=== PATIENT | male | born 1980 | race Caucasian/White ===

== ENCOUNTER 2020-08-01 22:34 | Emergency (ER) | payer OTHER ==
[2020-08-01 22:39] VITALS: RESP 18
[2020-08-01] MEDS ORDERED: ONDANSETRON 4 MG/2 ML VIAL IVP STA (23:01)
[2020-08-01] MEDS ORDERED: MAG HYDROX/AL HYDROX/SIMETH 30 ML, HYOSCYAMINE ELIXIR 10 ML, LIDOCAINE VISCOUS 2% 10 ML PO STA ×3 (23:02)
[2020-08-01] MEDS ORDERED: SODIUM CHLORIDE 0.9% 500 ML 500 ML IV STA (23:07)
[2020-08-01 23:25] LABS: Basophils # (A) 0.1 k/uL (0-0.2); Basophils % (A) 1 %; Eosinophils # (A) 0.7 k/uL (0-0.7); Eosinophils % (A) 5 %; HCT 44.2 % (39.0-53.0); HGB 15.1 gm/dL (13.0-17.5); Lymphocytes # (A) 2.3 k/uL (1.0-4.8); Lymphocytes % (A) 16 %; MCH 29.8 pg (25.0-35.0); MCHC 34.2 g/dL (31.0-37.0); Mean Platelet Volume 7.4; Monocytes # (A) 0.8 k/uL (0-1.0); Monocytes % (A) 6 %; Neutrophils # (A) 10.8 k/uL (1.3-7.7); Neutrophils % (A) 73 %; Platelet Count 270 k/uL (150-450); RBC 5.08 m/uL (4.30-5.90); RDW 14.2 % (11.5-15.5); WBC 14.8 k/uL (3.8-10.6)
--- NOTE | 2020-08-01 23:25 | ED ---
Abdominal Pain HPI - General Chief Complaint: Abdominal Pain Stated Complaint: Abd pain Time Seen by Provider: 08/01/20 22:36 Source: patient, EMS Mode of arrival: EMS Limitations: no limitations - History of Present Illness Initial Comments: This patient is a 40-year-old man brought by ambulance to have evaluation for left upper quadrant pain. The patient states that he has been having pains intermittently going back approximately 2 weeks. He first experienced this pain after he had eaten approximately a half gallon of branch dressing that she had purchased. The pain lasted number of hours and then resolved. It has recurred 3 or 4 times since then including when it came back on tonight. Tonight's episode was severe. Also the pain accompanied by nausea and vomiting. Tonight he had 3 or 4 episodes. He has not seen any blood or coffee-ground emesis. After EMS picked up the patient he was given Zofran 4 mg and fentanyl 100 g, and states that the pain is much better. MD Complaint: abdominal pain Onset/Timin -: week(s) Location: [facility] Radiation: none Migration to: no migration Severity: moderate Quality: aching Consistency: intermittent Improves With: nothing Worsens With: nothing Associated Symptoms: nausea, vomiting Treatments Prior to Arrival: other - Related Data Previous Rx's Medication Instructions Recorded Omeprazole 40 mg PO DAILY #7 capsule. 08/02/20 Allergies Allergy/AdvReac Type Severity Reaction Status Date / Time No Known Allergies Allergy Verified 08/01/20 22:39 Review of Systems ROS Statement: Those systems with pertinent positive or pertinent negative responses have been documented in the HPI. ROS Other: All systems not noted in ROS Statement are negative. Constitutional: Denies: fever, chills Respiratory: Denies: cough, dyspnea Cardiovascular: Denies: chest pain, palpitations, edema Gastrointestinal: Reports: abdominal pain, nausea, vomiting. Denies: diarrhea, constipation, hematemesis, melena, hematochezia Genitourinary: Denies: dysuria, frequency, hematuria, testicular pain, testicular mass Musculoskeletal: Denies: back pain Skin: Denies: rash Neurological: Denies: headache, weakness, numbness Past Medical History Additional Past Medical History / Comment(s): Pt states history of blood clots in left leg and lung in 2016 History of Any Multi-Drug Resistant Organisms: None Reported Past Surgical History: No Surgical Hx Reported Past Psychological History: Depression Smoking Status: Current every day smoker Past Alcohol Use History: None Reported Past Drug Use History: None Reported General Exam Limitations: no limitations General appearance: alert, in no apparent distress Head exam: Present: atraumatic, normocephalic Eye exam: Present: normal appearance. Absent: scleral icterus, conjunctival in jection ENT exam: Present: normal oropharynx Neck exam: Present: normal inspection Respiratory exam: Present: normal lung sounds bilaterally. Absent: respiratory distress, wheezes, rales, rhonchi, stridor Cardiovascular Exam: Present: regular rate, normal rhythm, normal heart sounds. Absent: systolic murmur, diastolic murmur, rubs, gallop GI/Abdominal exam: Present: soft, tenderness, normal bowel sounds. Absent: distended, guarding, rebound, rigid, mass, pulsatile mass, hernia Extremities exam: Present: normal inspection, normal capillary refill. Absent: pedal edema, calf tenderness Back exam: Present: normal inspection. Absent: CVA tenderness (R), CVA tenderness (L) Neurological exam: Present: alert Skin exam: Present: warm, dry, intact, normal color. Absent: rash Course Vital Signs 08/01/20 08/01/20 22:35 23:55 Temperature 98.8 F Pulse Rate 90 71 Respiratory 18 18 Rate Blood Pressure 136/92 130/71 O2 Sat by Pulse 95 96 Oximetry Medical Decision Making - Lab Data Result diagrams: 08/01/20 23:09 08/01/20 23:09 Lab Results 08/01/20 08/01/20 08/02/20 Range/Units 23:09 23:09 00:35 WBC 14.8 H (3.8-10.6) k/uL RBC 5.08 (4.30-5.90) m/uL Hgb 15.1 (13.0-17.5) gm/dL Hct 44.2 (39.0-53.0) % MCV 87.0 (80.0-100.0) fL MCH 29.8 (25.0-35.0) pg MCHC 34.2 (31.0-37.0) g/dL RDW 14.2 (11.5-15.5) % Plt Count 270 (150-450) k/uL MPV 7.4 Neutrophils % 73 % Lymphocytes % 16 % Monocytes % 6 % Eosinophils % 5 % Basophils % 1 % Neutrophils # 10.8 H (1.3-7.7) k/uL Lymphocytes # 2.3 (1.0-4.8) k/uL Monocytes # 0.8 (0-1.0) k/uL Eosinophils # 0.7 (0-0.7) k/uL Basophils # 0.1 (0-0.2) k/uL Sodium 140 (137-145) mmol/L Potassium 5.3 H (3.5-5.1) mmol/L Chloride 104 (98-107) mmol/L Carbon Dioxide 26 (22-30) mmol/L Anion Gap 10 mmol/L BUN 20 (9-20) mg/dL Creatinine 0.62 L (0.66-1.25) mg/dL Est GFR (CKD-EPI)AfAm >90 (>60 ml/min/1.73 sqM) Est GFR (CKD-EPI)NonAf >90 (>60 ml/min/1.73 sqM) Glucose 124 H (74-99) mg/dL Calcium 9.7 (8.4-10.2) mg/dL Total Bilirubin 0.9 (0.2-1.3) mg/dL AST 40 (17-59) U/L ALT 29 (4-49) U/L Alkaline Phosphatase 57 (38-126) U/L Total Protein 7.5 (6.3-8.2) g/dL Albumin 4.2 (3.5-5.0) g/dL Amylase 50 (30-110) U/L Lipase 155 (23-300) U/L Urine Color Yellow Urine Appearance Clear (Clear) Urine pH 6.0 (5.0-8.0) Ur Specific [place] 1.028 (1.001-1.035) Urine Protein Trace H (Negative) Urine Glucose (UA) Negative (Negative) Urine Ketones Negative (Negative) Urine Blood Small H (Negative) Urine Nitrite Negative (Negative) Urine Bilirubin Negative (Negative) Urine Urobilinogen 2.0 (<2.0) mg/dL Ur Leukocyte Esterase Negative (Negative) Urine RBC 5 (0-5) /hpf Urine WBC 2 (0-5) /hpf Ur Squamous Epith Cells <1 (0-4) /hpf Hyaline Casts 1 (0-2) /lpf Urine Mucus Moderate H (None) /hpf Disposition Clinical Impression: Abdominal pain, Gastritis Disposition: HOME SELF-CARE Condition: Good Instructions (If sedation given, give patient instructions): Abdominal Pain ( ED) Prescriptions: Omeprazole 40 mg PO DAILY #7 capsule.dr Is patient prescribed a controlled substance at d/c from ED?: No Referrals: None,Stated [REFERRING] - 1-2 days
[2020-08-01 23:30] LABS: ALT 29 U/L (4-49); AST 40 U/L (17-59); African American GFR (CKD) >90 (>60 ml/min/1.73 sqM); Albumin 4.2 g/dL (3.5-5.0); Alkaline Phosphatase 57 U/L (38-126); Amylase 50 U/L (30-110); Anion Gap 10 mmol/L; Blood Urea Nitrogen 20 mg/dL (9-20); Calcium 9.7 mg/dL (8.4-10.2); Carbon Dioxide 26 mmol/L (22-30); Chloride 104 mmol/L (98-107); Glucose 124 mg/dL (74-99); Lipase 155 U/L (23-300); Non-African American GFR(CKD) >90 (>60 ml/min/1.73 sqM); Sodium 140 mmol/L (137-145); Total Bilirubin 0.9 mg/dL (0.2-1.3); Total Protein 7.5 g/dL (6.3-8.2)
[2020-08-01 23:44] LABS: Potassium 5.3 mmol/L (3.5-5.1)
--- NOTE | 2020-08-02 00:30 | CT ---
EXAMINATION TYPE: CT abdomen pelvis wo con DATE OF EXAM: 08/02/2020 COMPARISON: None HISTORY: Epigastric pain CT DLP: mGycm Automated exposure control for dose reduction was used. Images obtained from the diaphragm to the floor the pelvis with no contrast. Lung bases are clear. There is no pleural effusion. Heart size is normal. There is no pericardial eff usion. Liver spleen pancreas gallbladder appear normal. Bile ducts are not dilated. There is no adrenal mass. Kidneys have normal size and contour. There is 1 mm calculus interpolar rig ht kidney. There is no hydronephrosis. Bladder distends smoothly. There is no inguinal hernia. There is no free fluid in the pelvis. Ureters are not dilated. There is no retroperitoneal adenopathy. Lumbar vertebra have normal alignment. Disc spaces are fairly normal. The bony pelvis is intact. There is no mesenteric edema. There is no ascites or free air. There is no sign of a bowel obstructio n. Appendix is medial and appears normal. IMPRESSION: Normal appendix. No evidence of renal obstruction. I do not see a cause for epigastric pain. Left tin y nonobstructing right renal calculus.
[2020-08-02] MEDS ORDERED: KETOROLAC 15 MG/ML 1 ML VIAL IVP STA (00:44)
[2020-08-02 00:47] LABS: Appearance,Urine Clear (Clear); Bilirubin,Urine Negative (Negative); Blood,Urine Small (Negative); Color,Urine Yellow; Glucose,Urine (UA) Negative (Negative); Hyaline Casts,Urine 1 /lpf (0-2); Ketones,Urine Negative (Negative); Leukocyte Esterase,Urine Negative (Negative); Mucus,Urine Moderate /hpf; Nitrite,Urine Negative (Negative); Protein,Urine Trace (Negative); RBC,Urine 5 /hpf (0-5); Specific Gravity,Urine 1.028 (1.001-1.035); Squamous Epithelial Cell,Urine <1 /hpf (0-4); WBC,Urine 2 /hpf (0-5)
--- NOTE | 2020-08-02 01:55 | US ---
EXAM: US Abdomen Limited - Right Upper Quadrant CLINICAL HISTORY: ITS.REASON US Reason: attention upper abdomen TECHNIQUE: Real-time ultrasound of the abdomen with image documentation. COMPARISON: correlation is made with CT performed on same date FINDINGS: Liver: Diffusely increased in echogenicity with no surface nodularity. Borderline enlarged liver with right hepatic lobe measuring 18.8 cm in craniocaudal dimension. Limited evaluation for masses due to extensive sound attenuation. No intrahepatic bile duct dilation. Gallbladder: Distended with no shadowing gallstones. No significant wall thickening. Negative sonographic [place]'s per nozzleman report. Common bile duct: Unremarkable as visualized. No stones. No dilation. Common bile duct measures 3 mm in diameter. Pancreas: Obscured by overlying bowel gas. Right kidney: Right kidney measures 10.4 cm in length.. No stones. No solid mass. No hydronephrosis. IMPRESSION: 1. Distended gallbladder with no shadowing gallstones or sonographic evidence of acute cholecystitis. 2. No intrahepatic or extra hepatic biliary ductal dilation. 3. No hydronephrosis or shadowing stones in the right kidney. 4. Hepatic steatosis.
[2020-08-02 02:27] VITALS: BP 128/82; PULSE 86; TEMP 98
== END 2020-08-02 02:20 | disposition home or self-care (01) ==
LOC: EC 22:34
DX: K29.70 Gastritis, unspecified, without bleeding (principal); F17.200 Nicotine dependence, unspecified, uncomplicated
CPT/HCPCS: 36415; 80053; 82150; 83690; 85025; 81001; 76705; 74176; 99284; 96374; 96375; 96361; J2405; J1885

== ENCOUNTER 2020-12-06 12:04 | Emergency (ER) | payer OTHER ==
[2020-12-06 12:30] VITALS: BP 127/83; PULSE 91; RESP 18; TEMP 98
[2020-12-06] MEDS ORDERED: SODIUM CHLORIDE 0.9% 1,000 ML IV ONE (13:58)
[2020-12-06] MEDS ORDERED: KETOROLAC 15 MG/ML 1 ML VIAL IVP STA (13:58)
--- NOTE | 2020-12-06 14:02 | ED ---
General Adult HPI - General Chief complaint: Dizziness Stated complaint: Pain in groin/neck/headache/dizziness Time Seen by Provider: 12/06/20 13:50 Source: patient, RN notes reviewed, old records reviewed Mode of arrival: ambulatory Limitations: no limitations - History of Present Illness Initial comments: 40-year-old male with several complaints. Complains of occipital headache, fatigue, dizziness as well as pain in both legs and swelling in the left leg with history of DVT. He denies chest pain or dyspnea. Denies abdominal pain nausea vomiting. Symptoms have been present for the past several weeks. He does have chronic pain but states this is different. He has pain in both legs and he noted some swelling in the left leg with previous history of DVT in that leg. He is not currently on any anticoagulation. No reported fevers. No URI symptoms. Minimal cough. - Related Data Previous Rx's Medication Instructions Recorded Omeprazole 40 mg PO DAILY #7 capsule. 08/02/20 Allergies Allergy/AdvReac Type Severity Reaction Status Date / Time No Known Allergies Allergy Verified 12/06/20 12:30 Review of Systems ROS Statement: Those systems with pertinent positive or pertinent negative responses have been documented in the HPI. ROS Other: All systems not noted in ROS Statement are negative. Past Medical History Additional Past Medical History / Comment(s): Pt states history of blood clots in left leg and lung in 2016 History of Any Multi-Drug Resistant Organisms: None Reported Past Surgical History: No Surgical Hx Reported Past Psychological History: Depression Smoking Status: Current every day smoker Past Alcohol Use History: None Reported Past Drug Use History: None Reported General Exam Limitations: no limitations General appearance: alert, in no apparent distress Head exam: Present: atraumatic, normocephalic Eye exam: Present: normal appearance, PERRL ENT exam: Present: normal exam Neck exam: Present: normal inspection. Absent: tenderness, meningismus Respiratory exam: Present: normal lung sounds bilaterally. Absent: respiratory distress, wheezes Cardiovascular Exam: Present: regular rate, normal rhythm GI/Abdominal exam: Present: soft. Absent: distended, tenderness, guarding Extremities exam: Present: normal inspection, normal capillary refill. Absent: pedal edema, calf tenderness Neurological exam: Present: alert, CN II-XII intact. Absent: motor sensory deficit Psychiatric exam: Present: normal affect, normal mood. Absent: anxious, suicidal ideation Skin exam: Present: warm, dry, intact. Absent: cyanosis, diaphoretic Course Vital Signs 12/06/20 12:27 Temperature 98.0 F Pulse Rate 91 Respiratory 18 Rate Blood Pressure 127/83 O2 Sat by Pulse 100 Oximetry Medical Decision Making - Medical Decision Making 40-year-old male presenting with several issues ongoing for the past several weeks, headache, myalgia history of DVT. Patient had ultrasound performed which is negative for DVT. He has mild leukocytosis, otherwise unremarkable laboratory testing. Head CT is negative for intracranial hemorrhage or mass effect, there is some loss of differentiation and does recommend MRI. Patient is informed of this and will follow with his primary care. He states he will likely be only get an appointment tomorrow. Return parameters discussed. - Lab Data Result diagrams: 12/06/20 14:08 12/06/20 14:08 Lab Results 12/06/20 12/06/20 12/06/20 Range/Units 14:08 14:08 14:08 WBC 12.4 H (3.8-10.6) k/uL RBC 5.11 (4.30-5.90) m/uL Hgb 15.0 (13.0-17.5) gm/dL Hct 43.9 (39.0-53.0) % MCV 85.9 (80.0-100.0) fL MCH 29.4 (25.0-35.0) pg MCHC 34.3 (31.0-37.0) g/dL RDW 13.6 (11.5-15.5) % Plt Count 262 (150-450) k/uL MPV 7.0 Neutrophils % 58 % Lymphocytes % 28 % Monocytes % 6 % Eosinophils % 7 % Basophils % 1 % Neutrophils # 7.2 (1.3-7.7) k/uL Lymphocytes # 3.4 (1.0-4.8) k/uL Monocytes # 0.7 (0-1.0) k/uL Eosinophils # 0.9 H (0-0.7) k/uL Basophils # 0.1 (0-0.2) k/uL PT 9.7 (9.0-12.0) sec INR 0.9 (<1.2) APTT 22.6 (22.0-30.0) sec Sodium (137-145) mmol/L Potassium (3.5-5.1) mmol/L Chloride (98-107) mmol/L Carbon Dioxide (22-30) mmol/L Anion Gap mmol/L BUN (9-20) mg/dL Creatinine (0.66-1.25) mg/dL Est GFR (CKD-EPI)AfAm (>60 ml/min/1.73 sqM) Est GFR (CKD-EPI)NonAf (>60 ml/min/1.73 sqM) Glucose (74-99) mg/dL Calcium (8.4-10.2) mg/dL Magnesium (1.6-2.3) mg/dL Total Bilirubin (0.2-1.3) mg/dL AST (17-59) U/L ALT (4-49) U/L Alkaline Phosphatase (38-126) U/L Total Protein (6.3-8.2) g/dL Albumin (3.5-5.0) g/dL Urine Opiates Screen (NotDetected) Ur Oxycodone Screen (NotDetected) Urine Methadone Screen (NotDetected) Ur Propoxyphene Screen (NotDetected) Ur Barbiturates Screen (NotDetected) U Tricyclic Antidepress (NotDetected) Ur Phencyclidine Scrn (NotDetected) Ur Amphetamines Screen (NotDetected) U Methamphetamines Scrn (NotDetected) U Benzodiazepines Scrn (NotDetected) Urine Cocaine Screen (NotDetected) U Marijuana (THC) Screen (NotDetected) Coronavirus (PCR) Not Detected (Not Detectd) 12/06/20 12/06/20 12/06/20 Range/Units 14:08 14:08 14:08 WBC (3.8-10.6) k/uL RBC (4.30-5.90) m/uL Hgb (13.0-17.5) gm/dL Hct (39.0-53.0) % MCV (80.0-100.0) fL MCH (25.0-35.0) pg MCHC (31.0-37.0) g/dL RDW (11.5-15.5) % Plt Count (150-450) k/uL MPV Neutrophils % % Lymphocytes % % Monocytes % % Eosinophils % % Basophils % % Neutrophils # (1.3-7.7) k/uL Lymphocytes # (1.0-4.8) k/uL Monocytes # (0-1.0) k/uL Eosinophils # (0-0.7) k/uL Basophils # (0-0.2) k/uL PT (9.0-12.0) sec INR (<1.2) APTT (22.0-30.0) sec Sodium 140 (137-145) mmol/L Potassium 5.1 (3.5-5.1) mmol/L Chloride 106 (98-107) mmol/L Carbon Dioxide 24 (22-30) mmol/L Anion Gap 10 mmol/L BUN 19 (9-20) mg/dL Creatinine 0.67 (0.66-1.25) mg/dL Est GFR (CKD-EPI)AfAm >90 (>60 ml/min/1.73 sqM) Est GFR (CKD-EPI)NonAf >90 (>60 ml/min/1.73 sqM) Glucose 96 (74-99) mg/dL Calcium 9.8 (8.4-10.2) mg/dL Magnesium 1.8 (1.6-2.3) mg/dL Total Bilirubin 0.9 (0.2-1.3) mg/dL AST 48 (17-59) U/L ALT 33 (4-49) U/L Alkaline Phosphatase 73 (38-126) U/L Total Protein 7.3 (6.3-8.2) g/dL Albumin 4.2 (3.5-5.0) g/dL Urine Opiates Screen Detected H (NotDetected) Ur Oxycodone Screen Not Detected (NotDetected) Urine Methadone Screen Not Detected (NotDetected) Ur Propoxyphene Screen Not Detected (NotDetected) Ur Barbiturates Screen Not Detected (NotDetected) U Tricyclic Antidepress Not Detected (NotDetected) Ur Phencyclidine Scrn Not Detected (NotDetected) Ur Amphetamines Screen Not Detected (NotDetected) U Methamphetamines Scrn Not Detected (NotDetected) U Benzodiazepines Scrn Not Detected (NotDetected) Urine Cocaine Screen Not Detected (NotDetected) U Marijuana (THC) Screen Not Detected (NotDetected) Coronavirus (PCR) (Not Detectd) Disposition Clinical Impression: Headache Disposition: HOME SELF-CARE Condition: Good Instructions (If sedation given, give patient instructions): Dizziness (ED), Acute Headache (ED) Is patient prescribed a controlled substance at d/c from ED?: No Referrals: Chinedu Mcfadden DO [Primary Care Provider] - 1-2 days Time of Disposition: 16:18
[2020-12-06 14:37] LABS: Basophils # (A) 0.1 k/uL (0-0.2); Basophils % (A) 1 %; Eosinophils # (A) 0.9 k/uL (0-0.7); Eosinophils % (A) 7 %; HCT 43.9 % (39.0-53.0); Lymphocytes # (A) 3.4 k/uL (1.0-4.8); Lymphocytes % (A) 28 %; MCH 29.4 pg (25.0-35.0); MCHC 34.3 g/dL (31.0-37.0); MCV 85.9 fL (80.0-100.0); Monocytes # (A) 0.7 k/uL (0-1.0); Monocytes % (A) 6 %; Neutrophils # (A) 7.2 k/uL (1.3-7.7); Neutrophils % (A) 58 %; Platelet Count 262 k/uL (150-450); RBC 5.11 m/uL (4.30-5.90); RDW 13.6 % (11.5-15.5); WBC 12.4 k/uL (3.8-10.6)
[2020-12-06 14:52] LABS: Amphetamine Screen,Urine Not Detected (NotDetected); Barbiturate Screen,Urine Not Detected (NotDetected); Benzodiazepines Screen,Urine Not Detected (NotDetected); Cocaine Screen,Urine Not Detected (NotDetected); Methadone Screen, Urine Not Detected (NotDetected); Opiate Screen,Urine Detected (NotDetected); Oxycodone Screen, Urine Not Detected (NotDetected); Phencyclidine Screen,Urine Not Detected (NotDetected); Tricyclic Antidepressant,Urine Not Detected (NotDetected); Urn Cannabinoid Scrn Not Detected (NotDetected)
--- NOTE | 2020-12-06 14:54 | CT ---
EXAMINATION TYPE: CT brain wo con DATE OF EXAM: 12/06/2020 COMPARISON: None HISTORY: headache CT DLP: 1052.4 mGycm. Automated Exposure Control for Dose Reduction was Utilized. TECHNIQUE: CT scan of the head is performed without contrast. FINDINGS: There is no acute intracranial hemorrhage, mass effect, or midline shift identified. [place] ventricular white matter shows some questionable patchy low attenuation. The ventricles and sulci ar e within normal limits in size. The globes are intact and the visualized sinuses are clear. IMPRESSION: No acute intracranial hemorrhage, mass effect, or midline shift is seen. Nonspecific whi te matter low-attenuation could represent demyelination, consider MRI as indicated.
[2020-12-06 15:06] LABS: INR 0.9 (<1.2); Partial Thromboplastin Time 22.6 sec (22.0-30.0); Prothrombin Time 9.7 sec (9.0-12.0)
[2020-12-06 15:26] LABS: ALT 33 U/L (4-49); AST 48 U/L (17-59); African American GFR (CKD) >90 (>60 ml/min/1.73 sqM); Albumin 4.2 g/dL (3.5-5.0); Alkaline Phosphatase 73 U/L (38-126); Anion Gap 10 mmol/L; Blood Urea Nitrogen 19 mg/dL (9-20); Calcium 9.8 mg/dL (8.4-10.2); Carbon Dioxide 24 mmol/L (22-30); Chloride 106 mmol/L (98-107); Glucose 96 mg/dL (74-99); Non-African American GFR(CKD) >90 (>60 ml/min/1.73 sqM); Sodium 140 mmol/L (137-145); Total Bilirubin 0.9 mg/dL (0.2-1.3); Total Protein 7.3 g/dL (6.3-8.2)
[2020-12-06 15:28] LABS: Potassium 5.1 mmol/L (3.5-5.1)
--- NOTE | 2020-12-06 15:40 | US ---
EXAMINATION TYPE: US venous doppler duplex LE DATE OF EXAM: 12/06/2020 3:34 PM COMPARISON: NONE CLINICAL HISTORY: dvt?. SIDE PERFORMED: Bilateral TECHNIQUE: The lower extremity deep venous system is examined utilizing real time linear array sonog dylan with graded compression, doppler sonography and color-flow sonography. VESSELS IMAGED: Common Femoral Vein Deep Femoral Vein Greater Saphenous Vein * Femoral Vein Popliteal Vein Small Saphenous Vein * Proximal Calf Veins (* superficial vessels) Right Leg: Appears negative for DVT. Left Leg: Appears negative for DVT. Morbidly obese patient, technically difficult study. IMPRESSION: Grayscale, color doppler, spectral doppler imaging performed of the deep veins of the lo wer extremities. There is normal flow, compressibility, vascular waveforms.
== END 2020-12-06 16:30 | disposition home or self-care (01) ==
LOC: EC 12:04
DX: R51.9 Headache, unspecified (principal); R42 Dizziness and giddiness; M54.2 Cervicalgia; R10.30 Lower abdominal pain, unspecified; R05 Cough; R53.83 Other fatigue; M79.604 Pain in right leg; M79.605 Pain in left leg; M79.89 Other specified soft tissue disorders; F32.9 Major depressive disorder, single episode, unspecified; F17.200 Nicotine dependence, unspecified, uncomplicated; Z86.718 Personal history of other venous thrombosis and embolism; Z20.822 Contact with and (suspected) exposure to COVID-19
CPT/HCPCS: 36415; 80053; 83735; 85025; 85610; 85730; 80306; 87635; 93970; 70450; 99284; 96374; J1885

== ENCOUNTER 2021-07-25 17:18 | Inpatient (IN) | payer OTHER ==
[2021-07-25] MEDS ORDERED: SODIUM CHLORIDE 0.9% 1,000 ML IV STA (19:59)
[2021-07-25] MEDS ORDERED: methylPREDNISolone SOD SUCCI 125 MG/2 ML VIAL IV STA (19:59)
[2021-07-25] MEDS ORDERED: IPRATROPIUM-ALBUTEROL 3 ML NEB INHALATION STA (19:59)
--- NOTE | 2021-07-25 20:01 | ED ---
SOB HPI - General Chief Complaint: Shortness of Breath Stated Complaint: CRYSTAL Time Seen by Provider: 07/25/21 19:28 Source: patient Mode of arrival: ambulatory Limitations: no limitations - History of Present Illness Initial Comments: 41-year-old male with past medical history of PE/DVT presents to the emergency department with reported cough, congestion and shortness of breath for the past 10 days. He went into an urgent care last week with his family as they'll had similar symptoms. They were swabbed for Covid and it was negative. He was given prednisone 40 mg twice daily for 5 days. Finished the prescription. States that after he finished the prescription his symptoms got worse. He began having worsening shortness of breath with exertion. He also reports to "lung pain" at the right shoulder. Patient has chronic lower externally edema which he states is not any worse than normal. Denies calf pain. Does state that he had a history of a PE approximately 8 years ago. He is supposed to be on anticoagulation however states he has not taken medications in greater than 2 years. He also had a [place] filter which was removed. Patient states that he had a full workup for the blood clot however never found a source. He no longer follows with anyone to manage his PE. Patient does arrive with a fever. Denies ripping or tearing sensation to his back. Denies any cardiac history. No other alleviating, precipitating factors - Related Data Home Medications Medication Instructions Recorded Confirmed Albuterol Sulfate [Ventolin HFA] 2 puff INHALATION RT-Q6H PRN 07/25/21 07/25/21 Ergocalciferol (Vitamin D2) 1,250 mcg PO MO 07/25/21 07/25/21 [Drisdol (50,000 Iu)] Famotidine 40 mg PO BID PRN 07/25/21 07/25/21 HYDROcodone/APAP 10-325MG [[place] 1 tab PO Q6HR PRN 07/25/21 07/25/21 10-325] Allergies Allergy/AdvReac Type Severity Reaction Status Date / Time No Known Allergies Allergy Verified 07/25/21 18:27 Review of Systems ROS Statement: Those systems with pertinent positive or pertinent negative responses have been documented in the HPI. ROS Other: All systems not noted in ROS Statement are negative. Past Medical History Past Medical History: COPD Additional Past Medical History / Comment(s): Pt states history of blood clots in left leg and lung in 2016 History of Any Multi-Drug Resistant Organisms: None Reported Past Surgical History: No Surgical Hx Reported Past Psychological History: Depression Smoking Status: Current every day smoker Past Alcohol Use History: None Reported Past Drug Use History: None Reported General Exam Limitations: no limitations Course Vital Signs 07/25/21 07/25/21 07/25/21 18:27 19:43 20:30 Temperature 100.6 F H Pulse Rate 105 H 106 H Respiratory 22 22 18 Rate Blood Pressure 165/86 O2 Sat by Pulse 94 L 98 Oximetry 07/25/21 07/25/21 20:55 23:01 Temperature Pulse Rate 106 H 105 H Respiratory 18 Rate Blood Pressure 145/93 O2 Sat by Pulse 95 Oximetry - Reevaluation(s) Reevaluation #1: 07/25/21 22:[address] Choi as we are unable to find a schedule for PERT team. He recommends aspirin, echo and serial troponins. He is aware of PE diagnosis and will determine in the morning who will be on for PERT team Medical Decision Making - Medical Decision Making Upon arrival patient placed into room 3. A thorough history and physical exam was performed. Patient placed on continuous pulse ox and cardiac monitoring. 12-lead EKG obtained. Patient does have a temp of 100.6 and therefore is given Tylenol. Laboratory studies are conducted. White count 16.6. Troponin 0.318. BNP 1750. Covid and flu are not detected. Due to the patient's history of PE he is sent for a computed tomography scan which demonstrates multiple large pulmonary emboli mainly in the lower lobe bilaterally. No evidence of heart strain on CT. Patient placed on a heparin drip and given an aspirin. Called and spoke with Dr. Choi as there is no schedule for the PERT team. Dr. Choi is unaware of who is on however states that he will figure it out tomorrow. Lower trauma Dopplers and echo ordered. Called and spoke with Shirley from [facility] who agreed to accept admission. Patient hemodynamically stable and his significant or in stable condition - Lab Data Result diagrams: 07/25/21 20:39 07/25/21 20:39 Lab Results 07/25/21 07/25/21 07/25/21 Range/Units 18:33 20:39 20:39 WBC 16.6 H (3.8-10.6) k/uL RBC 5.41 (4.30-5.90) m/uL Hgb 15.8 (13.0-17.5) gm/dL Hct 48.2 (39.0-53.0) % MCV 89.0 (80.0-100.0) fL MCH 29.1 (25.0-35.0) pg MCHC 32.7 (31.0-37.0) g/dL RDW 13.8 (11.5-15.5) % Plt Count 242 (150-450) k/uL MPV 7.3 Neutrophils % 65 % Lymphocytes % 25 % Monocytes % 5 % Eosinophils % 4 % Basophils % 1 % Neutrophils # 10.8 H (1.3-7.7) k/uL Lymphocytes # 4.2 (1.0-4.8) k/uL Monocytes # 0.8 (0-1.0) k/uL Eosinophils # 0.6 (0-0.7) k/uL Basophils # 0.1 (0-0.2) k/uL PT 9.6 (9.0-12.0) sec INR 0.9 (<1.2) APTT 23.1 (22.0-30.0) sec Sodium (137-145) mmol/L Potassium (3.5-5.1) mmol/L Chloride (98-107) mmol/L Carbon Dioxide (22-30) mmol/L Anion Gap mmol/L BUN (9-20) mg/dL Creatinine (0.66-1.25) mg/dL Est GFR (CKD-EPI)AfAm (>60 ml/min/1.73 sqM) Est GFR (CKD-EPI)NonAf (>60 ml/min/1.73 sqM) Glucose (74-99) mg/dL Plasma Lactic Acid Nestor (0.7-2.0) mmol/L Calcium (8.4-10.2) mg/dL Magnesium (1.6-2.3) mg/dL Total Bilirubin (0.2-1.3) mg/dL AST (17-59) U/L ALT (4-49) U/L Alkaline Phosphatase (38-126) U/L Troponin I (0.000-0.034) ng/mL NT-Pro-B Natriuret Pep pg/mL Total Protein (6.3-8.2) g/dL Albumin (3.5-5.0) g/dL Coronavirus (PCR) Not Detected (Not Detectd) Influenza Type A RNA (Not Detectd) Influenza Type B (PCR) (Not Detectd) 07/25/21 07/25/21 07/25/21 Range/Units 20:39 20:39 20:39 WBC (3.8-10.6) k/uL RBC (4.30-5.90) m/uL Hgb (13.0-17.5) gm/dL Hct (39.0-53.0) % MCV (80.0-100.0) fL MCH (25.0-35.0) pg MCHC (31.0-37.0) g/dL RDW (11.5-15.5) % Plt Count (150-450) k/uL MPV Neutrophils % % Lymphocytes % % Monocytes % % Eosinophils % % Basophils % % Neutrophils # (1.3-7.7) k/uL Lymphocytes # (1.0-4.8) k/uL Monocytes # (0-1.0) k/uL Eosinophils # (0-0.7) k/uL Basophils # (0-0.2) k/uL PT (9.0-12.0) sec INR (<1.2) APTT (22.0-30.0) sec Sodium 141 (137-145) mmol/L Potassium 5.4 H (3.5-5.1) mmol/L Chloride 108 H (98-107) mmol/L Carbon Dioxide 23 (22-30) mmol/L Anion Gap 10 mmol/L BUN 17 (9-20) mg/dL Creatinine 0.85 (0.66-1.25) mg/dL Est GFR (CKD-EPI)AfAm >90 (>60 ml/min/1.73 sqM) Est GFR (CKD-EPI)NonAf >90 (>60 ml/min/1.73 sqM) Glucose 107 H (74-99) mg/dL Plasma Lactic Acid Nestor 1.4 (0.7-2.0) mmol/L Calcium 9.9 (8.4-10.2) mg/dL Magnesium 2.0 (1.6-2.3) mg/dL Total Bilirubin 1.3 (0.2-1.3) mg/dL AST 50 (17-59) U/L ALT 43 (4-49) U/L Alkaline Phosphatase 83 (38-126) U/L Troponin I 0.318 H* (0.000-0.034) ng/mL NT-Pro-B Natriuret Pep pg/mL Total Protein 8.4 H (6.3-8.2) g/dL Albumin 4.5 (3.5-5.0) g/dL Coronavirus (PCR) (Not Detectd) Influenza Type A RNA (Not Detectd) Influenza Type B (PCR) (Not Detectd) 07/25/21 07/25/21 Range/Units 20:39 20:39 WBC (3.8-10.6) k/uL RBC (4.30-5.90) m/uL Hgb (13.0-17.5) gm/dL Hct (39.0-53.0) % MCV (80.0-100.0) fL MCH (25.0-35.0) pg MCHC (31.0-37.0) g/dL RDW (11.5-15.5) % Plt Count (150-450) k/uL MPV Neutrophils % % Lymphocytes % % Monocytes % % Eosinophils % % Basophils % % Neutrophils # (1.3-7.7) k/uL Lymphocytes # (1.0-4.8) k/uL Monocytes # (0-1.0) k/uL Eosinophils # (0-0.7) k/uL Basophils # (0-0.2) k/uL PT (9.0-12.0) sec INR (<1.2) APTT (22.0-30.0) sec Sodium (137-145) mmol/L Potassium (3.5-5.1) mmol/L Chloride (98-107) mmol/L Carbon Dioxide (22-30) mmol/L Anion Gap mmol/L BUN (9-20) mg/dL Creatinine (0.66-1.25) mg/dL Est GFR (CKD-EPI)AfAm (>60 ml/min/1.73 sqM) Est GFR (CKD-EPI)NonAf (>60 ml/min/1.73 sqM) Glucose (74-99) mg/dL Plasma Lactic Acid Nestor (0.7-2.0) mmol/L Calcium (8.4-10.2) mg/dL Magnesium (1.6-2.3) mg/dL Total Bilirubin (0.2-1.3) mg/dL AST (17-59) U/L ALT (4-49) U/L Alkaline Phosphatase (38-126) U/L Troponin I (0.000-0.034) ng/mL NT-Pro-B Natriuret Pep 1750 pg/mL Total Protein (6.3-8.2) g/dL Albumin (3.5-5.0) g/dL Coronavirus (PCR) (Not Detectd) Influenza Type A RNA Not Detected (Not Detectd) Influenza Type B (PCR) Not Detected (Not Detectd) - EKG Data EKG Comments: EKG demonstrates a sinus tachycardia with a ventricular rate of 122. CO interval 176. QRS 90. QTC of 438. There is biphasic T waves in V2 through V4. Significant baseline artifact. Disposition Clinical Impression: Acute respiratory insufficiency, Pulmonary embolism, Leukocytosis, NSTEMI (non- ST elevated myocardial infarction) Disposition: ADMITTED IP TO THIS HOSP Condition: Serious Is patient prescribed a controlled substance at d/c from ED?: No Decision to Admit Reason: Admit from EC Decision Date: 07/25/21 Decision Time: 23:04
[2021-07-25 20:50] LABS: Basophils # (A) 0.1 k/uL (0-0.2); Basophils % (A) 1 %; Eosinophils # (A) 0.6 k/uL (0-0.7); Eosinophils % (A) 4 %; HCT 48.2 % (39.0-53.0); HGB 15.8 gm/dL (13.0-17.5); Lymphocytes # (A) 4.2 k/uL (1.0-4.8); Lymphocytes % (A) 25 %; MCH 29.1 pg (25.0-35.0); MCHC 32.7 g/dL (31.0-37.0); Mean Platelet Volume 7.3; Monocytes # (A) 0.8 k/uL (0-1.0); Monocytes % (A) 5 %; Neutrophils # (A) 10.8 k/uL (1.3-7.7); Neutrophils % (A) 65 %; Platelet Count 242 k/uL (150-450); RBC 5.41 m/uL (4.30-5.90); RDW 13.8 % (11.5-15.5); WBC 16.6 k/uL (3.8-10.6)
[2021-07-25 21:09] LABS: INR 0.9 (<1.2); Partial Thromboplastin Time 23.1 sec (22.0-30.0); Prothrombin Time 9.6 sec (9.0-12.0)
[2021-07-25 21:17] LABS: ALT 43 U/L (4-49); AST 50 U/L (17-59); African American GFR (CKD) >90 (>60 ml/min/1.73 sqM); Albumin 4.5 g/dL (3.5-5.0); Alkaline Phosphatase 83 U/L (38-126); Blood Urea Nitrogen 17 mg/dL (9-20); Calcium 9.9 mg/dL (8.4-10.2); Carbon Dioxide 23 mmol/L (22-30); Glucose 107 mg/dL (74-99); Non-African American GFR(CKD) >90 (>60 ml/min/1.73 sqM); Total Bilirubin 1.3 mg/dL (0.2-1.3); Total Protein 8.4 g/dL (6.3-8.2)
[2021-07-25 21:25] LABS: Anion Gap 10 mmol/L; Chloride 108 mmol/L (98-107); Potassium 5.4 mmol/L (3.5-5.1); Sodium 141 mmol/L (137-145)
--- NOTE | 2021-07-25 21:53 | CT ---
EXAMINATION TYPE: CT chest angio for PE DATE OF EXAM: 07/25/2021 COMPARISON: None HISTORY: CRYSTAL, h/o PE CT DLP: 1146.2 mGycm Automated exposure control for dose reduction was used. CONTRAST: Performed with IV Contrast, patient injected with 100 mL of Isovue 370. There are Three-D postprocessed images. The lungs are clear of consolidation. There is no pleural effusion. There is no evidence of a pulmona ry mass. Heart size is normal. There is no pericardial effusion. There are multiple large filling defects in the pulmonary arteries bilaterally extending into the low er lobes. There is also involvement of the upper lobe pulmonary arteries. Thoracic aorta is intact. There is no aneurysm or dissection. There is no evidence of pneumothorax. The thoracic spine is intact. Sternum is intact. Upper abdominal soft tissues are intact. IMPRESSION: Multiple large pulmonary emboli mainly in the lower lobe pulmonary arteries. No evidence of right hea rt strain. Normal heart. No suspicious pulmonary mass.
[2021-07-25] MEDS ORDERED: HEPARIN SODIUM 1,000 UN/ML (10ML VL) IV ONE (22:07)
[2021-07-25] MEDS ORDERED: HEPARIN SODIUM 1,000 UN/ML (10ML VL) IV PRN (22:07)
[2021-07-25] MEDS: HEPARIN SOD,PORK IN 0.45% NACL 25,000 UNIT in 0.45% NACL 1 250ML.BAG IV SCH (22:23)
[2021-07-25] MEDS ORDERED: HYDROmorphone 1 MG/ML 1 ML SYRINGE IVP STA (22:26)
[2021-07-25] MEDS ORDERED: ACETAMINOPHEN TAB 500 MG TAB PO STA (22:51)
[2021-07-25] MEDS ORDERED: ASPIRIN 325 MG TAB PO STA (22:59)
[2021-07-25] MEDS ORDERED: NALOXONE 0.4 MG/ML 1 ML VIAL IV PRN (23:04)
[2021-07-26] MEDS: HYDROmorphone 1 MG/ML 1 ML SYRINGE IVP PRN ×6 (01:56→22:30)
[2021-07-26 06:56] LABS: Basophils # (A) 0.1 k/uL (0-0.2); Basophils % (A) 0 %; Eosinophils % (A) 0 %; HCT 46.7 % (39.0-53.0); HGB 14.9 gm/dL (13.0-17.5); Hypochromasia Slight; Lymphocytes % (A) 14 %; MCH 29.1 pg (25.0-35.0); MCHC 31.9 g/dL (31.0-37.0); Mean Platelet Volume 7.4; Monocytes # (A) 0.2 k/uL (0-1.0); Monocytes % (A) 2 %; Neutrophils # (A) 11.6 k/uL (1.3-7.7); Neutrophils % (A) 83 %; Platelet Count 237 k/uL (150-450); RBC 5.13 m/uL (4.30-5.90); RDW 13.8 % (11.5-15.5); WBC 13.9 k/uL (3.8-10.6)
[2021-07-26 07:27] LABS: African American GFR (CKD) >90 (>60 ml/min/1.73 sqM); Anion Gap 7 mmol/L; Blood Urea Nitrogen 17 mg/dL (9-20); Calcium 9.8 mg/dL (8.4-10.2); Carbon Dioxide 26 mmol/L (22-30); Chloride 107 mmol/L (98-107); Glucose 230 mg/dL (74-99); Non-African American GFR(CKD) >90 (>60 ml/min/1.73 sqM); Potassium 4.9 mmol/L (3.5-5.1); Sodium 140 mmol/L (137-145)
--- NOTE | 2021-07-26 07:37 | US ---
EXAMINATION TYPE: US venous doppler duplex LE DATE OF EXAM: 07/26/2021 7:25 AM COMPARISON: US CLINICAL HISTORY: bilateral pe. PE, Covid, Elevated D-dimer SIDE PERFORMED: Bilateral TECHNIQUE: The lower extremity deep venous system is examined utilizing real time linear array sonog dylan with graded compression, doppler sonography and color-flow sonography. VESSELS IMAGED: Common Femoral Vein Deep Femoral Vein Greater Saphenous Vein * Femoral Vein Popliteal Vein Small Saphenous Vein * Proximal Calf Veins (* superficial vessels) Right Leg: Positive for DVT, right popliteal vein Left Leg: Possible, non-occluding thrombus of indeterminant age within left popliteal vein IMPRESSION: 1. DVT right popliteal vein. 2. Nonoccluding thrombus left popliteal vein as discussed above.
--- NOTE | 2021-07-26 07:56 | P.CRDCN ---
History of Present Illness Consult date: 07/26/21 History of present illness: The patient presents with acute dyspnea. His symptoms started 3 days ago, worse on presentation with sharp chest pain. Prior to that he had what he describes as an upper respiratory infection. He was found to have evidence of pulmonary embolism on his CAT scan with multiple large pulmonary embolism in the lower lobe pulmonary arteries. There was no evidence of right heart strain. The patient has a prior history of pulmonary embolism, multiple episodes with the last one 10 years ago and a history of DVT. He was maintained on anticoa gulation initially Coumadin and subsequently Xarelto he stopped because of bleeding hemorrhoids. He has a prior history of IVC filter that was removed. Patient denies any history of cardiac disease, he denies any dizziness, palpitations or syncope. He has occasional peripheral edema. He is not very active physically. He denies any recent discomfort in the lower extremities or recent trauma. He has no history of hypertension, hyperlipidemia or diabetes. He smokes over a pack a day. He denies any alcohol abuse. He has chronic episodes of wheezing and cough related to his COPD. At a rate of [address]-T segment changes with T-wave inversion anteriorly. His duplex scan of the lower extremities showed evidence of right DVT in the right popliteal vein and nonocclusive thrombus of indeterminate age in the left popliteal vein. His troponin are mildly elevated at 0.318, 0.147, 0.075. His NT proBNP was 1750. Respiratory: The patient has a history of dyspnea on exertion, cough and wheezing as well as a history of COPD GI: No nausea, vomiting. No history of peptic ulcer disease. He has a history of hemorrhoids with prior bleeding. : No hematuria or dysuria. Nervous System: No stroke or seizure. Head: Normocephalic. Alert and oriented in no acute distress, obese Eyes: Sclerae nonicteric. Neck: Good carotid upstroke, no bruit, no jugular venous distention. Lungs: Clear to auscultation. Heart: Regular rate and rhythm, S1-S2, no S3, no murmur or rub. Abdomen: Soft nontender, positive bowel sounds no organomegaly. Extremities: No edema, intact distal pulses. Meli signs negative Impression: 1. Acute multiple pulmonary embolism, no evidence of right ventricular strain on computed tomography scan 2. [ Recent PE] 3. [ Prior history of pulmonary embolism, noncompliant with anticoagulation] 4. [ History of chronic tobacco use] 5. [ Mild troponin elevation, secondary secondary to the pulmonary embolism, no evidence of acute ischemia] Plan: 1. [ Continue IV heparin] 2. [ Obtain an echocardiogram with Doppler to evaluate right-sided pressure and see if he is a candidate for EKOS] 3. [ Pulmonary consultation] 4. [ Depending on the results testing initiate oral anticoagulation. I discussed with the patient and his the importance of compliance and the risk of recurrent pulmonary embolism] 5. [ According to the patient he underwent testing for hypercoagulable state in the past. Depending on his progress further recommendations will be made. Thank you for this consult we will follow with you.] Past Medical History Past Medical History: COPD Additional Past Medical History / Comment(s): Pt states history of blood clots in left leg and lung in 2016 History of Any Multi-Drug Resistant Organisms: None Reported Past Surgical History: No Surgical Hx Reported Past Psychological History: Depression Smoking Status: Current every day smoker Past Alcohol Use History: None Reported Past Drug Use History: None Reported Medications and Allergies Home Medications Medication Instructions Recorded Confirmed Type Albuterol Sulfate [Ventolin HFA] 2 puff INHALATION RT-Q6H PRN 07/25/21 07/25/21 History Ergocalciferol (Vitamin D2) 1,250 mcg PO MO 07/25/21 07/25/21 History [Drisdol (50,000 Iu)] Famotidine 40 mg PO BID PRN 07/25/21 07/25/21 History HYDROcodone/APAP 10-325MG [[place] 1 tab PO Q6HR PRN 07/25/21 07/25/21 History 10-325] Allergies Allergy/AdvReac Type Severity Reaction Status Date / Time No Known Allergies Allergy Verified 07/25/21 18:27 Physical Exam Vitals: Vital Signs Temp Pulse Pulse Resp BP BP Pulse Ox 07/26/21 04:00 97.9 F 84 18 141/90 94 L 07/26/21 02:00 90 20 07/25/21 23:30 98.8 F 90 20 157/100 92 L 07/25/21 23:01 105 H 18 145/93 95 07/25/21 20:55 106 H 07/25/21 20:30 106 H 18 98 02/01/22 19:43 22 07/25/21 18:27 100.6 F H 105 H 22 165/86 94 L Intake and Output 07/25/21 07/26/21 07/26/21 22:59 06:59 14:59 Intake Total 195 Balance 195 Intake: Intake, IV Titration 75 Amount Heparin Sod,Pork in 0.45% 75 NaCl 25,000 unit In 0.45 % NaCl 1 250ml.bag @ 13. 53 UNITS/KG/HR 23.014 mls /hr IV .[id number] [facility] Rx#: [id number] Oral 120 Other: # Voids 2 Weight 170.097 kg 170.097 kg Results 07/26/21 06:13 07/26/21 06:13 Cardiac Enzymes 07/25/21 07/25/21 07/26/21 Range/Units 20:39 20:39 02:08 AST 50 (17-59) U/L Troponin I 0.318 H* 0.147 H* (0.000-0.034) ng/mL 07/26/21 Range/Units 06:13 AST (17-59) U/L Troponin I 0.075 H* (0.000-0.034) ng/mL Coagulation 07/25/21 07/26/21 Range/Units 20:39 02:08 PT 9.6 (9.0-12.0) sec APTT 23.1 50.3 H (22.0-30.0) sec CBC 07/25/21 07/26/21 Range/Units 20:39 06:13 WBC 16.6 H 13.9 H (3.8-10.6) k/uL RBC 5.41 5.13 (4.30-5.90) m/uL Hgb 15.8 14.9 (13.0-17.5) gm/dL Hct 48.2 46.7 (39.0-53.0) % Plt Count 242 237 (150-450) k/uL Comprehensive Metabolic Panel 07/25/21 07/26/21 Range/Units 20:39 06:13 Sodium 141 140 (137-145) mmol/L Potassium 5.4 H 4.9 (3.5-5.1) mmol/L Chloride 108 H 107 (98-107) mmol/L Carbon Dioxide 23 26 (22-30) mmol/L BUN 17 17 (9-20) mg/dL Creatinine 0.85 0.83 (0.66-1.25) mg/dL Glucose 107 H 230 H (74-99) mg/dL Calcium 9.9 9.8 (8.4-10.2) mg/dL AST 50 (17-59) U/L ALT 43 (4-49) U/L Alkaline Phosphatase 83 (38-126) U/L Total Protein 8.4 H (6.3-8.2) g/dL Albumin 4.5 (3.5-5.0) g/dL Current Medications Generic Name Dose Route Start Last Admin Trade Name Freq PRN Reason Stop Dose Admin Heparin Sodium (Porcine) 0 unit 07/25/21 22:07 Heparin Sodium 1,000 Un/Ml (10ml Vl) IV PER PROTOCOL PRN Low PTT Protocol Hydromorphone HCl 1 mg 07/25/21 23:04 07/26/21 01:56 Hydromorphone 1 Mg/Ml 1 Ml Syringe IVP 1 mg Q3HR PRN Administration Severe Pain Heparin Sodium/Sodium Chloride 250 mls @ 23.014 mls/hr 07/25/21 22:15 07/25/21 22:23 25,000 unit/ Sodium Chloride IV 13.53 units/kg/hr .[id number] THONY 23.014 mls/hr Administration Protocol 13.53 UNITS/KG/HR Naloxone HCl 0.2 mg 07/25/21 23:04 Naloxone 0.4 Mg/Ml 1 Ml Vial IV Q2M PRN Opioid Reversal Intake and Output 07/25/21 07/26/21 07/26/21 22:59 06:59 14:59 Intake Total 195 Balance 195 Intake: Intake, IV Titration 75 Amount Heparin Sod,Pork in 0.45% 75 NaCl 25,000 unit In 0.45 % NaCl 1 250ml.bag @ 13. 53 UNITS/KG/HR 23.014 mls /hr IV .[id number] [facility] Rx#: [id number] Oral 120 Other: # Voids 2 Weight 170.097 kg 170.097 kg 07/26/21 06:13 07/26/21 06:13
[2021-07-26] MEDS: HEPARIN SOD,PORK IN 0.45% NACL 25,000 UNIT in 0.45% NACL 1 250ML.BAG IV SCH ×2 (11:14→20:51)
[2021-07-26] MEDS: DOCUSATE 100 MG CAP PO SCH (11:14)
--- NOTE | 2021-07-26 11:27 | P.HPIM ---
History of Present Illness Patient is a 41-year-old came in with the sharp chest pain, pleuritic in nature. Patient had a recent upper respiratory tract infection about the 5-7 days ago which is not Covid 19, along with multiple family members. Patient has history of DVT in the past initially was on Coumadin then on xarelto, had a hemorrhoidal bleed because of which patient received IVC filter and patient was subsequently resumed on Xarelto which has not been taking on regular basis because of its side effects he takes his medication on and off. Patient was short of breath when he came in and does smoke about a pack of cigarettes per day willing to quit patient had a CT of the chest which showed pulmonary embolism bilateral lower lobes without any evidence of right and was treated on the CAT scan but the troponin elevations of 0.318, 0.147, 0.075. Cardiology was consulted for possible EKOS, echocardiogram was ordered patient had a lot of Doppler of the right lower extremity which showed DVT in the popliteal vein. REVIEW OF SYSTEMS: CONSTITUTIONAL: No fever, no malaise, no fatigue. HEENT: No recent visual problems or hearing problems. Denied any sore throat. CARDIOVASCULAR: No chest pain, orthopnea, PND, no palpitations, no syncope. PULMONARY: No shortness of breath, no cough, no hemoptysis. GASTROINTESTINAL: No diarrhea, no nausea, no vomiting, no abdominal pain. NEUROLOGICAL: No headaches, no weakness, no numbness. HEMATOLOGICAL: Denies any bleeding or petechiae. GENITOURINARY: Denies any burning micturition, frequency, or urgency. MUSCULOSKELETAL/RHEUMATOLOGICAL: Denies any joint pain, swelling, or any muscle pain. ENDOCRINE: Denies any polyuria or polydipsia. The rest of the 14-point review of systems is negative. PHYSICAL EXAMINATION: GENERAL: The patient is alert and oriented x3, not in any acute distress. Well developed, well nourished. Obese HEENT: Pupils are round and equally reacting to light. EOMI. No scleral icterus. No conjunctival pallor. Normocephalic, atraumatic. No pharyngeal erythema. No thyromegaly. CARDIOVASCULAR: S1 and S2 present. No murmurs, rubs, or gallops. PULMONARY: Chest is clear to auscultation, no wheezing or crackles. ABDOMEN: Soft, nontender, nondistended, normoactive bowel sounds. No palpable organomegaly. MUSCULOSKELETAL: No joint swelling or deformity. EXTREMITIES: No cyanosis, clubbing, right lower extremity pedal edema NEUROLOGICAL: Gross neurological examination did not reveal any focal deficits. SKIN: No rashes. Assessment and plan -Acute pulmonary embolism: His factors include smoking, obesity, recent infection. Patient has not been ablated 3 since his recent upper respiratory infection. Patient is presently on IV heparin echo is being obtained to assess for right ventricular strain and need for thrombectomy. -Fever and tachycardia: Secondary to pulmonary embolism -History of PE and DVT in the past patient will need lifelong anticoagulation patient presently doesn't have IVC filter at this time. Patient will be transitioned to oral antibiotic correlation mostly Eliquis tomorrow or day after depending on his clinical course. -Nicotine use: Counseling was provided -Troponin elevation secondary to pulmonary embolism and possible right ventricular strain -COPD without any acute exacerbation Obesity: Dietary counseling was provided DVT prophylaxis: On IV heparin Past Medical History Past Medical History: COPD Additional Past Medical History / Comment(s): Pt states history of blood clots in left leg and lung in 2016 History of Any Multi-Drug Resistant Organisms: None Reported Past Surgical History: No Surgical Hx Reported Past Psychological History: Depression Smoking Status: Current every day smoker Past Alcohol Use History: None Reported Past Drug Use History: None Reported Medications and Allergies Home Medications Medication Instructions Recorded Confirmed Type Albuterol Sulfate [Ventolin HFA] 2 puff INHALATION RT-Q6H PRN 07/25/21 07/25/21 History Ergocalciferol (Vitamin D2) 1,250 mcg PO MO 07/25/21 07/25/21 History [Drisdol (50,000 Iu)] Famotidine 40 mg PO BID PRN 07/25/21 07/25/21 History HYDROcodone/APAP 10-325MG [[place] 1 tab PO Q6HR PRN 07/25/21 07/25/21 History 10-325] Allergies Allergy/AdvReac Type Severity Reaction Status Date / Time No Known Allergies Allergy Verified 07/25/21 18:27 Physical Exam Vitals: Vital Signs Temp Pulse Pulse Resp BP BP Pulse Ox 07/26/21 08:00 97.7 F 86 16 121/83 94 L 07/26/21 04:00 97.9 F 84 18 141/90 94 L 07/26/21 02:00 90 20 07/25/21 23:30 98.8 F 90 20 157/100 92 L 07/25/21 23:01 105 H 18 145/93 95 07/25/21 20:55 106 H 07/25/21 20:30 106 H 18 98 07/25/21 19:43 22 07/25/21 18:27 100.6 F H 105 H 22 165/86 94 L Intake and Output 07/25/21 07/26/21 07/26/21 22:59 06:59 14:59 Intake Total 195 250 Balance 195 250 Intake: Intake, IV Titration 75 250 Amount Heparin Sod,Pork in 0.45% 75 250 NaCl 25,000 unit In 0.45 % NaCl 1 250ml.bag @ 13. 53 UNITS/KG/HR 23.014 mls /hr IV .[id number] [facility] Rx#: [id number] Oral 120 Other: # Voids 2 2 Weight 170.097 kg 170.097 kg Results CBC & Chem 7: 07/26/21 06:13 07/26/21 06:13 Labs: Abnormal Lab Results - Last 24 Hours (Table) 07/25/21 07/25/21 07/25/21 Range/Units 20:39 20:39 20:39 WBC 16.6 H (3.8-10.6) k/uL Neutrophils # 10.8 H (1.3-7.7) k/uL APTT (22.0-30.0) sec Potassium 5.4 H (3.5-5.1) mmol/L Chloride 108 H (98-107) mmol/L Glucose 107 H (74-99) mg/dL Troponin I 0.318 H* (0.000-0.034) ng/mL Total Protein 8.4 H (6.3-8.2) g/dL 07/26/21 07/26/21 07/26/21 Range/Units 02:08 02:08 06:13 WBC 13.9 H (3.8-10.6) k/uL Neutrophils # 11.6 H (1.3-7.7) k/uL APTT 50.3 H (22.0-30.0) sec Potassium (3.5-5.1) mmol/L Chloride (98-107) mmol/L Glucose (74-99) mg/dL Troponin I 0.147 H* (0.000-0.034) ng/mL Total Protein (6.3-8.2) g/dL 07/26/21 07/26/21 Range/Units 06:13 06:13 WBC (3.8-10.6) k/uL Neutrophils # (1.3-7.7) k/uL APTT (22.0-30.0) sec Potassium (3.5-5.1) mmol/L Chloride (98-107) mmol/L Glucose 230 H (74-99) mg/dL Troponin I 0.075 H* (0.000-0.034) ng/mL Total Protein (6.3-8.2) g/dL Thrombosis Risk Factor Assmnt - Choose All That Apply Each Factor Represents 1 point: Age 41-60 years, Obesity (BMI >25), Swollen legs (current) Other Risk Factors: Yes Each Risk Factor Represents 3 Points: Family history of DVT/PE Other congenital or acquired thrombophilia - If yes, enter type in comment: No Thrombosis Risk Factor Assessment Total Risk Factor Score: 6 Thrombosis Risk Factor Assessment Level: High Risk
--- NOTE | 2021-07-26 14:27 | P.CNPUL ---
History of Present Illness Consult date: 07/26/21 Reason for consult: pulmonary embolism History of present illness: 41-year-old morbidly obese male patient, known history of COPD, obstructive sleep apnea previous history of DVT and pulmonary embolism. The patient states that his been off and to coagulation for the past 2 years. His initial DVT and pulmonary embolism was back in 2009. At that time the patient the left lower extremity DVT and a pulmonary embolism. He was placed on warfarin and he was asked to continue warfarin for a long period of time, lifelong treatment. He is hypercoagulable workup back then was nonrevealing. Subsequently, back in 2014, the patient had a hemorrhoidal bleed reportedly he was given an IVC filter. Ultimately the IVC filter was removed and the patient was given Xarelto which she discontinued approximately 2 years ago. He comes in to the hospital because of worsening shortness of breath. He also had some chest discomfort/pleurisy. No hemoptysis. Denied having any significant swelling in lower extremities above and beyond his baseline. His evaluation in emergency showed bilateral pulmonary embolism based on his CT angiogram. The patient had a also a heavy clot burden. Troponins were elevated at 0.318, 0.147 0.075 respectively 3. Doppler of the lower extremity showed a right lower extremity popliteal DVT, acute. The patient is currently on IV heparin. Cardiology has been consulted for the possibility of intra-arterial thrombolytic therapy/EKOS. Echocardiogram is still pending for now. Despite this, the patient remains hemodynamically stable. Pulse ox is 94% on room air oxygen. He is awake and alert. He is not having any labored breathing. He is morbidly obese with a BMI 50.9. As stated, he has a personal history of DVT or pulmonary embolism. No family history. No signs of any active bleeding for now. Call with limited testing is been negative. Influenza screen has been negative. Review of Systems Constitutional: Reports as per HPI, Reports fatigue, Reports weight gain Eyes: denies as per HPI, denies blurred vision, denies bulging eye, denies decreased vision, denies diplopia, denies discharge, denies dry eye, denies irritation, denies itching, denies pain, denies photophobia, denies loss of peripheral vision, denies loss of vision, denies tunnel vision/blind spots Ears: deny: decreased hearing, ear discharge, earache, tinnitus Ears, nose, mouth and throat: Reports as per HPI Cardiovascular: Reports chest pain, Reports decreased exercise tolerance, Rep orts dyspnea on exertion Respiratory: Reports dyspnea, Reports sleep apnea Gastrointestinal: Reports as per HPI Genitourinary: Reports as per HPI Musculoskeletal: Reports as per HPI Musculoskeletal: bilateral: ankle swelling, absent: ankle pain, ankle stiffness Integumentary: Reports as per HPI Neurological: Reports as per HPI Psychiatric: Reports as per HPI Endocrine: Reports as per HPI Hematologic/Lymphatic: Reports as per HPI Allergic/Immunologic: Reports as per HPI Past Medical History Past Medical History: COPD Additional Past Medical History / Comment(s): SHAQ. Obesity. COPD. DVT and PE in the LLE in 2009. IVC filter placement and removal in 2014. Hemorrhoidal bleed and the patient is off anticoagulation for 2 years History of Any Multi-Drug Resistant Organisms: None Reported Past Surgical History: No Surgical Hx Reported Past Psychological History: Depression Smoking Status: Current every day smoker Past Alcohol Use History: None Reported Past Drug Use History: None Reported Medications and Allergies Home Medications Medication Instructions Recorded Confirmed Type Albuterol Sulfate [Ventolin HFA] 2 puff INHALATION RT-Q6H PRN 07/25/21 07/25/21 History Ergocalciferol (Vitamin D2) 1,250 mcg PO MO 07/25/21 07/25/21 History [Drisdol (50,000 Iu)] Famotidine 40 mg PO BID PRN 07/25/21 07/25/21 History HYDROcodone/APAP 10-325MG [[place]is[place] 1 tab PO Q6HR PRN 07/25/21 07/25/21 History 10-325] Allergies Allergy/AdvReac Type Severity Reaction Status Date / Time No Known Allergies Allergy Verified 07/25/21 18:27 Physical Exam Vitals: Vital Signs Temp Pulse Pulse Resp BP BP Pulse Ox 07/26/21 08:00 97.7 F 86 16 121/83 94 L 07/26/21 04:00 97.9 F 84 18 141/90 94 L 07/26/21 02:00 90 20 07/25/21 23:30 98.8 F 90 20 157/100 92 L 07/25/21 23:01 105 H 18 145/93 95 07/25/21 20:55 106 H 07/25/21 20:30 106 H 18 98 07/25/21 19:43 22 07/25/21 18:27 100.6 F H 105 H 22 165/86 94 L Intake and Output 07/25/21 07/26/21 07/26/21 22:59 06:59 14:59 Intake Total 195 250 Balance 195 250 Intake: Intake, IV Titration 75 250 Amount Heparin Sod,Pork in 0.45% 75 250 NaCl 25,000 unit In 0.45 % NaCl 1 250ml.bag @ 13. 53 UNITS/KG/HR 23.014 mls /hr IV .[id number] THONY Rx#: [id number] Oral 120 Other: # Voids 2 2 Weight 170.097 kg 170.097 kg GENERAL: The patient is alert and oriented x3, not in any acute distress. Well developed, well nourished. Obese Head exam was generally normal. There was no scleral icterus or corneal arcus. Mucous membranes were moist. HEENT: Pupils are round and equally reacting to light. EOMI. No scleral icterus. No conjunctival pallor. Normocephalic, atraumatic. No pharyngeal erythema. No thyromegaly. CARDIOVASCULAR: S1 and S2 present. No murmurs, rubs, or gallops. PULMONARY: Chest is clear to auscultation, no wheezing or crackles. ABDOMEN: Soft, nontender, nondistended, normoactive bowel sounds. No palpable organomegaly. MUSCULOSKELETAL: No joint swelling or deformity. EXTREMITIES: No cyanosis, clubbing, right lower extremity pedal edema NEUROLOGICAL: Gross neurological examination did not reveal any focal deficits. Examination of the skin revealed no evidence of significant rashes, suspicious appearing nevi or other concerning lesions. Neurologically, the patient is awake and alert and the patient does not have any focal neurological deficit. Cranial nerves are essentially intact. Results - Laboratory Findings CBC and BMP: 07/26/21 06:13 07/26/21 06:13 PT/INR, D-dimer PT 9.6 sec (9.0-12.0) 07/25/21 20:39 INR 0.9 (<1.2) 07/25/21 20:39 Abnormal lab findings: Abnormal Labs 07/25/21 07/25/21 07/25/21 20:39 20:39 20:39 WBC 16.6 H Neutrophils # 10.8 H APTT Potassium 5.4 H Chloride 108 H Glucose 107 H Troponin I 0.318 H* Total Protein 8.4 H 07/26/21 07/26/21 07/26/21 02:08 02:08 06:13 WBC 13.9 H Neutrophils # 11.6 H APTT 50.3 H Potassium Chloride Glucose Troponin I 0.147 H* Total Protein 07/26/21 07/26/21 06:13 06:13 WBC Neutrophils # APTT Potassium Chloride Glucose 230 H Troponin I 0.075 H* Total Protein - Diagnostic Findings Chest x-ray: image reviewed CT scan - chest: image reviewed Assessment and Plan Plan: 1 acute recurrent unprovoked pulmonary embolism. The patient has significant clot burden on the CT angiogram and the patient has bilateral pulmonary embolism. Troponins are elevated. No evidence of any RV strain pattern based on the CAT scan finding. Awaiting echocardiogram to evaluate for pulmonary hypertension and RV dysfunction. Hemodynamically stable. Oxidation within normal limits. 2 right lower extremity DVT, popliteal 3 previous history of DVT and pulmonary embolism back in 2009 and this involved the left lower extremity. 4 previous history of IVC filter insertion and subsequent removal. 5 previous history of hemorrhoidal bleed 6 COPD 7 obesity 8 obstructive sleep apnea Plan Patient has recurrent unprovoked pulmonary embolism. He started having issues with VTE is a very young age and obviously the patient will benefit from another hypercoagulable workup. At the same time, the patient will need long-term anticoagulation/lifelong anticoagulation. Meanwhile, during this current hospitalization, the patient will be kept on IV heparin. Awaiting echocardiogram. We'll discuss the case with cardiology as the patient may end up being a good candidate for EKOS specially if there is significant RV dysfunction pulmonary hypertension echocardiogram. Encourage weight loss. Utilize CPAP therapy from home. May need a surgical evaluation at a later stage to evaluate for hemorrhoids and its complications. We'll continue to follow.
[2021-07-26] MEDS: HYDROcodone/APAP 10-325MG 1 EACH TAB PO PRN (15:01)
[2021-07-26] MEDS: NICOTINE 21MG/24HR PATCH TRANSDERM SCH (15:11)
[2021-07-26] MEDS ORDERED: ONDANSETRON 4 MG/2 ML VIAL IVP PRN (18:18)
[2021-07-26] MEDS: polyethylene glycoL 3350 17 GM POWD.PACK PO SCH (20:19)
[2021-07-27] MEDS: HYDROmorphone 1 MG/ML 1 ML SYRINGE IVP PRN ×8 (01:26→23:20)
[2021-07-27] MEDS: HEPARIN SOD,PORK IN 0.45% NACL 25,000 UNIT in 0.45% NACL 1 250ML.BAG IV SCH ×3 (04:36→23:12)
[2021-07-27 04:53] LABS: HCT 41.3 % (39.0-53.0); HGB 13.5 gm/dL (13.0-17.5); Hypochromasia Slight; MCH 29.5 pg (25.0-35.0); MCHC 32.7 g/dL (31.0-37.0); MCV 90.3 fL (80.0-100.0); Mean Platelet Volume 7.3; Platelet Count 234 k/uL (150-450); RBC 4.57 m/uL (4.30-5.90); RDW 14.2 % (11.5-15.5); WBC 14.3 k/uL (3.8-10.6)
[2021-07-27 05:20] LABS: African American GFR (CKD) >90 (>60 ml/min/1.73 sqM); Anion Gap 6 mmol/L; Blood Urea Nitrogen 23 mg/dL (9-20); Calcium 9.2 mg/dL (8.4-10.2); Carbon Dioxide 23 mmol/L (22-30); Chloride 111 mmol/L (98-107); Glucose 138 mg/dL (74-99); Non-African American GFR(CKD) >90 (>60 ml/min/1.73 sqM); Potassium 4.2 mmol/L (3.5-5.1); Sodium 140 mmol/L (137-145)
[2021-07-27] MEDS: DOCUSATE 100 MG CAP PO SCH (08:07)
[2021-07-27] MEDS: NICOTINE 21MG/24HR PATCH TRANSDERM SCH (08:08)
--- NOTE | 2021-07-27 09:31 | ECHOF ---
Referral Reason:bilateral pe MEASUREMENTS -------- HEIGHT: 182.9 cm WEIGHT: 170.1 kg BP: RVIDd: 4.0 cm (< 3.3) IVSd: 1.2 cm (0.6 - 1.1) LVIDd: 5.0 cm (3.9 - 5.3) LVPWd: 1.5 cm (0.6 - 1.1) IVSs: 1.8 cm LVIDs: 2.8 cm LVPWs: 2.5 cm LA Diam: 3.7 cm (2.7 - 3.8) MV E Swapnil: 0.57 m/s MV A Swapnil: 0.95 m/s MV E/A Ratio: 0.60 RAP: 5.00 mmHg RVSP: 15.50 mmHg FINDINGS -------- Sinus rhythm. Morbid Obesity The left ventricular size is normal. There is mild concentric left ventricular hypertrophy. Overa ll left ventricular systolic function is low-normal with, an EF between 50 - 55 %. The right ventricle is severely enlarged. The right ventricular septal wall is flattened in diastol e and systole which is consistent with right ventricular volume and pressure overload. RV Strain w as not performed due to TDS imaging of RV lateral wall not visualized. The left atrial size is normal. The right atrial size is normal. The aortic valve was not well visualized. There is mild aortic valve sclerosis. There is no evide nce of aortic regurgitation. Mild mitral regurgitation is present. Mild tricuspid regurgitation present. Right ventricular systolic pressure is normal at < 35 mmHg. The pulmonic valve was not well visualized. Area of interest RV. Echo free space indicative of a pericardial fat pad. CONCLUSIONS -------- 1. Morbid Obesity 2. The left ventricular size is normal. 3. There is mild concentric left ventricular hypertrophy. 4. Overall left ventricular systolic function is low-normal with, an EF between 50 - 55 %. 5. The right ventricle is severely enlarged. 6. The right ventricular septal wall is flattened in diastole and systole which is consistent with r ight ventricular volume and pressure overload. 7. RV Strain was not performed due to TDS imaging of RV lateral wall not visualized. 8. The left atrial size is normal. 9. The right atrial size is normal. 10. The aortic valve was not well visualized. 11. There is mild aortic valve sclerosis. 12. Mild mitral regurgitation is present. 13. Mild tricuspid regurgitation present. 14. The pulmonic valve was not well visualized. 15. Area of interest RV. 16. Echo free space indicative of a pericardial fat pad. PILOT: Zadnra Leonardo RDCS
--- NOTE | 2021-07-27 11:52 | P.PN ---
Subjective Progress Note Date: 07/27/21 HISTORY OF PRESENT ILLNESS: The patient presents with acute dyspnea. His symptoms started 3 days ago, worse on presentation with sharp chest pain. Prior to that he had what he describes as an upper respiratory infection. He was found to have evidence of pulmonary embolism on his CAT scan with multiple large pulmonary embolism in the lower lobe pulmonary arteries. There was no evidence of right heart strain. The patient has a prior history of pulmonary embolism, multiple episodes with the last one 10 years ago and a history of DVT. He was maintained on anticoagulation initially Coumadin and subsequently Xarelto he stopped because of bleeding hemorrhoids. He has a prior history of IVC filter that was removed. Patient denies any history of cardiac disease, he denies any dizziness, palpitations or syncope. He has occasional peripheral edema. He is not very active physically. He denies any recent discomfort in the lower extremities or recent trauma. He has no history of hypertension, hyperlipidemia or diabetes. He smokes over a pack a day. He denies any alcohol abuse. He has chronic episodes of wheezing and cough related to his COPD. At a rate of [address]-T segment changes with T-wave inversion anteriorly. His duplex scan of the lower extremities showed evidence of right DVT in the right popliteal vein and nonocclusive thrombus of indeterminate age in the left popliteal vein. His troponin are mildly elevated at 0.318, 0.147, 0.075. His NT proBNP was 1750. 07/27/2021 Patient examined this morning at the bedside. The patient reports shortness of breath, worse when he is up ambulating to the bathroom. He reports some chest discomfort with deep inspiration. Otherwise denies chest pain. He remains on IV heparin. Echocardiogram completed reveals ejection fraction 50-55%, right ventricle severely enlarged,, mild mitral regurgitation, mild tricuspid regurgitation, with RVSP less than 35 mmHg. PHYSICAL EXAM: VITAL SIGNS: Reviewed. GENERAL: Well-developed in no acute distress. NECK: Supple. No JVD or thyromegaly LUNGS: Respirations even and unlabored. Lungs essentially clear to auscultation bilaterally. HEART: Regular rate and rhythm. S1 and S2 heard. EXTREMITIES: Normal range of motion. No clubbing or cyanosis. Peripheral pulses intact. No lower extremity edema ASSESSMENT: Acute multiple pulmonary emboli Mild troponin elevation, secondary to pulmonary embolism, no evidence of acute ischemia Right lower extremity DVT History of PE/DVT, noncompliant with anticoagulation History of hemorrhoids with bleeding PLAN: Patient has no RV strain on CT scan Echo reveals enlarged RV but RVSP of less than 35mmHG Patient reports he had an echo done at the past at [facility]. We will obtain records from there to see if RV enlargement is new or was present on previous echo. Patient may have chronically enlarged RV from prior pulmonary emboli. If RV enlargement is new, will consider EKOS Continue IV heparin at this time Further recommendations pending patient course Nurse practitioner note has been reviewed by physician. Signing provider agrees with the documented findings, assessment, and plan of care. Objective - Vital Signs Vital signs: Vital Signs Temp 98.2 F 07/27/21 11:24 Pulse 97 07/27/21 11:24 Resp 18 07/27/21 11:24 BP 118/67 07/27/21 11:24 Pulse Ox 99 07/27/21 11:24 Intake & Output 07/26/21 07/27/21 07/27/21 18:59 06:59 18:59 Intake Total 1950 970.000 200.278 Output Total 450 Balance 1950 970.000 -249.722 Intake: Intake, IV Titration 1150 250.000 200.278 Amount Heparin Sod,Pork in 0.45% 250 250.000 200.278 NaCl 25,000 unit In 0.45 % NaCl 1 250ml.bag @ 13. 53 UNITS/KG/HR 23.014 mls /hr IV .[id number] THONY Rx#: [id number] Sodium Chloride 0.9% 1, 800 000 ml @ 999 mls/hr IV . Q1H1M STA Rx#:[id number] cefTRIAXone 1 gm In 100 Sodium Chloride 0.9% 50 ml @ 100 mls/hr IVPB ONCE STA Rx#:[id number] Oral 800 720 Output: Urine 450 Other: # Voids 2 3 - Labs CBC & Chem 7: 07/27/21 04:34 07/27/21 04:32 Labs: Abnormal Lab Results - Last 24 Hours (Table) 07/26/21 07/27/21 07/27/21 Range/Units 19:41 04:29 04:32 WBC (3.8-10.6) k/uL APTT 30.3 H 49.7 H (22.0-30.0) sec Chloride 111 H (98-107) mmol/L BUN 23 H (9-20) mg/dL Glucose 138 H (74-99) mg/dL 07/27/21 Range/Units 04:34 WBC 14.3 H (3.8-10.6) k/uL APTT (22.0-30.0) sec Chloride (98-107) mmol/L BUN (9-20) mg/dL Glucose (74-99) mg/dL
--- NOTE | 2021-07-27 12:02 | P.PN ---
Subjective Progress Note Date: 07/27/21 Patient is a 41-year-old came in with the sharp chest pain, pleuritic in nature. Patient had a recent upper respiratory tract infection about the 5-7 days ago which is not Covid 19, along with multiple family members. Patient has history of DVT in the past initially was on Coumadin then on xarelto, had a hemorrhoidal bleed because of which patient received IVC filter and patient was subsequently resumed on Xarelto which has not been taking on regular basis because of its side effects he takes his medication on and off. Patient was short of breath when he came in and does smoke about a pack of cigarettes per day willing to quit patient had a CT of the chest which showed pulmonary embolism bilateral lower lobes without any evidence of right and was treated on the CAT scan but the troponin elevations of 0.318, 0.147, 0.075. Cardiology was consulted for possible EKOS, echocardiogram was ordered patient had a lot of Doppler of the right lower extremity which showed DVT in the popliteal vein. 07/27/2021 Patient evaluated today sitting up in the chair with his significant other at the bedside. Continues to complain of shortness of breath mildly at rest and worse with exertion. He is on room air saturation 99% at rest, blood pressure 118/67, heart rate 97, afebrile. Echocardiogram shows an EF of 50-55% with mild concentric left ventricular hypertrophy, right ventricle severely enlarged right ventricle septal wall is flattened with diastole and systole which is consistent for ventricular volume pressure overload, RV strain was not performed. Also, mild aortic valve sclerosis, mitral regurgitation and mild tricuspid regurgitation. Cardiology obtaining previous echo from [facility] for comparison. Patient can use oxygen as needed when ambulating if becoming hypoxic. WBC today 14.3. ROS Constitutional: Denied any fatigue denied any fever. Cardio vascular: Denies chest pain, reports tightness with ambulation Gastrointestinal denied any nausea vomiting Pulmonary: Denies cough, reports shortness of breath and rest and with exertion Neurologic denied any new focal deficits All inpatient medications were reviewed and appropriate changes in these medications as dictated in the interval history and assessment and plan. PHYSICAL EXAMINATION: GENERAL: The patient is alert and oriented x3, not in any acute distress. Well developed, well nourished. Obese HEENT: Pupils are round and equally reacting to light. EOMI. No scleral icterus. No conjunctival pallor. Normocephalic, atraumatic. No pharyngeal erythema. No thyromegaly. CARDIOVASCULAR: S1 and S2 present. No murmurs, rubs, or gallops. PULMONARY: Chest is clear to auscultation, no wheezing or crackles. ABDOMEN: Soft, nontender, nondistended, normoactive bowel sounds. No palpable organomegaly. MUSCULOSKELETAL: No joint swelling or deformity. EXTREMITIES: No cyanosis, clubbing, right lower extremity pedal edema NEUROLOGICAL: Gross neurological examination did not reveal any focal deficits. SKIN: No rashes. Assessment and plan -Acute pulmonary embolism: His factors include smoking, obesity, recent infect ion. Patient has not been ambulating since his recent upper respiratory infection. -Acute DVT right popliteal -Patient is presently on IV heparin, pending reports from [facility] to compare echo findings for decision regarding Ekos. -Fever and tachycardia: Secondary to pulmonary embolism, resolved. -History of PE and DVT in the past patient will need lifelong anticoagulation patient presently doesn't have IVC filter at this time. Patient will be transitioned to oral anticoagulation most likely eliquis on discharge. -Nicotine use: Counseling was provided -Troponin elevation secondary to pulmonary embolism and possible right ventricular strain -COPD without any acute exacerbation -Obesity: Dietary counseling was provided DVT prophylaxis: On IV heparin GI prophylaxis: On pepcid FULL CODE Objective - Vital Signs Vital signs: Vital Signs Temp 98.2 F 07/27/21 11:24 Pulse 97 07/27/21 11:24 Resp 18 07/27/21 11:24 BP 118/67 07/27/21 11:24 Pulse Ox 99 07/27/21 11:24 Intake & Output 07/26/21 07/27/21 07/27/21 18:59 06:59 18:59 Intake Total 1950 970.000 200.278 Output Total 450 Balance 1950 970.000 -249.722 Intake: Intake, IV Titration 1150 250.000 200.278 Amount Heparin Sod,Pork in 0.45% 250 250.000 200.278 NaCl 25,000 unit In 0.45 % NaCl 1 250ml.bag @ 13. 53 UNITS/KG/HR 23.014 mls /hr IV .[id number] THONY Rx#: [id number] Sodium Chloride 0.9% 1, 800 000 ml @ 999 mls/hr IV . Q1H1M STA Rx#:[id number] cefTRIAXone 1 gm In 100 Sodium Chloride 0.9% 50 ml @ 100 mls/hr IVPB ONCE STA Rx#:[id number] Oral 800 720 Output: Urine 450 Other: # Voids 2 3 - Labs CBC & Chem 7: 07/27/21 04:34 07/27/21 04:32 Labs: Abnormal Lab Results - Last 24 Hours (Table) 07/26/21 07/27/21 07/27/21 Range/Units 19:41 04:29 04:32 WBC (3.8-10.6) k/uL APTT 30.3 H 49.7 H (22.0-30.0) sec Chloride 111 H (98-107) mmol/L BUN 23 H (9-20) mg/dL Glucose 138 H (74-99) mg/dL 07/27/21 Range/Units 04:34 WBC 14.3 H (3.8-10.6) k/uL APTT (22.0-30.0) sec Chloride (98-107) mmol/L BUN (9-20) mg/dL Glucose (74-99) mg/dL Assessment and Plan Time with Patient: Greater than 30
--- NOTE | 2021-07-27 14:01 | P.PN ---
Subjective Progress Note Date: 07/27/21 On today's evaluation of 07/27/2021, the patient is still having some vague chest discomfort and some ongoing exertional dyspnea. Nevertheless, no hemodynamic instability. No tachycardia. No hypotension. No hypoxemia and the patient is currently on room air oxygen. Echocardiogram was done and showed LV hypertrophy, RV was dilated, no significant pulmonary hypertension was noted and there was no evidence of any RV strain pattern according to the stallion manager. There was mild aortic valve sclerosis, mild mitral regurgitation and tricuspid regurgitation. Patient is currently on IV heparin. The patient is going to be switched to antipronation orally with Eliquis. No bleeding complications. The patient also has a right lower extremity popliteal DVT. On today's blood work, the white cell count is at 14.3 with a hemoglobin of 15.5. Patient has a PTT of 49.7. Rest of the carotids are all within normal limits. Room air pulse oximetries 99%. Objective - Vital Signs Vital signs: Vital Signs Temp 98.2 F 07/27/21 11:24 Pulse 97 07/27/21 11:24 Resp 18 07/27/21 11:24 BP 118/67 07/27/21 11:24 Pulse Ox 99 07/27/21 11:24 Intake & Output 07/26/21 07/27/21 07/27/21 18:59 06:59 18:59 Intake Total 1950 970.000 200.278 Output Total 450 Balance 1950 970.000 -249.722 Intake: Intake, IV Titration 1150 250.000 200.278 Amount Heparin Sod,Pork in 0.45% 250 250.000 200.278 NaCl 25,000 unit In 0.45 % NaCl 1 250ml.bag @ 13. 53 UNITS/KG/HR 23.014 mls /hr IV .[id number] [facility] Rx#: [id number] Sodium Chloride 0.9% 1, 800 000 ml @ 999 mls/hr IV . Q1H1M [facility] Rx#:[id number] cefTRIAXone 1 gm In 100 Sodium Chloride 0.9% 50 ml @ 100 mls/hr IVPB ONCE [facility] Rx#:[id number] Oral 800 720 Output: Urine 450 Other: # Voids 2 3 - Exam GENERAL: The patient is alert and oriented x3, not in any acute distress. Well developed, well nourished. Obese, breathing is nonlabored and the patient is not having an intestinal distress. No use of excessive muscle breathing. No tachypnea. Room air pulse ox 99%. Patient is obesity BMI 50.9. HEENT: Pupils are round and equally reacting to light. EOMI. No scleral icterus. No conjunctival pallor. Normocephalic, atraumatic. No pharyngeal erythema. No thyromegaly. CARDIOVASCULAR: S1 and S2 present. No murmurs, rubs, or gallops. PULMONARY: Chest is clear to auscultation, no wheezing or crackles. ABDOMEN: Soft, nontender, nondistended, normoactive bowel sounds. No palpable organomegaly. MUSCULOSKELETAL: No joint swelling or deformity. EXTREMITIES: No cyanosis, clubbing, right lower extremity pedal edema NEUROLOGICAL: Gross neurological examination did not reveal any focal deficits. SKIN: No rashes. - Labs CBC & Chem 7: 07/27/21 04:34 07/27/21 04:32 Labs: Abnormal Lab Results - Last 24 Hours (Table) 07/26/21 07/27/21 07/27/21 Range/Units 19:41 04:29 04:32 WBC (3.8-10.6) k/uL APTT 30.3 H 49.7 H (22.0-30.0) sec Chloride 111 H (98-107) mmol/L BUN 23 H (9-20) mg/dL Glucose 138 H (74-99) mg/dL 07/27/21 Range/Units 04:34 WBC 14.3 H (3.8-10.6) k/uL APTT (22.0-30.0) sec Chloride (98-107) mmol/L BUN (9-20) mg/dL Glucose (74-99) mg/dL Assessment and Plan Plan: 1 acute recurrent unprovoked pulmonary embolism. The patient has significant clot burden on the CT angiogram and the patient has bilateral pulmonary embolism. Troponins are elevated. No evidence of any RV strain pattern based on the CAT scan finding. 2-D echocardiogram was completed and the patient was found to have RV dilatation without any significant pulmonary hypertension or RV strain pattern. Based on the cardiology's opinion, this is likely chronic and not related to pulmonary embolism. The patient is currently on room air oxygen. The patient is hemodynamically stable. Oxygenation is normal and the patient's pulse ox is around 99% on room air oxygen at rest. The patient remains on IV heparin. 2 right lower extremity DVT, popliteal 3 previous history of DVT and pulmonary embolism back in 2009 and this involved the left lower extremity. 4 previous history of IVC filter insertion and subsequent removal. 5 previous history of hemorrhoidal bleed 6 COPD 7 obesity 8 obstructive sleep apnea Plan Switch this patient to Eliquis 10 mg by mouth twice a day and this continued IV heparin Not a candidate for EKOS Monitor this patient for another 24 hours. Continue to ambulate. Monitor oxygenation. Some limited exertional dyspnea is still expected as the patient has a new onset pulmonary embolism. Monitor pulmonary hypertension outpatient basis. We'll need to be rechecked on sleep breathing disorder and sleep apnea make sure the patient is been effectively treated. Watch for signs of bleeding. We'll continue to follow.
[2021-07-27] MEDS: polyethylene glycoL 3350 17 GM POWD.PACK PO SCH (20:49)
[2021-07-27] MEDS ORDERED: APIXABAN 5 MG TAB PO SCH (21:00)
[2021-07-28] MEDS: HYDROmorphone 1 MG/ML 1 ML SYRINGE IVP PRN ×7 (04:18→23:59)
[2021-07-28] MEDS: HEPARIN SOD,PORK IN 0.45% NACL 25,000 UNIT in 0.45% NACL 1 250ML.BAG IV SCH (08:11)
[2021-07-28] MEDS: DOCUSATE 100 MG CAP PO SCH (08:13)
[2021-07-28] MEDS: FAMOTIDINE 20 MG TAB PO SCH (08:13)
[2021-07-28] MEDS: NICOTINE 21MG/24HR PATCH TRANSDERM SCH (08:19)
[2021-07-28] MEDS ORDERED: HEPARIN SODIUM 1,000 UN/ML (10ML VL) IV PRN ×2 (08:23→14:00)
[2021-07-28] MEDS: SODIUM CHLORIDE 0.9% 1,000 ML IV SCH (09:13)
[2021-07-28] MEDS ORDERED: ALTEPLASE 10 MG in SODIUM CHLORIDE 0.9% 100 ML IV ONE ×2 (09:45→12:31)
--- NOTE | 2021-07-28 10:20 | P.PN ---
Subjective Progress Note Date: 07/28/21 PROGRESS NOTE The patient is a 41-year-old male who presented with symptoms of progressive dyspnea and chest discomfort, was diagnosed with bilateral pulmonary embolism. His computed tomography scan showed no RV strain but there was significant dilatation of his RV on the echocardiogram with severe hypokinesis. The study was suboptimal and no good measurement of the pulmonary pressure couldn't be obtained. I obtained a report of an echocardiogram done in 2019 at [facility] that showed a normal right-sided function and size. Today he continues to have dyspnea on exertion and some respirophasic chest pain. He is in sinus mechanism without any dizziness or palpitations. He continues to be on IV heparin. PHYSICAL EXAMINATION: Blood pressure [111/69] heart rate [88] LUNGS: [Scattered wheezes] HEART: [Regular rate and rhythm, S1, S2. No S3. No systolic murmur] ABDOMEN: [Soft, nontender, no organomegaly, obese] EXTREMETIES: [No edema] IMPRESSION: 1. [ Bilateral PE with dilatation of the right ventricle, new.] 2. [ Acute DVT] 3. [ Prior history of recurrent pulmonary embolism and DVT, not anticoagulated on presentation] 4. [ History of chronic tobacco use] PLAN: I discussed with the patient and his family the option to proceed with EKOS in view of the multiple PE and the significant dilatation of the RV. The risks and the complications were discussed with the patient. He is in agreement to proceed. Depending on his progress further recommendations will be made. Objective - Vital Signs Vital signs: Vital Signs Temp 98.3 F 07/28/21 04:00 Pulse 88 07/28/21 04:00 Resp 20 07/28/21 04:00 BP 111/69 07/28/21 04:00 Pulse Ox 96 07/28/21 04:00 Intake & Output 07/27/21 07/28/21 07/28/21 18:59 06:59 18:59 Intake Total 320.278 342 263.915 Output Total 450 Balance -129.722 342 263.915 Intake: IV 92 Heparin Sod,Pork in 0.45% 92 NaCl 25,000 unit In 0.45 % NaCl 1 250ml.bag @ 13. 53 UNITS/KG/HR 23.014 mls /hr IV .[id number] [facility] Rx#: [id number] Intake, IV Titration 200.278 250 263.915 Amount Heparin Sod,Pork in 0.45% 200.278 250 263.915 NaCl 25,000 unit In 0.45 % NaCl 1 250ml.bag @ 13. 53 UNITS/KG/HR 23.014 mls /hr IV .[id number] [facility] Rx#: [id number] Oral 120 Output: Urine 450 Other: # Voids 3 2 - Labs CBC & Chem 7: 07/27/21 04:34 07/27/21 04:32 Labs: Abnormal Lab Results - Last 24 Hours (Table) 07/28/21 Range/Units 07:20 APTT 39.8 H (22.0-30.0) sec
[2021-07-28 10:21] LABS: Basophils # (A) 0.1 k/uL (0-0.2); Basophils % (A) 0 %; Eosinophils # (A) 0.4 k/uL (0-0.7); Eosinophils % (A) 4 %; HCT 42.6 % (39.0-53.0); HGB 13.8 gm/dL (13.0-17.5); Hypochromasia Slight; Lymphocytes # (A) 4.3 k/uL (1.0-4.8); Lymphocytes % (A) 36 %; MCH 29.7 pg (25.0-35.0); MCHC 32.4 g/dL (31.0-37.0); MCV 91.7 fL (80.0-100.0); Mean Platelet Volume 7.5; Monocytes # (A) 0.6 k/uL (0-1.0); Monocytes % (A) 5 %; Neutrophils # (A) 6.4 k/uL (1.3-7.7); Neutrophils % (A) 54 %; Platelet Count 228 k/uL (150-450); RBC 4.65 m/uL (4.30-5.90); RDW 14.4 % (11.5-15.5)
[2021-07-28] MEDS: HYDROcodone/APAP 10-325MG 1 EACH TAB PO PRN ×3 (10:23→23:30)
[2021-07-28 10:29] LABS: African American GFR (CKD) >90 (>60 ml/min/1.73 sqM); Anion Gap 4 mmol/L; Blood Urea Nitrogen 24 mg/dL (9-20); Calcium 9.3 mg/dL (8.4-10.2); Carbon Dioxide 25 mmol/L (22-30); Chloride 110 mmol/L (98-107); Glucose 97 mg/dL (74-99); Non-African American GFR(CKD) >90 (>60 ml/min/1.73 sqM); Potassium 4.5 mmol/L (3.5-5.1); Sodium 139 mmol/L (137-145)
[2021-07-28 11:03] LABS: Prothrombin Time 10.6 sec (9.0-12.0)
[2021-07-28] MEDS ORDERED: HEPARIN SOD,PORK IN 0.45% NACL 25,000 UNIT in 0.45% NACL 1 250ML.BAG IV SCH ×2 (12:45)
[2021-07-28] MEDS ORDERED: SODIUM CHLORIDE 0.9% 1,000 ML IV SCH ×4 (12:45)
--- NOTE | 2021-07-28 13:06 | P.PN ---
Subjective Progress Note Date: 07/28/21 Patient is a 41-year-old came in with the sharp chest pain, pleuritic in nature. Patient had a recent upper respiratory tract infection about the 5-7 days ago which is not Covid 19, along with multiple family members. Patient has history of DVT in the past initially was on Coumadin then on xarelto, had a hemorrhoidal bleed because of which patient received IVC filter and patient was subsequently resumed on Xarelto which has not been taking on regular basis because of its side effects he takes his medication on and off. Patient was short of breath when he came in and does smoke about a pack of cigarettes per day willing to quit patient had a CT of the chest which showed pulmonary embolism bilateral lower lobes without any evidence of right and was treated on the CAT scan but the troponin elevations of 0.318, 0.147, 0.075. Cardiology was consulted for possible EKOS, echocardiogram was ordered patient had a lot of Doppler of the right lower extremity which showed DVT in the popliteal vein. 07/27/2021 Patient evaluated today sitting up in the chair with his significant other at the bedside. Continues to complain of shortness of breath mildly at rest and worse with exertion. He is on room air saturation 99% at rest, blood pressure 118/67, heart rate 97, afebrile. Echocardiogram shows an EF of 50-55% with mild concentric left ventricular hypertrophy, right ventricle severely enlarged right ventricle septal wall is flattened with diastole and systole which is consistent for ventricular volume pressure overload, RV strain was not performed. Also, mild aortic valve sclerosis, mitral regurgitation and mild tricuspid regurgitation. Cardiology obtaining previous echo from [place] for comparison. Patient can use oxygen as needed when ambulating if becoming hypoxic. WBC today 14.3. 07/28/2021 Patient evaluated today sitting up in a chair with his significant other at the bedside. Patient did complain of a rough night and states that he was short of breath and overall not feeling well. He continues with dyspnea on exertion as well as some chest discomfort with deep inspiration and expiration, his face does appear to have a grayish hue to it. Did give patient a 2 L nasal cannula to wear for comfort and as needed with ambulation, during my examination patient's color improved in his face while on the nasal cannula. Plan today is for EKOs procedure, as reports were obtained from [place] and compared it appears right ventricular enlargement is new. He does have some scattered wheezing, we did order some updrafts for patient in light of his tobacco history and he does state he has COPD. vital signs today afebrile, heart rate 74, blood pressure 111/69 and he is 96% on room air and 96% on 2L nasal cannula. ROS Constitutional: Denied any fatigue denied any fever. Cardio vascular: Reports chest discomfort worsening with deep inspiration, expiration and with ambulation Gastrointestinal denied any nausea vomiting Pulmonary: Denies cough, reports shortness of breath and rest and with exertion Neurologic denied any new focal deficits All inpatient medications were reviewed and appropriate changes in these medications as dictated in the interval history and assessment and plan. PHYSICAL EXAMINATION: GENERAL: The patient is alert and oriented x3, Appears uncomortable, greyish hue to face. Well developed, well nourished. Obese HEENT: Pupils are round and equally reacting to light. EOMI. No scleral icterus. No conjunctival pallor. Normocephalic, atraumatic. No pharyngeal erythema. No thyromegaly. CARDIOVASCULAR: S1 and S2 present. No murmurs, rubs, or gallops. PULMONARY: Faint scattered inspiratory and expiratory wheezing noted. ABDOMEN: Soft, nontender, nondistended, normoactive bowel sounds. No palpable organomegaly. MUSCULOSKELETAL: No joint swelling or deformity. EXTREMITIES: No cyanosis, clubbing, biltateral lower extremity edema, right greater than left NEUROLOGICAL: Gross neurological examination did not reveal any focal deficits. SKIN: No rashes. Assessment and plan -Acute recurrent pulmonary embolism, unprovoked: His factors include smoking, obesity, recent infection. Patient has not been ambulating since his recent upper respiratory infection. He is currently maintaining saturation on room air, did provide 2L NC for comfort. -Acute DVT right popliteal with history chronic PE in the left -Patient is presently on IV heparin, pending EKOs procedure, will transition to eliquis -Fever and tachycardia: Secondary to pulmonary embolism, resolved. -History of PE and DVT in the past patient will need lifelong anticoagulation patient presently doesn't have IVC filter at this time. Patient will be transitioned to oral anticoagulation most likely eliquis on discharge. -Nicotine use: Counseling was provided -History of COPD, not in exacerbation, will order updrafts -Troponin elevation secondary to pulmonary embolism and possible right ventricular strain, evidence of dilated right ventricle on echo which is new from echo in 2019 completed at [facility]. -Obesity: Dietary counseling was provided DVT prophylaxis: On IV heparin GI prophylaxis: On pepcid FULL CODE Patient to proceed with EKOs procedure today and transfer to ICU post operative. Objective - Vital Signs Vital signs: Vital Signs Temp 98.4 F 07/28/21 10:42 Pulse 74 07/28/21 10:42 Resp 16 07/28/21 10:42 BP 111/69 07/28/21 04:00 Pulse Ox 96 07/28/21 10:42 Intake & Output 07/27/21 07/28/21 07/28/21 18:59 06:59 18:59 Intake Total 320.278 342 263.915 Output Total 450 Balance -129.722 342 263.915 Weight 167.8 kg Intake: IV 92 Heparin Sod,Pork in 0.45% 92 NaCl 25,000 unit In 0.45 % NaCl 1 250ml.bag @ 13. 53 UNITS/KG/HR 23.014 mls /hr IV .[id number] [facility] Rx#: [id number] Intake, IV Titration 200.278 250 263.915 Amount Heparin Sod,Pork in 0.45% 200.278 250 263.915 NaCl 25,000 unit In 0.45 % NaCl 1 250ml.bag @ 13. 53 UNITS/KG/HR 23.014 mls /hr IV .[id number] [facility] Rx#: [id number] Oral 120 Output: Urine 450 Other: # Voids 3 2 - Labs CBC & Chem 7: 07/28/21 07:20 07/28/21 07:20 Labs: Abnormal Lab Results - Last 24 Hours (Table) 07/28/21 07/28/21 07/28/21 Range/Units 07:20 07:20 07:20 WBC 12.0 H (3.8-10.6) k/uL APTT 39.8 H (22.0-30.0) sec Chloride 110 H (98-107) mmol/L BUN 24 H (9-20) mg/dL Assessment and Plan Time with Patient: Greater than 30
[2021-07-28] MEDS: MIDAZOLAM 2 MG/2 ML VIAL IV ONE ×2 (13:13→13:18)
[2021-07-28] MEDS ORDERED: LIDOCAINE 1% INJ 10MG/ML (20 ML MDV) SQ ONE ×4 (13:13→13:30)
[2021-07-28] MEDS ORDERED: fentaNYL (PF) 50 MCG/ML 2 ML AMP IV ONE (13:13)
[2021-07-28] MEDS ORDERED: IV FLUID CONTINUATION 300 ML IV ONE (13:28)
--- NOTE | 2021-07-28 13:46 | P.PN ---
Subjective Progress Note Date: 07/28/21 On today's evaluation of 07/27/2021, the patient is still having some vague chest discomfort and some ongoing exertional dyspnea. Nevertheless, no hemodynamic instability. No tachycardia. No hypotension. No hypoxemia and the patient is currently on room air oxygen. Echocardiogram was done and showed LV hypertrophy, RV was dilated, no significant pulmonary hypertension was noted and there was no evidence of any RV strain pattern according to the patient care specialist. There was mild aortic valve sclerosis, mild mitral regurgitation and tricuspid regurgitation. Patient is currently on IV heparin. The patient is going to be switched to antipronation orally with Eliquis. No bleeding complications. The patient also has a right lower extremity popliteal DVT. On today's blood work, the white cell count is at 14.3 with a hemoglobin of 15.5. Patient has a PTT of 49.7. Rest of the carotids are all within normal limits. Room air pulse oximetries 99%. 07/28/2021, seeing the patient for a follow-up. Patient is still short of breath on room air oxygen. I elected discussion with cardiology. Based on an comparison that was done with an earlier echocardiogram, the RV dilatation was significant and there was of a new onset. As such, it was thought that they pulmonary embolism was the culprit. Based on that, it was recommended to proceed with intra-arterial thrombolytic therapy with EKOS. The patient is doing well. Hemodynamically stable. Has not been started on Eliquis yet. He remains on IV heparin. The plan is to proceed with the treatment and the patient will be transferred to the ICU following the intra-arterial thrombolytic therapy. The patient otherwise is doing well. Hemoglobin stable at 13.8 with a rate of down to 228. The renal function is stable with a creatinine of 0.8 and a BUN of 24 with a sodium level of 139. Objective - Vital Signs Vital signs: Vital Signs Temp 98.4 F 07/28/21 10:42 Pulse 74 07/28/21 10:42 Resp 16 07/28/21 10:42 BP 111/69 07/28/21 04:00 Pulse Ox 96 07/28/21 10:42 Intake & Output 07/27/21 07/28/21 07/28/21 18:59 06:59 18:59 Intake Total 320.278 342 263.915 Output Total 450 Balance -129.722 342 263.915 Weight 167.8 kg Intake: IV 92 Heparin Sod,Pork in 0.45% 92 NaCl 25,000 unit In 0.45 % NaCl 1 250ml.bag @ 13. 53 UNITS/KG/HR 23.014 mls /hr IV .[id number] [facility] Rx#: [id number] Intake, IV Titration 200.278 250 263.915 Amount Heparin Sod,Pork in 0.45% 200.278 250 263.915 NaCl 25,000 unit In 0.45 % NaCl 1 250ml.bag @ 13. 53 UNITS/KG/HR 23.014 mls /hr IV .[id number] [facility] Rx#: [id number] Oral 120 Output: Urine 450 Other: # Voids 3 2 # Bowel Movements 0 - Exam GENERAL: The patient is alert and oriented x3, not in any acute distress. Well developed, well nourished. Obese, breathing is nonlabored and the patient is not having an intestinal distress. No use of excessive muscle breathing. No tachypnea. Room air pulse ox 99%. Patient is obesity BMI 50.9. HEENT: Pupils are round and equally reacting to light. EOMI. No scleral icterus. No conjunctival pallor. Normocephalic, atraumatic. No pharyngeal erythema. No thyromegaly. CARDIOVASCULAR: S1 and S2 present. No murmurs, rubs, or gallops. PULMONARY: Chest is clear to auscultation, no wheezing or crackles. ABDOMEN: Soft, nontender, nondistended, normoactive bowel sounds. No palpable organomegaly. MUSCULOSKELETAL: No joint swelling or deformity. EXTREMITIES: No cyanosis, clubbing, right lower extremity pedal edema NEUROLOGICAL: Gross neurological examination did not reveal any focal deficits. SKIN: No rashes. - Labs CBC & Chem 7: 07/28/21 07:20 07/28/21 07:20 Labs: Abnormal Lab Results - Last 24 Hours (Table) 07/28/21 07/28/21 07/28/21 Range/Units 07:20 07:20 07:20 WBC 12.0 H (3.8-10.6) k/uL APTT 39.8 H (22.0-30.0) sec Chloride 110 H (98-107) mmol/L BUN 24 H (9-20) mg/dL Assessment and Plan Plan: 1 acute recurrent unprovoked pulmonary embolism. The patient has significant clot burden on the CT angiogram and the patient has bilateral pulmonary embolism. Troponins are elevated. No evidence of any RV strain pattern based on the CAT scan finding. 2-D echocardiogram was completed and the patient was found to have RV dilatation without any significant pulmonary hypertension or RV strain pattern. This is of a new onset and was not present on previous echocardiogram that was done and [facility]. Based on comparison that was done by cardiology, the patient has obvious RV dysfunction/dilatation is considered to be related to the pulmonary embolism for that reason intra- arterial thrombolytic therapy will be used through EKOS 2 right lower extremity DVT, popliteal 3 previous history of DVT and pulmonary embolism back in 2009 and this involved the left lower extremity. 4 previous history of IVC filter insertion and subsequent removal. 5 previous history of hemorrhoidal bleed 6 COPD 7 obesity 8 obstructive sleep apnea Plan Continue IV heparin Proceed with EKOS Oxygenation is stable and the patient is currently on 2 L with a pulse ox of 9697%. Pulse ox remains above 90% on room air oxygen. Monitor hemodynamics Will likely come to the ICU post EKOS We'll continue to follow.
--- NOTE | 2021-07-28 14:08 | P.CARDCATH ---
Date of Procedure: 07/28/21 Description of Procedure: The patient is a 41-year-old male who presented with an acute bilateral pulmonary embolism and DVT. He was found to have enlarged right ventricle with decreased ejection fraction. That is new compared to an echocardiogram performed in 2019. In view of that recommendations were made regarding placement of EKOS catheter. The procedure as well as the risk and the complications were discussed with the patient and his family and they were informed standing and agreement. Procedure: The patient was brought to the laborer carpentry dock in the fasting state semi sedated state after receiving fentanyl and Versed, using Xylocaine anesthesia to 6-Moldovan sheath were introduced in the right femoral vein with ultrasound guidance. Following that using a 6-M[place]ovan [place] catheter and a 0.018 wire was first positioned in the right pulmonary artery, after removing the [place] catheter the EKOS catheter was introduced and positioned. Subsequently using the [place] catheter and the 0.018 wire the left pulmonary artery was cannulized, the [place] catheter was removed and the EKOS catheter was positioned. Subsequently both sheaths were sutured in place. Infusion was initiated. There was no immediate complications. The patient was returned to his room in stable condition. He will continue on the TPA infusion for 10 hours. Plan: The patient will be continued on the infusion of TPA for 10 hours. Following that and after removing the catheter oral anticoagulation will be initiated. The findings and the plan was discussed with the patient and his family. Duration of sedation 48 minutes.
[2021-07-28 14:43] LABS: Glucose,Whole Blood 81 mg/dL (75-99)
[2021-07-28] MEDS: IPRATROPIUM-ALBUTEROL 3 ML NEB INHALATION SCH ×2 (15:54→20:13)
[2021-07-28] MEDS: polyethylene glycoL 3350 17 GM POWD.PACK PO SCH (20:25)
[2021-07-29 02:47] LABS: Basophils # (A) 0.1 k/uL (0-0.2); Basophils % (A) 1 %; Eosinophils # (A) 0.4 k/uL (0-0.7); Eosinophils % (A) 3 %; HCT 40.4 % (39.0-53.0); HGB 13.1 gm/dL (13.0-17.5); Lymphocytes # (A) 2.7 k/uL (1.0-4.8); Lymphocytes % (A) 20 %; MCH 29.2 pg (25.0-35.0); MCHC 32.5 g/dL (31.0-37.0); MCV 89.8 fL (80.0-100.0); Mean Platelet Volume 7.1; Monocytes # (A) 0.9 k/uL (0-1.0); Monocytes % (A) 7 %; Neutrophils # (A) 9.5 k/uL (1.3-7.7); Neutrophils % (A) 69 %; Platelet Count 179 k/uL (150-450); RBC 4.49 m/uL (4.30-5.90); RDW 13.7 % (11.5-15.5); WBC 13.7 k/uL (3.8-10.6)
[2021-07-29 03:15] LABS: African American GFR (CKD) >90 (>60 ml/min/1.73 sqM); Anion Gap 6 mmol/L; Blood Urea Nitrogen 20 mg/dL (9-20); Calcium 8.9 mg/dL (8.4-10.2); Carbon Dioxide 26 mmol/L (22-30); Chloride 106 mmol/L (98-107); Glucose 111 mg/dL (74-99); Non-African American GFR(CKD) >90 (>60 ml/min/1.73 sqM); Potassium 4.5 mmol/L (3.5-5.1); Sodium 138 mmol/L (137-145)
[2021-07-29] MEDS: HYDROmorphone 1 MG/ML 1 ML SYRINGE IVP PRN ×3 (04:07→12:21)
--- NOTE | 2021-07-29 06:16 | XR ---
EXAMINATION TYPE: XR chest 1V portable DATE OF EXAM: 07/29/2021 CLINICAL HISTORY: Difficulty breathing progress study. TECHNIQUE: Single AP portable supine view of the chest is obtained. COMPARISON: CTA chest from 4 days earlier FINDINGS: Lungs remain clear without pleural effusion or pneumothorax seen bilaterally. Cardiac silh ouette size is stable and upper limits of normal. Surgical sutures overlying left suprahilar level no w present. Osseous structures are intact. IMPRESSION: New left suprahilar surgical changes. Lungs remain clear.
[2021-07-29] MEDS: HYDROcodone/APAP 10-325MG 1 EACH TAB PO PRN ×3 (06:49→20:23)
[2021-07-29] MEDS: IPRATROPIUM-ALBUTEROL 3 ML NEB INHALATION SCH ×3 (07:24→20:14)
[2021-07-29 07:47] LABS: Partial Thromboplastin Time 24.6 sec (22.0-30.0)
[2021-07-29] MEDS: FAMOTIDINE 20 MG TAB PO SCH (08:52)
[2021-07-29] MEDS: NICOTINE 21MG/24HR PATCH TRANSDERM SCH (08:52)
[2021-07-29] MEDS: DOCUSATE 100 MG CAP PO SCH (08:55)
--- NOTE | 2021-07-29 09:12 | P.PN ---
Subjective Progress Note Date: 07/29/21 PROGRESS NOTE The patient presented with bilateral pulmonary embolism and DVT. He had evidence of dilatation of the right ventricle and hypokinesis. He's feeling better this morning, he underwent EKOS procedure yesterday. He is breathing is better and he had no respirophasic chest pain. He denies any dizziness or palpitations. Hemodynamically he is stable without any evidence of malignant arrhythmia. PHYSICAL EXAMINATION: Blood pressure [130/80] heart rate [80] LUNGS: [Clear to auscultation] HEART: [Regular rate and rhythm, S1, S2. No S3. No systolic murmur] ABDOMEN: [Soft, nontender, no organomegaly, obese] EXTREMETIES: [No edema, catheter in the right groin] LAB: Hemoglobin 13.1, BUN 20, creatinine 0.74, fibrinogen 422 IMPRESSION: 1. [ Bilateral PE] 2. [ Acute DVT] 3. [ Prior history of PE and DVT] 4. [ History of chronic tobacco use] PLAN: 1. Remove catheters 2. Start oral anticoagulation 3. Increase physical activity 4. If stable probable discharge in 24-48 hours 5. The importance of compliance was discussed with the patient. Objective - Vital Signs Vital signs: Vital Signs Temp 98.4 F 07/29/21 04:00 Pulse 84 07/29/21 07:38 Resp 14 07/29/21 07:00 BP 130/80 07/29/21 07:00 Pulse Ox 97 07/29/21 07:00 Intake & Output 07/28/21 07/29/21 07/29/21 18:59 06:59 18:59 Intake Total 746.013 4129 228.541 Output Total 330 1410 130 Balance 399.915 582 98.541 Weight 167.8 kg 171.4 kg Intake: IV 266 1512 140 Alteplase 10 mg In Sodium 3 11 0 Chloride 0.9% 100 ml @ 1 MG/HR 10 mls/hr IV .Q10H [facility] Rx#:[id number] Alteplase 10 mg In Sodium 3 31 0 Chloride 0.9% 100 ml @ 1 MG/HR 10 mls/hr IV .Q10H [facility] Rx#:[id number] Protocol saline post-TPA 630 70 Sodium Chloride 0.9% 1, 105 420 35 000 ml @ 35 mls/hr IV . Q24H [facility] Rx#:[id number] Sodium Chloride 0.9% 1, 105 420 35 000 ml @ 35 mls/hr IV . Q24H [facility] Rx#:[id number] Intake, IV Titration 263.915 88.541 Amount Heparin Sod,Pork in 0.45% 263.915 NaCl 25,000 unit In 0.45 % NaCl 1 250ml.bag @ 13. 53 UNITS/KG/HR 23.014 mls /hr IV .[id number] [facility] Rx#: [id number] Heparin Sod,Pork in 0.45% 44.458 NaCl 25,000 unit In 0.45 % NaCl 1 250ml.bag @ 2.5 mls/hr IV .Q24H [facility] Rx#: [id number] Heparin Sod,Pork in 0.45% 44.083 NaCl 25,000 unit In 0.45 % NaCl 1 250ml.bag @ 2.5 mls/hr IV .Q24H [facility] Rx#: [id number] Oral 200 480 Output: Urine 330 1410 130 Other: Voiding Method Indwelling Catheter # Bowel Movements 0 - Labs CBC & Chem 7: 07/29/21 02:33 07/29/21 02:33 Labs: Abnormal Lab Results - Last 24 Hours (Table) 07/28/21 07/28/21 07/29/21 Range/Units 07:20 07:20 02:33 WBC 12.0 H 13.7 H (3.8-10.6) k/uL Neutrophils # 9.5 H (1.3-7.7) k/uL Chloride 110 H (98-107) mmol/L BUN 24 H (9-20) mg/dL Glucose (74-99) mg/dL 07/29/21 Range/Units 02:33 WBC (3.8-10.6) k/uL Neutrophils # (1.3-7.7) k/uL Chloride (98-107) mmol/L BUN (9-20) mg/dL Glucose 111 H (74-99) mg/dL
--- NOTE | 2021-07-29 09:13 | P.PN ---
Subjective Progress Note Date: 07/29/21 On today's evaluation of 07/27/2021, the patient is still having some vague chest discomfort and some ongoing exertional dyspnea. Nevertheless, no hemodynamic instability. No tachycardia. No hypotension. No hypoxemia and the patient is currently on room air oxygen. Echocardiogram was done and showed LV hypertrophy, RV was dilated, no significant pulmonary hypertension was noted and there was no evidence of any RV strain pattern according to the bead wire insulator. There was mild aortic valve sclerosis, mild mitral regurgitation and tricuspid regurgitation. Patient is currently on IV heparin. The patient is going to be switched to antipronation orally with Eliquis. No bleeding complications. The patient also has a right lower extremity popliteal DVT. On today's blood work, the white cell count is at 14.3 with a hemoglobin of 15.5. Patient has a PTT of 49.7. Rest of the carotids are all within normal limits. Room air pulse oximetries 99%. 07/28/2021, seeing the patient for a follow-up. Patient is still short of breath on room air oxygen. I elected discussion with cardiology. Based on an comparison that was done with an earlier echocardiogram, the RV dilatation was significant and there was of a new onset. As such, it was thought that they pulmonary embolism was the culprit. Based on that, it was recommended to proceed with intra-arterial thrombolytic therapy with EKOS. The patient is doing well. Hemodynamically stable. Has not been started on Eliquis yet. He remains on IV heparin. The plan is to proceed with the treatment and the patient will be transferred to the ICU following the intra-arterial thrombolytic therapy. The patient otherwise is doing well. Hemoglobin stable at 13.8 with a rate of down to 228. The renal function is stable with a creatinine of 0.8 and a BUN of 24 with a sodium level of 139. 2021, the patient completed EKOS and the thrombolytic therapy has been discontinued and the patient has completed the procedure without any complicat ion. Hemoglobin is stable at 13.1. He is started on oxygen at 3 L and this could be easily weaned off as the patient was not having any issues oxygenation prior to the procedure. White cell count at 13.7. Hemoglobin was 13.1. No respiratory distress at rest. The groin area is clean. Hemodynamically stable. Tolerating his diet. The plan is to remove the catheters on the patient on anticoagulation with Xarelto. Objective - Vital Signs Vital signs: Vital Signs Temp 98.4 F 07/29/21 04:00 Pulse 84 07/29/21 07:38 Resp 14 07/29/21 07:00 BP 130/80 07/29/21 07:00 Pulse Ox 97 07/29/21 07:00 Intake & Output 07/28/21 07/29/21 07/29/21 18:59 06:59 18:59 Intake Total 510.743 3245 228.541 Output Total 330 1410 130 Balance 399.915 582 98.541 Weight 167.8 kg 171.4 kg Intake: IV 266 1512 140 Alteplase 10 mg In Sodium 3 11 0 Chloride 0.9% 100 ml @ 1 MG/HR 10 mls/hr IV .Q10H [facility] Rx#:[id number] Alteplase 10 mg In Sodium 3 31 0 Chloride 0.9% 100 ml @ 1 MG/HR 10 mls/hr IV .Q10H [facility] Rx#:[id number] Protocol saline post-TPA 630 70 Sodium Chloride 0.9% 1, 105 420 35 000 ml @ 35 mls/hr IV . Q24H [facility] Rx#:[id number] Sodium Chloride 0.9% 1, 105 420 35 000 ml @ 35 mls/hr IV . Q24H [facility] Rx#:[id number] Intake, IV Titration 263.915 88.541 Amount Heparin Sod,Pork in 0.45% 263.915 NaCl 25,000 unit In 0.45 % NaCl 1 250ml.bag @ 13. 53 UNITS/KG/HR 23.014 mls /hr IV .[id number] [facility] Rx#: [id number] Heparin Sod,Pork in 0.45% 44.458 NaCl 25,000 unit In 0.45 % NaCl 1 250ml.bag @ 2.5 mls/hr IV .Q24H [facility] Rx#: [id number] Heparin Sod,Pork in 0.45% 44.083 NaCl 25,000 unit In 0.45 % NaCl 1 250ml.bag @ 2.5 mls/hr IV .Q24H [facility] Rx#: [id number] Oral 200 480 Output: Urine 330 1410 130 Other: Voiding Method Indwelling Catheter # Bowel Movements 0 - Exam GENERAL: The patient is alert and oriented x3, not in any acute distress. Well developed, well nourished. Obese, breathing is nonlabored and the patient is not having an intestinal distress. No use of excessive muscle breathing. No tachypnea. 3 L O2 by nasal cannula. Patient is obesity BMI 50.9. HEENT: Pupils are round and equally reacting to light. EOMI. No scleral icterus. No conjunctival pallor. Normocephalic, atraumatic. No pharyngeal erythema. No thyromegaly. CARDIOVASCULAR: S1 and S2 present. No murmurs, rubs, or gallops. PULMONARY: Chest is clear to auscultation, no wheezing or crackles. ABDOMEN: Soft, nontender, nondistended, normoactive bowel sounds. No palpable organomegaly. MUSCULOSKELETAL: No joint swelling or deformity. EXTREMITIES: No cyanosis, clubbing, right lower extremity pedal edema , and the patient has a sheath in his right groin there will be taken off today by cardiology. No evidence of any hematoma. No evidence of any bleeding. NEUROLOGICAL: Gross neurological examination did not reveal any focal deficits. SKIN: No rashes. - Labs CBC & Chem 7: 07/29/21 02:33 07/29/21 02:33 Labs: Abnormal Lab Results - Last 24 Hours (Table) 07/28/21 07/28/21 07/29/21 Range/Units 07:20 07:20 02:33 WBC 12.0 H 13.7 H (3.8-10.6) k/uL Neutrophils # 9.5 H (1.3-7.7) k/uL Chloride 110 H (98-107) mmol/L BUN 24 H (9-20) mg/dL Glucose (74-99) mg/dL 07/29/21 Range/Units 02:33 WBC (3.8-10.6) k/uL Neutrophils # (1.3-7.7) k/uL Chloride (98-107) mmol/L BUN (9-20) mg/dL Glucose 111 H (74-99) mg/dL Assessment and Plan Plan: 1 acute recurrent unprovoked pulmonary embolism. The patient has significant clot burden on the CT angiogram and the patient has bilateral pulmonary embolism. Troponins are elevated. No evidence of any RV strain pattern based on the CAT scan finding. 2-D echocardiogram was completed and the patient was found to have RV dilatation without any significant pulmonary hypertension or RV strain pattern. This is of a new onset and was not present on previous echocardiogram that was done and [facility]. Based on comparison that was done by cardiology, the patient has obvious RV dysfunction/dilatation is considered to be related to the pulmonary embolism for that reason intra-arter ial thrombolytic therapy EKOS was offered and was completed yesterday without any complications. The sheath and the catheters were removed today. The patient was started on long-term and to coagulation. Hemodynamically stable. Oxidation stable. Hemoglobin is stable. 2 right lower extremity DVT, popliteal 3 previous history of DVT and pulmonary embolism back in 2009 and this involved the left lower extremity. 4 previous history of IVC filter insertion and subsequent removal. 5 previous history of hemorrhoidal bleed 6 COPD 7 obesity 8 obstructive sleep apnea Plan Completed EKOS Start the patient anticoagulation with Xarelto 15 mg by mouth twice a day for 3 weeks and then change the dose to 20 mg by mouth daily Oxygenation is stable and the patient is currently on 01/24 and we are going to wean down the FiO2 as tolerated to maintain saturation above 90% Monitor hemodynamics Was transferred outside the intensive care unit today We'll continue to follow. Follow-up echocardiogram in few months time to evaluate RV size and function.
[2021-07-29] MEDS: SODIUM CHLORIDE 0.9% 1,000 ML IV SCH (10:39)
[2021-07-29] MEDS: RIVAROXABAN 15 MG TAB PO SCH ×2 (11:14→19:02)
[2021-07-29] MEDS ORDERED: HYDROmorphone 1 MG/ML 1 ML SYRINGE IVP PRN (12:41)
--- NOTE | 2021-07-29 12:43 | P.PN ---
Subjective Progress Note Date: 07/29/21 Patient is a 41-year-old came in with the sharp chest pain, pleuritic in nature. Patient had a recent upper respiratory tract infection about the 5-7 days ago which is not Covid 19, along with multiple family members. Patient has history of DVT in the past initially was on Coumadin then on xarelto, had a hemorrhoidal bleed because of which patient received IVC filter and patient was subsequently resumed on Xarelto which has not been taking on regular basis because of its side effects he takes his medication on and off. Patient was short of breath when he came in and does smoke about a pack of cigarettes per day willing to quit patient had a CT of the chest which showed pulmonary embolism bilateral lower lobes without any evidence of right and was treated on the CAT scan but the troponin elevations of 0.318, 0.147, 0.075. Cardiology was consulted for possible EKOS, echocardiogram was ordered patient had a lot of Doppler of the right lower extremity which showed DVT in the popliteal vein. 07/27/2021 Patient evaluated today sitting up in the chair with his significant other at the bedside. Continues to complain of shortness of breath mildly at rest and worse with exertion. He is on room air saturation 99% at rest, blood pressure 118/67, heart rate 97, afebrile. Echocardiogram shows an EF of 50-55% with mild concentric left ventricular hypertrophy, right ventricle severely enlarged right ventricle septal wall is flattened with diastole and systole which is consistent for ventricular volume pressure overload, RV strain was not performed. Also, mild aortic valve sclerosis, mitral regurgitation and mild tricuspid regurgitation. Cardiology obtaining previous echo from [place] for comparison. Patient can use oxygen as needed when ambulating if becoming hypoxic. WBC today 14.3. 07/28/2021 Patient evaluated today sitting up in a chair with his significant other at the bedside. Patient did complain of a rough night and states that he was short of breath and overall not feeling well. He continues with dyspnea on exertion as well as some chest discomfort with deep inspiration and expiration, his face does appear to have a grayish hue to it. Did give patient a 2 L nasal cannula to wear for comfort and as needed with ambulation, during my examination patient's color improved in his face while on the nasal cannula. Plan today is for EKOs procedure, as reports were obtained from [place] and compared it appears right ventricular enlargement is new. He does have some scattered wheezing, we did order some updrafts for patient in light of his tobacco history and he does state he has COPD. vital signs today afebrile, heart rate 74, blood pressure 111/69 and he is 96% on room air and 96% on 2L nasal cannula. 07/29/2021 Patient evaluated in the ICU on bedrest s/p EKOs procedure with [address] still in place. Stated he is tolerating the procedure well although did not get much sleep last night. Chest x-ray today shows new left suprahilar surgical changes, lungs remain clear. Labs available from today show a white count 13.7, sodium 138, potassium 4.5, chloride 106, CO2 26, BUN 20, creatinine 0.74, glucose 111. Patient did spike a temp of 101 last night, currently afebrile, heart rate 86, respirations 18, blood pressure 127/70, 92-93% on 2 L n kiarra cannula. Transitioned to Xarelto today. Being followed closely by cardiology and pulmonary/wagon person. Patient states discharge out of ICU today, will increase activity. ROS Constitutional: Denied any fatigue denied any fever. Cardio vascular: Denies chest pain, chest pressure, palpitations Gastrointestinal denied any nausea vomiting Pulmonary: Denies cough, chest discomfort with deep inspiration has improved from yesterday, denying shortness of breath at rest. Neurologic denied any new focal deficits All inpatient medications were reviewed and appropriate changes in these medications as dictated in the interval history and assessment and plan. PHYSICAL EXAMINATION: GENERAL: The patient is alert and oriented x3, not in acute distress, Well developed, well nourished. Obese HEENT: Pupils are round and equally reacting to light. EOMI. No scleral icterus. No conjunctival pallor. Normocephalic, atraumatic. No pharyngeal erythema. No thyromegaly. CARDIOVASCULAR: S1 and S2 present. No murmurs, rubs, or gallops. PULMONARY: Wheezing improved from yesterday, no crackles noted. ABDOMEN: Soft, nontender, nondistended, normoactive bowel sounds. No palpable organomegaly. MUSCULOSKELETAL: No joint swelling or deformity. EXTREMITIES: No cyanosis, clubbing, biltateral lower extremity edema, right greater than left NEUROLOGICAL: Gross neurological examination did not reveal any focal deficits. SKIN: No rashes. Assessment and plan -Acute recurrent pulmonary embolism without evidence for right heart strain, however RV dilation found on echocardiogram was new compared to previous echo: His risk factors include smoking, obesity, recent infection. Patient has not been ambulating since his recent upper respiratory infection. He is now evaluated in ICU S/P EKOS procedure for acute bilateral PE. He has been transitioned to Xarelto. -Acute DVT right popliteal with history chronic DVT in the left -Troponin elevation secondary to pulmonary embolism and RV dilation -Fever and tachycardia: Secondary to pulmonary embolism, resolved. -Leukocytosis, most likely reactive from PE and shallow respirations -History of PE and DVT in the past patient will need lifelong anticoagulation patient presently doesn't have IVC filter at this time, was removed in 2014. -Nicotine use: Counseling was provided will need ongoing support, nicotine patch offered -History of COPD, not in exacerbation -Obesity with obstructive sleep apnea DVT prophylaxis: Xarelto GI prophylaxis: On pepcid FULL CODE Plan Monitor vital signs Transfer out of the ICU Wean oxygen as tolerated, goal oxygen saturation >90% as recommended by pulmonary Pain management, will decrease dilaudid, encourage oral pain meds Objective - Vital Signs Vital signs: Vital Signs Temp 98.2 F 07/29/21 08:30 Pulse 86 07/29/21 10:30 Resp 25 H 07/29/21 10:30 BP 127/76 07/29/21 10:30 Pulse Ox 93 L 07/29/21 10:30 Intake & Output 07/28/21 07/29/21 07/29/21 18:59 06:59 18:59 Intake Total 743.976 9585 368.541 Output Total 330 1410 705 Balance 399.915 582 -336.459 Weight 167.8 kg 171.4 kg Intake: IV 266 1512 280 Alteplase 10 mg In Sodium 3 11 0 Chloride 0.9% 100 ml @ 1 MG/HR 10 mls/hr IV .Q10H [facility] Rx#:[id number] Alteplase 10 mg In Sodium 3 31 0 Chloride 0.9% 100 ml @ 1 MG/HR 10 mls/hr IV .Q10H [facility] Rx#:[id number] Protocol saline post-TPA 630 140 Sodium Chloride 0.9% 1, 105 420 70 000 ml @ 35 mls/hr IV . Q24H [facility] Rx#:[id number] Sodium Chloride 0.9% 1, 105 420 70 000 ml @ 35 mls/hr IV . Q24H [facility] Rx#:[id number] Intake, IV Titration 263.915 88.541 Amount Heparin Sod,Pork in 0.45% 263.915 NaCl 25,000 unit In 0.45 % NaCl 1 250ml.bag @ 13. 53 UNITS/KG/HR 23.014 mls /hr IV .[id number] [facility] Rx#: [id number] Heparin Sod,Pork in 0.45% 44.458 NaCl 25,000 unit In 0.45 % NaCl 1 250ml.bag @ 2.5 mls/hr IV .Q24H [facility] Rx#: [id number] Heparin Sod,Pork in 0.45% 44.083 NaCl 25,000 unit In 0.45 % NaCl 1 250ml.bag @ 2.5 mls/hr IV .Q24H [facility] Rx#: [id number] Oral 200 480 Output: Urine 330 1410 705 Other: Voiding Method Indwelling Catheter # Bowel Movements 0 - Labs CBC & Chem 7: 07/29/21 02:33 07/29/21 02:33 Labs: Abnormal Lab Results - Last 24 Hours (Table) 07/29/21 07/29/21 Range/Units 02:33 02:33 WBC 13.7 H (3.8-10.6) k/uL Neutrophils # 9.5 H (1.3-7.7) k/uL Glucose 111 H (74-99) mg/dL Assessment and Plan Time with Patient: Greater than 30
[2021-07-29] MEDS ORDERED: ATROPINE SULFATE 0.1 MG/ML 10ML SYRINGE ONE (16:05)
[2021-07-29] MEDS ORDERED: LORazepam 2 MG/ML INJ ONE (16:05)
[2021-07-29 16:13] LABS: Glucose,Whole Blood 137 mg/dL (75-99)
[2021-07-29] MEDS ORDERED: ADENOSINE 3 MG/ML 2 ML VIAL IVP ONE (16:20)
[2021-07-29] MEDS ORDERED: SODIUM CHLORIDE 0.9% 1,000 ML IV ONE (16:26)
[2021-07-29 16:33] LABS: Glucose,Whole Blood 179 mg/dL (75-99)
--- NOTE | 2021-07-29 18:29 | CT ---
EXAMINATION TYPE: CT brain wo con CT DLP: 1149.2 mGycm, Automated exposure control for dose reduction was used. DATE OF EXAM: 07/29/2021 6:14 PM COMPARISON: Prior CT Brain from 12/06/2020. CLINICAL INDICATION:Male, 41 years old with history of s/p ekos, anticoagulation, event of unresponsi ve, seizure TECHNIQUE: Brain: Multiple axial CT images of the brain were obtained without IV contrast. FINDINGS: Brain: Extra-axial spaces: No abnormal extra-axial fluid collections. Ventricular system: Within normal limits Cerebral parenchyma: No acute intraparenchymal hemorrhage or mass effect. The leonard-white junction is well differentiated. Cerebellum: Unremarkable. Mass effect: No evidence of midline shift. Intracranial vasculature: unremarkable Soft tissues: Normal. Calvarium/osseous structures: No depressed skull fracture. Paranasal sinuses and mastoid air cells: Clear. Visualized orbits: Orbital contents are intact. IMPRESSION: No acute intracranial process.
--- NOTE | 2021-07-29 18:44 | CT ---
EXAMINATION TYPE: CT angio chest DATE OF EXAM: 07/29/2021 6:14 PM COMPARISON: CTA chest 07/25/2021 HISTORY: f/u known bilateral PE's CT DLP: 1178.5 mGycm Automated exposure control for dose reduction was used. CONTRAST: CTA scan of the thorax is performed with IV Contrast, patient injected with 100 mL of Isovue 370, pul monary embolism protocol. . FINDINGS: There has been interval development of parenchymal consolidative opacity at the left base. There is n o pleural effusion. There is no evidence of a pulmonary mass. Heart size is normal. There is no peric ardial effusion. There has been interval development of a nonocclusive thrombus in the left main pulmonary artery that straddles the pulmonary artery bifurcation. There is redemonstration of multiple large filling defects in the distal main pulmonary arteries bila terally extending into the lower lobes. There is also involvement of the upper lobe pulmonary arterie s. The pulmonary artery is dilated measuring up to 4 cm. There is mild reflux of contrast into the IVC. Is mild bowing of the intraventricular septum to the left. Thoracic aorta is intact. There is no aneurysm or dissection. There is no evidence of pneumothorax. The thoracic spine is intact. Sternum is intact. Upper abdominal soft tissues are intact. IMPRESSION: 1. There has been interval development of a nonocclusive thrombus in the left main pulmonary artery that minimally straddles the pulmonary artery bifurcation. There is new evidence of mild right heart strain. There is redemonstration of multiple large filling defects in the distal main pulmonary arter ies bilaterally extending into the upper and lower lobes. There is new evidence of mild right heart s train. 2. There is interval development of left lower lobe pneumonia.
[2021-07-29] MEDS: polyethylene glycoL 3350 17 GM POWD.PACK PO SCH (20:20)
[2021-07-29] MEDS: CEFEPIME 2 GM in SODIUM CHLORIDE 0.9% 100 ML IVPB SCH (20:22)
[2021-07-29 20:44] LABS: African American GFR (CKD) >90 (>60 ml/min/1.73 sqM); Anion Gap 7 mmol/L; Blood Urea Nitrogen 19 mg/dL (9-20); Calcium 9.3 mg/dL (8.4-10.2); Carbon Dioxide 20 mmol/L (22-30); Chloride 111 mmol/L (98-107); Glucose 162 mg/dL (74-99); Non-African American GFR(CKD) >90 (>60 ml/min/1.73 sqM); Sodium 138 mmol/L (137-145)
[2021-07-29 21:32] LABS: Basophils % (A) 0 %; Eosinophils # (A) 0.1 k/uL (0-0.7); Eosinophils % (A) 1 %; HCT 45.4 % (39.0-53.0); Lymphocytes # (A) 1.5 k/uL (1.0-4.8); Lymphocytes % (A) 8 %; MCH 29.6 pg (25.0-35.0); MCHC 33.1 g/dL (31.0-37.0); MCV 89.3 fL (80.0-100.0); Mean Platelet Volume 8.5; Monocytes % (A) 5 %; Neutrophils # (A) 16.9 k/uL (1.3-7.7); Neutrophils % (A) 86 %; Platelet Count 167 k/uL (150-450); RBC 5.08 m/uL (4.30-5.90); RDW 14.1 % (11.5-15.5); WBC 19.8 k/uL (3.8-10.6)
[2021-07-29] MEDS ORDERED: IPRATROPIUM-ALBUTEROL 3 ML NEB INHALATION PRN (23:58)
[2021-07-30] MEDS: HYDROcodone/APAP 10-325MG 1 EACH TAB PO PRN ×4 (05:57→21:32)
--- NOTE | 2021-07-30 06:29 | XR ---
EXAMINATION TYPE: XR chest 1V portable DATE OF EXAM: 07/30/2021 CLINICAL HISTORY: Difficulty breathing progress study. Known pulmonary emboli. TECHNIQUE: Single AP portable upright view of the chest is obtained. COMPARISON: Chest x-ray and CTA chest from one day earlier FINDINGS: Lungs remain clear without pleural effusion or pneumothorax seen bilaterally. Cardiac silh ouette size is stable and mildly enlarged. Osseous structures are intact. IMPRESSION: Mild cardiomegaly without acute pulmonary infiltrate.
[2021-07-30] MEDS: RIVAROXABAN 15 MG TAB PO SCH ×2 (06:54→17:36)
[2021-07-30] MEDS: IPRATROPIUM-ALBUTEROL 3 ML NEB INHALATION SCH ×3 (07:54→20:06)
--- NOTE | 2021-07-30 09:24 | P.PN ---
Subjective Progress Note Date: 07/30/21 PROGRESS NOTE The patient is a 41-year-old male with a known history of pulmonary embolism and recurrent DVT in the past who presented with an acute DVT and PE, his echocardiogram showed a dilatation of the right ventricle. He underwent EKOS treatment on Saturday with removal of the catheter yesterday morning, in the afternoon after being on anticoagulation while ambulating he became acutely dyspneic, tachycardic had a bradycardia and a syncopal episode. He was treated with IV atropine. A repeat computed tomography scan of the chest showed an interval noninclusive thrombus of the left main pulmonary artery minimally straddled the pulmonary artery bifurcation. There was evidence of mild right heart strain. He's feeling well this morning, denies any chest discomfort, dizziness or palpitations. His breathing is better. He has no recollection of the event of yesterday. PHYSICAL EXAMINATION: Blood pressure 103/86 heart rate 84 LUNGS: [Clear to auscultation] HEART: [Regular rate and rhythm, S1, S2. No S3. No systolic murmur] ABDOMEN: [Soft, nontender, no organomegaly, obese] EXTREMETIES: [No edema right groin no hematoma] LAB: BUN and creatinine 19 and 0.72 , hemoglobin 15, troponin 0.369 IMPRESSION: 1. Acute pulmonary embolism was possible new embolism yesterday 2. DVT acute 3. Status post EKOS treatment 4. Prior History of noncompliance PLAN: 1. Consult vascular surgery for filter placement in view of the event yesterday. I discussed those findings with the patient and his family] 2. Continue anticoagulation] 3. Follow hemoglobin and renal functions 4. I discussed with the patient and his family the importance of compliance with anticoagulation and the risk of from further pulmonary embolism. Objective - Vital Signs Vital signs: Vital Signs Temp 98.2 F 07/30/21 08:00 Pulse 84 07/30/21 08:00 Resp 22 07/30/21 08:00 BP 103/86 07/30/21 08:00 Pulse Ox 97 07/30/21 08:00 Intake & Output 07/29/21 07/30/21 07/30/21 18:59 06:59 18:59 Intake Total 1608.541 740 Output Total 1130 700 0 Balance 478.541 40 0 Weight 169.8 kg Intake: IV 1280 260 Alteplase 10 mg In Sodium 0 Chloride 0.9% 100 ml @ 1 MG/HR 10 mls/hr IV .Q10H [facility] Rx#:[id number] Alteplase 10 mg In Sodium 0 Chloride 0.9% 100 ml @ 1 MG/HR 10 mls/hr IV .Q10H [facility] Rx#:[id number] Cefepime 2 gm In Sodium 100 Chloride 0.9% 100 ml @ 25 mls/hr IVPB Q12HR [facility] Rx #:[id number] Protocol saline post-TPA 140 Sodium Chloride 0.9% 1, 70 000 ml @ 35 mls/hr IV . Q24H [facility] Rx#:[id number] Sodium Chloride 0.9% 1, 70 000 ml @ 35 mls/hr IV . Q24H [facility] Rx#:[id number] Sodium Chloride 0.9% 1, 1000 160 000 ml @ 999 mls/hr IV . Q1H1M [facility] Rx#:[id number] Intake, IV Titration 88.541 Amount Heparin Sod,Pork in 0.45% 44.458 NaCl 25,000 unit In 0.45 % NaCl 1 250ml.bag @ 2.5 mls/hr IV .Q24H [facility] Rx#: [id number] Heparin Sod,Pork in 0.45% 44.083 NaCl 25,000 unit In 0.45 % NaCl 1 250ml.bag @ 2.5 mls/hr IV .Q24H [facility] Rx#: [id number] Oral 240 480 Output: Urine 1130 700 0 Other: Voiding Method Toilet Urinal Indwelling Catheter # Voids 1 0 0 # Bowel Movements 0 0 - Labs CBC & Chem 7: 07/29/21 20:02 07/29/21 20:02 Labs: Abnormal Lab Results - Last 24 Hours (Table) 07/29/21 07/29/21 07/29/21 Range/Units 16:11 16:32 20:02 WBC 19.8 H (3.8-10.6) k/uL Neutrophils # 16.9 H (1.3-7.7) k/uL Chloride (98-107) mmol/L Carbon Dioxide (22-30) mmol/L Glucose (74-99) mg/dL POC Glucose (mg/dL) 137 H 179 H (75-99) mg/dL Troponin I (0.000-0.034) ng/mL 02/05/22 02/05/22 Range/Units 20:02 20:02 WBC (3.8-10.6) k/uL Neutrophils # (1.3-7.7) k/uL Chloride 111 H (98-107) mmol/L Carbon Dioxide 20 L (22-30) mmol/L Glucose 162 H (74-99) mg/dL POC Glucose (mg/dL) (75-99) mg/dL Troponin I 0.369 H* (0.000-0.034) ng/mL
[2021-07-30 09:25] LABS: Basophils % (A) 0 %; Eosinophils # (A) 0.3 k/uL (0-0.7); Eosinophils % (A) 2 %; HCT 41.7 % (39.0-53.0); HGB 13.6 gm/dL (13.0-17.5); Lymphocytes # (A) 2.3 k/uL (1.0-4.8); Lymphocytes % (A) 15 %; MCH 29.2 pg (25.0-35.0); MCHC 32.6 g/dL (31.0-37.0); MCV 89.6 fL (80.0-100.0); Mean Platelet Volume 7.7; Monocytes # (A) 0.9 k/uL (0-1.0); Monocytes % (A) 6 %; Neutrophils # (A) 11.8 k/uL (1.3-7.7); Neutrophils % (A) 76 %; Platelet Count 162 k/uL (150-450); RBC 4.66 m/uL (4.30-5.90); RDW 14.3 % (11.5-15.5); WBC 15.5 k/uL (3.8-10.6)
[2021-07-30 09:39] LABS: African American GFR (CKD) >90 (>60 ml/min/1.73 sqM); Anion Gap 5 mmol/L; Blood Urea Nitrogen 17 mg/dL (9-20); Calcium 9.3 mg/dL (8.4-10.2); Carbon Dioxide 25 mmol/L (22-30); Chloride 108 mmol/L (98-107); Glucose 117 mg/dL (74-99); Non-African American GFR(CKD) >90 (>60 ml/min/1.73 sqM); Potassium 4.7 mmol/L (3.5-5.1); Sodium 138 mmol/L (137-145)
[2021-07-30] MEDS: CEFEPIME 2 GM in SODIUM CHLORIDE 0.9% 100 ML IVPB SCH ×2 (10:04→21:02)
[2021-07-30] MEDS ORDERED: LIDOCAINE 1% INJ 10MG/ML (20 ML MDV) ONE (10:26)
[2021-07-30] MEDS ORDERED: fentaNYL (PF) 50 MCG/ML 2 ML AMP ONE (10:33)
[2021-07-30] MEDS ORDERED: MIDAZOLAM 2 MG/2 ML VIAL IV ONE (10:35)
[2021-07-30] MEDS ORDERED: LIDOCAINE 1% INJ 10MG/ML (20 ML MDV) SQ ONE (10:37)
[2021-07-30] MEDS ORDERED: fentaNYL (PF) 50 MCG/ML 2 ML AMP IV ONE (10:38)
[2021-07-30] MEDS ORDERED: IV FLUID CONTINUATION 900 ML IV ONE (10:46)
[2021-07-30] MEDS ORDERED: IOPAMIDOL-250 100ML BTL IV ONE (10:48)
--- NOTE | 2021-07-30 11:15 | P.PN ---
Subjective Progress Note Date: 07/30/21 On today's evaluation of 07/27/2021, the patient is still having some vague chest discomfort and some ongoing exertional dyspnea. Nevertheless, no hemodynamic instability. No tachycardia. No hypotension. No hypoxemia and the patient is currently on room air oxygen. Echocardiogram was done and showed LV hypertrophy, RV was dilated, no significant pulmonary hypertension was noted and there was no evidence of any RV strain pattern according to the billing checker. There was mild aortic valve sclerosis, mild mitral regurgitation and tricuspid regurgitation. Patient is currently on IV heparin. The patient is going to be switched to antipronation orally with Eliquis. No bleeding complications. The patient also has a right lower extremity popliteal DVT. On today's blood work, the white cell count is at 14.3 with a hemoglobin of 15.5. Patient has a PTT of 49.7. Rest of the carotids are all within normal limits. Room air pulse oximetries 99%. 07/28/2021, seeing the patient for a follow-up. Patient is still short of breath on room air oxygen. I elected discussion with cardiology. Based on an comparison that was done with an earlier echocardiogram, the RV dilatation was significant and there was of a new onset. As such, it was thought that they pulmonary embolism was the culprit. Based on that, it was recommended to proceed with intra-arterial thrombolytic therapy with EKOS. The patient is doing well. Hemodynamically stable. Has not been started on Eliquis yet. He remains on IV heparin. The plan is to proceed with the treatment and the patient will be transferred to the ICU following the intra-arterial thrombolytic therapy. The patient otherwise is doing well. Hemoglobin stable at 13.8 with a rate of down to 228. The renal function is stable with a creatinine of 0.8 and a BUN of 24 with a sodium level of 139. 2021, the patient completed EKOS and the thrombolytic therapy has been discontinued and the patient has completed the procedure without any complicat ion. Hemoglobin is stable at 13.1. He is started on oxygen at 3 L and this could be easily weaned off as the patient was not having any issues oxygenation prior to the procedure. White cell count at 13.7. Hemoglobin was 13.1. No respiratory distress at rest. The groin area is clean. Hemodynamically stable. Tolerating his diet. The plan is to remove the catheters on the patient on anticoagulation with Xarelto. 07/30 2021, I'm seeing the patient for a follow-up. Events from yesterday was noted. The patient while taking a short walk yesterday and within 30-50 feet of walking, the patient became unresponsive. He is up rolling of the eyes. No previous seizure activity was noted. Noted the patient became hemodynamically unstable. He became bradycardic. He did not lose a pulse. He was given atropine. He was immediately placed back on his bedside. He became tachycardic and hypotensive and subsequently his blood pressure improved and his heart rate slowed down. He totally regained back his neurologic functions. Based on that, I did a CT angiogram. The blood clots on extensive and they're bilateral. There is RV strain pattern. I think that there is some interval progression the blood clots. I cannot absolutely say there is any new clots, however, despite being treated with EKOS and anticoagulation with Xarelto, the patient has developed progression of the left main artery clot with possibly a septic component to it. As such, the patient was kept in a bedrest. He is currently on 4 L of oxygen by nasal cannula. Discussed the case with vascular surgery. Discussed the case with cardiology. We'll decide to proceed with an IVC filter placement due to the critical nature of the patient's pulmonary embolism and the hemodynamic instability the patient encountered while being on maximal treatment. He does have RV dysfunction. He may not be able to handle another episode of clotting or embolization. The patient has no hemoptysis. The patient is hemodynamically stable at this point in time. No cough. No chest pain. There is some limited troponin leak. The plan is to proceed with an IVC filter placement today. Objective - Vital Signs Vital signs: Vital Signs Temp 98.2 F 07/30/21 08:30 Pulse 87 07/30/21 10:00 Resp 11 L 07/30/21 10:00 BP 100/63 07/30/21 10:00 Pulse Ox 96 07/30/21 10:00 Intake & Output 07/29/21 07/30/21 07/30/21 18:59 06:59 18:59 Intake Total 1608.541 740 150 Output Total 1130 700 0 Balance 478.541 40 150 Weight 169.8 kg Intake: IV 1280 260 150 Alteplase 10 mg In Sodium 0 Chloride 0.9% 100 ml @ 1 MG/HR 10 mls/hr IV .Q10H [facility] Rx#:[id number] Alteplase 10 mg In Sodium 0 Chloride 0.9% 100 ml @ 1 MG/HR 10 mls/hr IV .Q10H [facility] Rx#:[id number] Cefepime 2 gm In Sodium 100 100 Chloride 0.9% 100 ml @ 25 mls/hr IVPB Q12HR [facility] Rx #:[id number] Protocol saline post-TPA 140 Sodium Chloride 0.9% 1, 70 000 ml @ 35 mls/hr IV . Q24H [facility] Rx#:[id number] Sodium Chloride 0.9% 1, 70 000 ml @ 35 mls/hr IV . Q24H [facility] Rx#:[id number] Sodium Chloride 0.9% 1, 1000 160 000 ml @ 999 mls/hr IV . Q1H1M [facility] Rx#:[id number] Intake, IV Titration 88.541 Amount Heparin Sod,Pork in 0.45% 44.458 NaCl 25,000 unit In 0.45 % NaCl 1 250ml.bag @ 2.5 mls/hr IV .Q24H [facility] Rx#: [id number] Heparin Sod,Pork in 0.45% 44.083 NaCl 25,000 unit In 0.45 % NaCl 1 250ml.bag @ 2.5 mls/hr IV .Q24H [facility] Rx#: [id number] Oral 240 480 Output: Urine 1130 700 0 Other: Voiding Method Toilet Urinal Indwelling Catheter # Voids 1 0 1 # Bowel Movements 0 0 - Exam GENERAL: The patient is alert and oriented x3, not in any acute distress. Well developed, well nourished. Obese, breathing is nonlabored and the patient is not having an intestinal distress. No use of excessive muscle breathing. No tachypnea. 3 L O2 by nasal cannula. Patient is obesity BMI 50.9. HEENT: Pupils are round and equally reacting to light. EOMI. No scleral icterus. No conjunctival pallor. Normocephalic, atraumatic. No pharyngeal erythema. No thyromegaly. CARDIOVASCULAR: S1 and S2 present. No murmurs, rubs, or gallops. PULMONARY: Chest is clear to auscultation, no wheezing or crackles. ABDOMEN: Soft, nontender, nondistended, normoactive bowel sounds. No palpable organomegaly. MUSCULOSKELETAL: No joint swelling or deformity. EXTREMITIES: No cyanosis, clubbing, right lower extremity pedal edema , and the patient has a sheath in his right groin there will be taken off today by cardiology. No evidence of any hematoma. No evidence of any bleeding. NEUROLOGICAL: Gross neurological examination did not reveal any focal deficits. SKIN: No rashes. - Labs CBC & Chem 7: 07/30/21 09:05 07/30/21 09:05 Labs: Abnormal Lab Results - Last 24 Hours (Table) 07/29/21 07/29/21 07/29/21 Range/Units 16:11 16:32 20:02 WBC 19.8 H (3.8-10.6) k/uL Neutrophils # 16.9 H (1.3-7.7) k/uL Chloride (98-107) mmol/L Carbon Dioxide (22-30) mmol/L Glucose (74-99) mg/dL POC Glucose (mg/dL) 137 H 179 H (75-99) mg/dL Troponin I (0.000-0.034) ng/mL 07/29/21 07/29/21 07/30/21 Range/Units 20:02 20:02 09:05 WBC (3.8-10.6) k/uL Neutrophils # (1.3-7.7) k/uL Chloride 111 H 108 H (98-107) mmol/L Carbon Dioxide 20 L (22-30) mmol/L Glucose 162 H 117 H (74-99) mg/dL POC Glucose (mg/dL) (75-99) mg/dL Troponin I 0.369 H* (0.000-0.034) ng/mL 07/30/21 Range/Units 09:05 WBC 15.5 H (3.8-10.6) k/uL Neutrophils # 11.8 H (1.3-7.7) k/uL Chloride (98-107) mmol/L Carbon Dioxide (22-30) mmol/L Glucose (74-99) mg/dL POC Glucose (mg/dL) (75-99) mg/dL Troponin I (0.000-0.034) ng/mL Assessment and Plan Plan: 1 acute recurrent unprovoked pulmonary embolism. The patient has significant clot burden on the CT angiogram and the patient has bilateral pulmonary embolism. Troponins are elevated. No evidence of any RV strain pattern based on the CAT scan finding. 2-D echocardiogram was completed and the patient was found to have RV dilatation without any significant pulmonary hypertension or RV strain pattern. This is of a new onset and was not present on previous echocardiogram that was done and . Based on comparison that was done by cardiology, the patient has obvious RV dysfunction/dilatation is considered to be related to the pulmonary embolism for that reason intra-arteria l thrombolytic therapy EKOS was offered and was completed yesterday without any complications. The sheath and the catheters were removed today. Nevertheless, while doing some limited activity yesterday and within 50 feet of walking, the patient became hemodynamically unstable, bradycardic, hypotensive and he had lost consciousness. We think that this is related to pulmonary embolism and RV dysfunction. Whether this is a progression of the original embolization versus a new embolization is to be determined. Based on the CAT scan findings, the left pulmonary artery clot has extended into the left main pulmonary artery trunk and hasn't several component to it. There are filling defects in the pulmonary arteries bilaterally consistent with extensive embolization despite EKOS and despite being on anticoagulation with Xarelto. Plan is to proceed with IVC filter placement. Patient is currently on today's intervention by nasal cannula and the patient is hemodynamically stable. Some limited infiltration left lung bases related to pulmonary embolism. 2 right lower extremity DVT, popliteal 3 previous history of DVT and pulmonary embolism back in 2009 and this involved the left lower extremity. 4 previous history of IVC filter insertion and subsequent removal. 5 previous history of hemorrhoidal bleed 6 COPD 7 obesity 8 obstructive sleep apnea Plan had a discussion with cardiology and vascular surgery. We decided to proceed with an IVC filter placement. The patient has significant RV dysfunction and he may be significantly hemodynamically stable and there is any recurrence event of embolization and for that reason a filter may help this patient states hemodyna mically stable. The events from yesterday was quite life-threatening and the setting an IVC filter is very reasonable as the patient showed some progression despite being on aggressive treatment with anticoagulation and thrombolytic agents. Note that the patient Completed EKOS and the patient is currently on anticoagulation with Xarelto. Continue anticoagulation with Xarelto Keep the patient ICU for another 24 hours for monitoring Wean down FiO2 as tolerated Troponin leak is related to pulmonary embolism May need to repeat an echocardiogram at a later stage to evaluate RV dysfunction IV cefepime, discontinue Hemoglobin stable We'll continue to follow.
[2021-07-30] MEDS: DOCUSATE 100 MG CAP PO SCH (11:21)
[2021-07-30] MEDS: FAMOTIDINE 20 MG TAB PO SCH (11:21)
--- NOTE | 2021-07-30 11:24 | P.GSCN ---
History of Present Illness Consult date: 07/30/21 Reason for Consult: Recurrent pulmonary embolism while adequately anticoagulated. Questionable need for IVC filter. Requesting physician: Yue Corbett History of present illness: Patient is a 41 year old male who presented to the hospital with hemodynamically significant/submassive pulmonary embolism which required TPA thrombolytic lysis for symptomatic improvement as the patient demonstrated significant right-sided heart strain on echocardiogram. This heart strain was not present on echocardiogram performed at an outside institution 2 years prior. After successful thrombo-lysis the patient experienced an event where he became hypotensive and branch decreased level of consciousness. This resolved. Pat ient thereafter underwent repeat CTA of the pulmonary system which demonstrated what could be considered a recurrent pulmonary embolism. Because of the fact the patient bearings this hypotensive and appears to have suffered a repeat pulmonary embolism while adequate anticoagulated consultation was requested for placement of IVC filter. The patient has undergone bilateral venous duplex of the lower extremities demonstrated bilateral popliteal venous thrombosis which appears acute. The patient has a prior history of DVT and pulmonary embolism and had a IVC filter placed approximate 7 years prior. This filter remained in place for approximate 4-5 months prior to removal. The patient was dismissed on oral anticoagulation. It appears that it was recommended the patient be maintained on lifelong oral anticoagulation. The patient stopped this medication of his own volition approximate 6 months prior. Past Medical History Past Medical History: COPD, Deep Vein Thrombosis (DVT), Pulmonary Embolus (PE) Additional Past Medical History / Comment(s): SHAQ. Obesity. COPD. DVT and PE in the LLE in 2009. IVC filter placement and removal in 2014. Hemorrhoidal bleed and the patient is off anticoagulation for 2 years History of Any Multi-Drug Resistant Organisms: None Reported Past Surgical History: No Surgical Hx Reported Past Psychological History: Depression Smoking Status: Current every day smoker Past Alcohol Use History: None Reported Past Drug Use History: None Reported Medications and Allergies Home Medications Medication Instructions Recorded Confirmed Type Albuterol Sulfate [Ventolin HFA] 2 puff INHALATION RT-Q6H PRN 07/25/21 07/25/21 History Ergocalciferol (Vitamin D2) 1,250 mcg PO MO 07/25/21 07/25/21 History [Drisdol (50,000 Iu)] Famotidine 40 mg PO BID PRN 07/25/21 07/25/21 History HYDROcodone/APAP 10-325MG [[place] 1 tab PO Q6HR PRN 07/25/21 07/25/21 History 10-325] Allergies Allergy/AdvReac Type Severity Reaction Status Date / Time No Known Allergies Allergy Verified 07/25/21 18:27 Surgical - Exam Osteopathic Statement: *. No significant issues noted on an osteopathic structural exam other than those noted in the History and Physical/Consult. Vital Signs Temp Pulse Resp BP Pulse Ox 100.6 F H 105 H 22 165/86 94 L 07/25/21 18:27 07/25/21 18:27 07/25/21 18:27 07/25/21 18:27 07/25/21 18:27 Results - Labs 07/30/21 09:05 07/30/21 09:05 Abnormal Lab Results - Last 24 Hours (Table) 07/29/21 07/29/21 07/29/21 Range/Units 16:11 16:32 20:02 WBC 19.8 H (3.8-10.6) k/uL Neutrophils # 16.9 H (1.3-7.7) k/uL Chloride (98-107) mmol/L Carbon Dioxide (22-30) mmol/L Glucose (74-99) mg/dL POC Glucose (mg/dL) 137 H 179 H (75-99) mg/dL Troponin I (0.000-0.034) ng/mL 07/29/21 07/29/21 07/30/21 Range/Units 20:02 20:02 09:05 WBC (3.8-10.6) k/uL Neutrophils # (1.3-7.7) k/uL Chloride 111 H 108 H (98-107) mmol/L Carbon Dioxide 20 L (22-30) mmol/L Glucose 162 H 117 H (74-99) mg/dL POC Glucose (mg/dL) (75-99) mg/dL Troponin I 0.369 H* (0.000-0.034) ng/mL 07/30/21 Range/Units 09:05 WBC 15.5 H (3.8-10.6) k/uL Neutrophils # 11.8 H (1.3-7.7) k/uL Chloride (98-107) mmol/L Carbon Dioxide (22-30) mmol/L Glucose (74-99) mg/dL POC Glucose (mg/dL) (75-99) mg/dL Troponin I (0.000-0.034) ng/mL Diabetes panel 07/29/21 07/30/21 Range/Units 20:02 09:05 Sodium 138 138 (137-145) mmol/L Potassium 4.7 (3.5-5.1) mmol/L Chloride 111 H 108 H (98-107) mmol/L Carbon Dioxide 20 L 25 (22-30) mmol/L BUN 19 17 (9-20) mg/dL Creatinine 0.72 0.66 (0.66-1.25) mg/dL Glucose 162 H 117 H (74-99) mg/dL Calcium 9.3 9.3 (8.4-10.2) mg/dL Calcium panel 07/29/21 07/30/21 Range/Units 20:02 09:05 Calcium 9.3 9.3 (8.4-10.2) mg/dL Pituitary panel 07/29/21 07/30/21 Range/Units 20:02 09:05 Sodium 138 138 (137-145) mmol/L Potassium 4.7 (3.5-5.1) mmol/L Chloride 111 H 108 H (98-107) mmol/L Carbon Dioxide 20 L 25 (22-30) mmol/L BUN 19 17 (9-20) mg/dL Creatinine 0.72 0.66 (0.66-1.25) mg/dL Glucose 162 H 117 H (74-99) mg/dL Calcium 9.3 9.3 (8.4-10.2) mg/dL Adrenal panel 07/29/21 07/30/21 Range/Units 20:02 09:05 Sodium 138 138 (137-145) mmol/L Potassium 4.7 (3.5-5.1) mmol/L Chloride 111 H 108 H (98-107) mmol/L Carbon Dioxide 20 L 25 (22-30) mmol/L BUN 19 17 (9-20) mg/dL Creatinine 0.72 0.66 (0.66-1.25) mg/dL Glucose 162 H 117 H (74-99) mg/dL Calcium 9.3 9.3 (8.4-10.2) mg/dL - Imaging CT scan - chest: image reviewed (Venous duplex of the bilateral lower extremities was also reviewed.) Assessment and Plan Assessment: #1. Acute recurrent pulmonary embolism in spite of adequate anticoagulation. #2: Bilateral lower extremity DVT involving the popliteal segment. #3: Morbid obesity. #4: Noncompliance. #5: Status post TPA thrombo-lysis for submassive pulmonary embolism during his hospitalization. #6: Possible hypercoagulable syndrome. Plan: #1: I discussed with the patient IVC filter placement given the fact that he did experience a repeat pulmonary embolism in spite of adequate anticoagulation. The procedure, risks were discussed with the patient. The patient wished to proceed. This will be performed later today. #2 I did discuss with the patient the need for weight loss and to obtain a more appropriate BMI. This would help with venous return and avoiding recurrent thromboembolic events. #3: I would recommend the use of prescription knee high support hose to help avoid venous stasis. Time with Patient: Less than 30
--- NOTE | 2021-07-30 11:31 | P.OP ---
Date of Procedure: 07/30/21 Preoperative Diagnosis: #1: Recurrent pulmonary embolism in spite of adequate anticoagulation. #2: Recent history of submassive pulmonary embolism status post TPA thrombo- lysis. Postoperative Diagnosis: Same. Procedure(s) Performed: #1: Ultrasound-guided cannulation of the left femoral vein. #2: Left iliac and inferior vena cava venography. #3: Placement of IVC filter. Implants: IVC filter. Anesthesia: MAC, local Surgeon: Charlie Chris Estimated Blood Loss (ml): 2 Pathology: none sent Condition: stable Disposition: no change Indications for Procedure: Patient is a 41-year-old male who had presented with a pulmonary embolism. He did undergo TPA thrombolysis successfully however did experience what appears to be a recurrent pulmonary embolism in spite of adequate anticoagulation. As such the patient is offered IVC filter placement. The procedure, risk and benefits were discussed. Patient wished to proceed. Description of Procedure: Patient is brought to the special procedure suite. Both groins were sterilely prepped and draped in usual manner. Sounds was utilized to evaluate the right common femoral vein. Tissue changes secondary to his recent percutaneous cement performed through the right femoral venous system made imaging somewhat difficult and as such it was decided to place the filter via the left femoral vein. As such ultrasound was utilized to identify the left common femoral vein. Once identified 1% Xylocaine was utilized for local anesthesia tissues overlying the femoral vein. With the aid of ultrasound a multipurpose needle was utilized to cannulate the vein and once cannulated Softip guidewire was advanced into the vein. The needle was withdrawn and a 5-[place] sheath was placed. Left iliac venogram and inferior venacavogram were then performed. This demonstrated no iliac or caval thrombus and the cava was less than 28 mm in diameter. Guidewire was advanced through the 5-[place] sheath and vascular dilator was advanced and withdrawn from over the guidewire. The filter sheath and dilator were advanced over the guidewire and positioned at the L2 level. The dilator was withdrawn. A tulip filter was advanced and deployed at the L2-L3 interspace. Completion venography demonstrated the filter to be in proper location. The sheath was withdrawn and pressure was held at the puncture site until all evidence of bleeding ceased. Patient tolerated the procedure well. Total fluoroscopy time 0.5 minutes. Total contrast volume 20 ML's of Isovue 250.
[2021-07-30] MEDS ORDERED: SODIUM CHLORIDE 0.65% NASAL SPRAY 44 ML BTL NASAL PRN (13:02)
--- NOTE | 2021-07-30 13:06 | P.PN ---
Subjective Progress Note Date: 07/30/21 Patient is a 41-year-old came in with the sharp chest pain, pleuritic in nature. Patient had a recent upper respiratory tract infection about the 5-7 days ago which is not Covid 19, along with multiple family members. Patient has history of DVT in the past initially was on Coumadin then on xarelto, had a hemorrhoidal bleed because of which patient received IVC filter and patient was subsequently resumed on Xarelto which has not been taking on regular basis because of its side effects he takes his medication on and off. Patient was short of breath when he came in and does smoke about a pack of cigarettes per day willing to quit patient had a CT of the chest which showed pulmonary embolism bilateral lower lobes without any evidence of right and was treated on the CAT scan but the troponin elevations of 0.318, 0.147, 0.075. Cardiology was consulted for possible EKOS, echocardiogram was ordered patient had a lot of Doppler of the right lower extremity which showed DVT in the popliteal vein. 07/27/2021 Patient evaluated today sitting up in the chair with his significant other at the bedside. Continues to complain of shortness of breath mildly at rest and worse with exertion. He is on room air saturation 99% at rest, blood pressure 118/67, heart rate 97, afebrile. Echocardiogram shows an EF of 50-55% with mild concentric left ventricular hypertrophy, right ventricle severely enlarged right ventricle septal wall is flattened with diastole and systole which is consistent for ventricular volume pressure overload, RV strain was not performed. Also, mild aortic valve sclerosis, mitral regurgitation and mild tricuspid regurgitation. Cardiology obtaining previous echo from [place] for comparison. Patient can use oxygen as needed when ambulating if becoming hypoxic. WBC today 14.3. 07/28/2021 Patient evaluated today sitting up in a chair with his significant other at the bedside. Patient did complain of a rough night and states that he was short of breath and overall not feeling well. He continues with dyspnea on exertion as well as some chest discomfort with deep inspiration and expiration, his face does appear to have a grayish hue to it. Did give patient a 2 L nasal cannula to wear for comfort and as needed with ambulation, during my examination patient's color improved in his face while on the nasal cannula. Plan today is for EKOs procedure, as reports were obtained from [place] and compared it appears right ventricular enlargement is new. He does have some scattered wheezing, we did order some updrafts for patient in light of his tobacco history and he does state he has COPD. vital signs today afebrile, heart rate 74, blood pressure 111/69 and he is 96% on room air and 96% on 2L nasal cannula. 07/29/2021 Patient evaluated in the ICU on bedrest s/p EKOs procedure with [address]. Stated he is tolerating the procedure well although did not get much sleep last night. Chest x-ray today shows new left suprahilar surgical changes, lungs remain clear. Labs available from today show a white count 13.7, sodium 138, potassium 4.5, chloride 106, CO2 26, BUN 20, creatinine 0.74, glucose 111. Patient did spike a temp of 101 last night, currently afebrile, heart rate 86, respirations 18, blood pressure 127/70, 92-93% on 2 L n kiarra cannula. Transitioned to Xarelto today. Being followed closely by cardiology and pulmonary/wrecker driver. Patient states discharge out of ICU today, will increase activity. 07/30/2021 Patient evaluated today in the ICU. Yesterday around 4 patient ambulating in hallway made it 2 rooms and went back was sitting in chair with his significant other the bedside. Per significant other patient reported that he couldn't see and then he went unresponsive and was foaming at the mouth. Patient doesnt remember what happened. Vitals charted at that time shows a heart rate of 30 and then patient became tachycardic in the 170-140s. He was given a dose of Atropine. Patient went done for brain CT which showed no acute intracranial process. CTA shows interval development of a nonocclusive thrombus in left main pulmonary artery that minimally straddles the pulmonary artery bifurcation. There is new evidence of mild right heart strain. Redemonstration of multiple large right filling defects in the distal main pulmonary arteries bilaterally extending into the upper and lower lobes. Interval development of left lower lobe pneumonia. We will add an IS. Patient is on IV cefepime. Chest x-ray fallon ws cardiomegaly without acute pulmonary infiltrate. Labs today 15.5, sodium 138, potassium 4.7. Troponin yesterday 0.369 ROS Constitutional: Denied fever, feels fatigued, slept well last night. Reports anxiety Cardio vascular: Denies chest pain, chest pressure, palpitations Gastrointestinal denied any nausea vomiting Pulmonary: Denies cough, chest discomfort with deep inspiration has improved f rom yesterday, denying shortness of breath at rest. Neurologic denied any new focal deficits All inpatient medications were reviewed and appropriate changes in these medications as dictated in the interval history and assessment and plan. PHYSICAL EXAMINATION: GENERAL: The patient is alert and oriented x3, not in acute distress, Well developed, well nourished. Obese HEENT: Pupils are round and equally reacting to light. EOMI. No scleral icterus. No conjunctival pallor. Normocephalic, atraumatic. No pharyngeal erythema. No thyromegaly. CARDIOVASCULAR: S1 and S2 present. No murmurs, rubs, or gallops. PULMONARY: Wheezing improved from yesterday, bilateral rales noted ABDOMEN: Soft, nontender, nondistended, normoactive bowel sounds. No palpable organomegaly. MUSCULOSKELETAL: No joint swelling or deformity. EXTREMITIES: No cyanosis, clubbing, biltateral lower extremity edema, right gr eater than left Right foot cooler than left NEUROLOGICAL: Gross neurological examination did not reveal any focal deficits. SKIN: No rashes. Assessment and plan -Acute recurrent pulmonary embolism without evidence for right heart strain, however RV dilation found on echocardiogram was new compared to previous echo: His risk factors include smoking, obesity, recent infection. Patient has not be en ambulating since his recent upper respiratory infection. He is now evaluated in ICU S/P EKOS procedure for acute bilateral PE. He has been transitioned to Xarelto. Possible of new PE development s/p EKOS -Acute DVT right popliteal with history chronic DVT in the left s/p [place] filter placement today -Troponin elevation secondary to pulmonary embolism and RV dilation -Fever and tachycardia: Secondary to pulmonary embolism, resolved. -Leukocytosis, most likely reactive from PE and shallow respirations -History of PE and DVT in the past patient will need lifelong anticoagulation patient presently doesn't have IVC filter at this time, was removed in 2014. -Nicotine use: Counseling was provided will need ongoing support, nicotine patch offered -History of COPD, not in exacerbation -Obesity with obstructive sleep apnea DVT prophylaxis: Xarelto GI prophylaxis: On pepcid FULL CODE Plan Monitor vital signs Neuro checks Oxygen support Pain management Increase Mobile to Q4 discontinued dilaudid Prognosis guarded Objective - Vital Signs Vital signs: Vital Signs Temp 99.1 F 07/30/21 12:10 Pulse 82 07/30/21 12:10 Resp 12 07/30/21 12:10 BP 113/61 07/30/21 12:10 Pulse Ox 95 07/30/21 12:10 Intake & Output 07/29/21 07/30/21 07/30/21 18:59 06:59 18:59 Intake Total 1608.541 740 150 Output Total 1130 700 300 Balance 478.541 40 -150 Weight 169.8 kg Intake: IV 1280 260 150 Alteplase 10 mg In Sodium 0 Chloride 0.9% 100 ml @ 1 MG/HR 10 mls/hr IV .Q10H [facility] Rx#:[id number] Alteplase 10 mg In Sodium 0 Chloride 0.9% 100 ml @ 1 MG/HR 10 mls/hr IV .Q10H [facility] Rx#:[id number] Cefepime 2 gm In Sodium 100 100 Chloride 0.9% 100 ml @ 25 mls/hr IVPB Q12HR [facility] Rx #:[id number] Protocol saline post-TPA 140 Sodium Chloride 0.9% 1, 70 000 ml @ 35 mls/hr IV . Q24H [facility] Rx#:[id number] Sodium Chloride 0.9% 1, 70 000 ml @ 35 mls/hr IV . Q24H [facility] Rx#:[id number] Sodium Chloride 0.9% 1, 1000 160 000 ml @ 999 mls/hr IV . Q1H1M [facility] Rx#:[id number] Intake, IV Titration 88.541 Amount Heparin Sod,Pork in 0.45% 44.458 NaCl 25,000 unit In 0.45 % NaCl 1 250ml.bag @ 2.5 mls/hr IV .Q24H [facility] Rx#: [id number] Heparin Sod,Pork in 0.45% 44.083 NaCl 25,000 unit In 0.45 % NaCl 1 250ml.bag @ 2.5 mls/hr IV .Q24H [facility] Rx#: [id number] Oral 240 480 Output: Urine 1130 700 300 Other: Voiding Method Toilet Urinal Indwelling Catheter # Voids 1 0 1 # Bowel Movements 0 0 - Labs CBC & Chem 7: 07/30/21 09:05 07/30/21 09:05 Labs: Abnormal Lab Results - Last 24 Hours (Table) 07/29/21 07/29/21 07/29/21 Range/Units 16:11 16:32 20:02 WBC 19.8 H (3.8-10.6) k/uL Neutrophils # 16.9 H (1.3-7.7) k/uL Chloride (98-107) mmol/L Carbon Dioxide (22-30) mmol/L Glucose (74-99) mg/dL POC Glucose (mg/dL) 137 H 179 H (75-99) mg/dL Troponin I (0.000-0.034) ng/mL 07/29/21 07/29/21 07/30/21 Range/Units 20:02 20:02 09:05 WBC (3.8-10.6) k/uL Neutrophils # (1.3-7.7) k/uL Chloride 111 H 108 H (98-107) mmol/L Carbon Dioxide 20 L (22-30) mmol/L Glucose 162 H 117 H (74-99) mg/dL POC Glucose (mg/dL) (75-99) mg/dL Troponin I 0.369 H* (0.000-0.034) ng/mL 07/30/21 Range/Units 09:05 WBC 15.5 H (3.8-10.6) k/uL Neutrophils # 11.8 H (1.3-7.7) k/uL Chloride (98-107) mmol/L Carbon Dioxide (22-30) mmol/L Glucose (74-99) mg/dL POC Glucose (mg/dL) (75-99) mg/dL Troponin I (0.000-0.034) ng/mL Assessment and Plan Time with Patient: Greater than 30
[2021-07-30] MEDS: polyethylene glycoL 3350 17 GM POWD.PACK PO SCH (21:06)
[2021-07-31] MEDS: HYDROcodone/APAP 10-325MG 1 EACH TAB PO PRN ×4 (05:51→20:09)
[2021-07-31 06:01] LABS: HCT 41.2 % (39.0-53.0); HGB 13.3 gm/dL (13.0-17.5); MCH 29.1 pg (25.0-35.0); MCHC 32.3 g/dL (31.0-37.0); MCV 90.2 fL (80.0-100.0); Mean Platelet Volume 7.7; Platelet Count 158 k/uL (150-450); RBC 4.57 m/uL (4.30-5.90); RDW 13.9 % (11.5-15.5); WBC 12.6 k/uL (3.8-10.6)
[2021-07-31 06:33] LABS: African American GFR (CKD) >90 (>60 ml/min/1.73 sqM); Anion Gap 5 mmol/L; Blood Urea Nitrogen 18 mg/dL (9-20); Calcium 9.2 mg/dL (8.4-10.2); Carbon Dioxide 25 mmol/L (22-30); Chloride 108 mmol/L (98-107); Glucose 99 mg/dL (74-99); Non-African American GFR(CKD) >90 (>60 ml/min/1.73 sqM); Potassium 4.8 mmol/L (3.5-5.1); Sodium 138 mmol/L (137-145)
[2021-07-31] MEDS: RIVAROXABAN 15 MG TAB PO SCH ×2 (07:13→18:52)
[2021-07-31] MEDS: IPRATROPIUM-ALBUTEROL 3 ML NEB INHALATION SCH ×2 (08:26→11:35)
--- NOTE | 2021-07-31 08:32 | IR ---
EXAMINATION TYPE: IR IVC filter placement DATE OF EXAM: 07/31/2021 COMPARISON: NONE HISTORY: Fluoroscopy time. Fluoroscopy was provided to the referring clinician.
[2021-07-31] MEDS: FAMOTIDINE 20 MG TAB PO SCH (08:47)
[2021-07-31] MEDS: CEFEPIME 2 GM in SODIUM CHLORIDE 0.9% 100 ML IVPB SCH ×2 (08:47→20:27)
--- NOTE | 2021-07-31 09:13 | P.PN ---
Subjective History of present illness: The patient presents with acute dyspnea. His symptoms started 3 days ago, worse on presentation with sharp chest pain. Prior to that he had what he describes as an upper respiratory infection. He was found to have evidence of pulmonary embolism on his CAT scan with multiple large pulmonary embolism in the lower lobe pulmonary arteries. There was no evidence of right heart strain. The aakash killian has a prior history of pulmonary embolism, multiple episodes with the last one 10 years ago and a history of DVT. He was maintained on anticoagulation initially Coumadin and subsequently Xarelto he stopped because of bleeding hemorrhoids. He has a prior history of IVC filter that was removed. Patient denies any history of cardiac disease, he denies any dizziness, palpitations or syncope. He has occasional peripheral edema. He is not very active physically. He denies any recent discomfort in the lower extremities or recent trauma. He has no history of hypertension, hyperlipidemia or diabetes. He smokes over a pack a day. He denies any alcohol abuse. He has chronic episodes of wheezing and cough related to his COPD. At a rate of [address]-T segment changes with T-wave inversion anteriorly. His duplex scan of the lower extremities showed evidence of right DVT in the right popliteal vein and nonocclusive thrombus of indeterminate age in the left popliteal vein. His troponin are mildly elevated at 0.318, 0.147, 0.075. His NT proBNP was 1750. Respiratory: The patient has a history of dyspnea on exertion, cough and wheezing as well as a history of COPD GI: No nausea, vomiting. No history of peptic ulcer disease. He has a history of hemorrhoids with prior bleeding. : No hematuria or dysuria. Nervous System: No stroke or seizure. Head: Normocephalic. Alert and oriented in no acute distress, obese Eyes: Sclerae nonicteric. Neck: Good carotid upstroke, no bruit, no jugular venous distention. Lungs: Clear to auscultation. Heart: Regular rate and rhythm, S1-S2, no S3, no murmur or rub. Abdomen: Soft nontender, positive bowel sounds no organomegaly. Extremities: No edema, intact distal pulses. Meli signs negative Impression: 1. Acute multiple pulmonary embolism 2. NSTEMI 3. Prior history of pulmonary embolism, noncompliant with anticoagulation 4. History of chronic tobacco use 5. Dyspnea on exertion 6. Near syncopal episode with bradycardia after walking with significant bradycardia improved with atropine. May be vagal mediated versus more likely felt related to hypoxia from new PE 7. CTA showing worsened PE after bradycardic episode. Concern of further thromboembolism. Status post [place] filter Plan: Continue with anticoagulation with Xarelto. Patient is status post [place] filter placement due to concern of worsened PE, thromboembolism which may have caused his bradycardiac episode. Attempt to increase activity. Patient is having some angina-type symptoms with mildly abnormal EKG with T-wave inversions V1 through V3. There is a consideration of possible underlying CAD exacerbating presentation with additional mildly elevated troponins. We will check a Lexiscan stress test to rule out any ischemia. Objective - Vital Signs Vital signs: Vital Signs Temp 98.9 F 07/31/21 04:00 Pulse 82 07/31/21 08:37 Resp 18 07/31/21 07:00 BP 102/70 07/31/21 07:00 Pulse Ox 95 07/31/21 07:00 Intake & Output 07/30/21 07/31/21 07/31/21 18:59 06:59 18:59 Intake Total 400 440 Output Total 675 725 Balance -275 -285 Weight 168 kg Intake: IV 150 200 Cefepime 2 gm In Sodium 100 200 Chloride 0.9% 100 ml @ 25 mls/hr IVPB Q12HR [facility] Rx #:[id number] Oral 250 240 Output: Urine 675 725 Other: Voiding Method Urinal Urinal # Voids 1 0 0 # Bowel Movements 0 - Labs CBC & Chem 7: 07/31/21 05:36 07/31/21 05:36 Labs: Abnormal Lab Results - Last 24 Hours (Table) 07/30/21 07/30/21 07/31/21 Range/Units 09:05 09:05 05:36 WBC 15.5 H (3.8-10.6) k/uL Neutrophils # 11.8 H (1.3-7.7) k/uL Chloride 108 H 108 H (98-107) mmol/L Glucose 117 H (74-99) mg/dL 07/31/21 Range/Units 05:36 WBC 12.6 H (3.8-10.6) k/uL Neutrophils # (1.3-7.7) k/uL Chloride (98-107) mmol/L Glucose (74-99) mg/dL
[2021-07-31] MEDS ORDERED: REGADENOSON 0.4 MG/5 ML SYRINGE IV PRN (09:14)
[2021-07-31] MEDS ORDERED: CAFFEINE CITRATE 60 MG/3 ML VIAL IV PRN (09:14)
[2021-07-31] MEDS ORDERED: AMINOPHYLLINE 500 MG/20 ML VIAL IV PRN (09:14)
[2021-07-31] MEDS: DOCUSATE 100 MG CAP PO SCH (09:14)
--- NOTE | 2021-07-31 12:19 | P.PN ---
Subjective Progress Note Date: 07/31/21 Patient is a 41-year-old came in with the sharp chest pain, pleuritic in nature. Patient had a recent upper respiratory tract infection about the 5-7 days ago which is not Covid 19, along with multiple family members. Patient has history of DVT in the past initially was on Coumadin then on xarelto, had a hemorrhoidal bleed because of which patient received IVC filter and patient was subsequently resumed on Xarelto which has not been taking on regular basis because of its side effects he takes his medication on and off. Patient was short of breath when he came in and does smoke about a pack of cigarettes per day willing to quit patient had a CT of the chest which showed pulmonary embolism bilateral lower lobes without any evidence of right and was treated on the CAT scan but the troponin elevations of 0.318, 0.147, 0.075. Cardiology was consulted for possible EKOS, echocardiogram was ordered patient had a lot of Doppler of the right lower extremity which showed DVT in the popliteal vein. 07/27/2021 Patient evaluated today sitting up in the chair with his significant other at the bedside. Continues to complain of shortness of breath mildly at rest and worse with exertion. He is on room air saturation 99% at rest, blood pressure 118/67, heart rate 97, afebrile. Echocardiogram shows an EF of 50-55% with mild concentric left ventricular hypertrophy, right ventricle severely enlarged right ventricle septal wall is flattened with diastole and systole which is consistent for ventricular volume pressure overload, RV strain was not performed. Also, mild aortic valve sclerosis, mitral regurgitation and mild tricuspid regurgitation. Cardiology obtaining previous echo from [place] for comparison. Patient can use oxygen as needed when ambulating if becoming hypoxic. WBC today 14.3. 07/28/2021 Patient evaluated today sitting up in a chair with his significant other at the bedside. Patient did complain of a rough night and states that he was short of breath and overall not feeling well. He continues with dyspnea on exertion as well as some chest discomfort with deep inspiration and expiration, his face does appear to have a grayish hue to it. Did give patient a 2 L nasal cannula to wear for comfort and as needed with ambulation, during my examination patient's color improved in his face while on the nasal cannula. Plan today is for EKOs procedure, as reports were obtained from [place] and compared it appears right ventricular enlargement is new. He does have some scattered wheezing, we did order some updrafts for patient in light of his tobacco history and he does state he has COPD. vital signs today afebrile, heart rate 74, blood pressure 111/69 and he is 96% on room air and 96% on 2L nasal cannula. 07/29/2021 Patient evaluated in the ICU on bedrest s/p EKOs procedure with [address]. Stated he is tolerating the procedure well although did not get much sleep last night. Chest x-ray today shows new left suprahilar surgical changes, lungs remain clear. Labs available from today show a white count 13.7, sodium 138, potassium 4.5, chloride 106, CO2 26, BUN 20, creatinine 0.74, glucose 111. Patient did spike a temp of 101 last night, currently afebrile, heart rate 86, respirations 18, blood pressure 127/70, 92-93% on 2 L n kiarra cannula. Transitioned to Xarelto today. Being followed closely by cardiology and pulmonary/psychotherapist. Patient states discharge out of ICU today, will increase activity. 07/30/2021 Patient evaluated today in the ICU. Yesterday around 4 patient ambulating in hallway made it 2 rooms and went back was sitting in chair with his significant other the bedside. Per significant other patient reported that he couldn't see and then he went unresponsive and was foaming at the mouth. Patient doesnt remember what happened. Vitals charted at that time shows a heart rate of 30 and then patient became tachycardic in the 170-140s. He was given a dose of Atropine. Patient went done for brain CT which showed no acute intracranial process. CTA shows interval development of a nonocclusive thrombus in left main pulmonary artery that minimally straddles the pulmonary artery bifurcation. There is new evidence of mild right heart strain. Redemonstration of multiple large right filling defects in the distal main pulmonary arteries bilaterally extending into the upper and lower lobes. Interval development of left lower lobe pneumonia. We will add an IS. Patient is on IV cefepime. Chest x-ray fallon ws cardiomegaly without acute pulmonary infiltrate. Labs today 15.5, sodium 138, potassium 4.7. Troponin yesterday 0.369 07/31/2021 Patient evaluated today in the ICU. Significant other at the bedside. S/P op angel filter placement, no acute events overnight. Pt does complain of some nasal congestion, deep sea nasal spray has been ordered. Bilateral lower extremity peripheral edema, positive pulses bilateral. Patient to undergo lexiscan stress test tomorrow to rule out underlying CAD as recommended by cardiology. Labs today white blood cell count 12.6, hemoglobin 13.3, sodium 138, potassium 4.8, chloride 108, CO2 25, BUN 18, creatinine 0.67, blood glucose 99, calcium 9.2. Troponin today 0.236. Vitals today afebrile, heart rate 82, blood pressure 153/91, 95% on 2 L nasal cannula. Patient states that he slept well last night, denies any chest pain at rest does have some tightness with deep inspiration and expiration. He is slightly wheezy. He is still on updrafts as needed. On IV cefepime. Nicotine patch ordered today at lower dose. He is also slightly anxious, does not want any medication for this, he feels better when his is at the bedside due to the complexity of his care right now. He is anxious to get up and move around and to the chair without her due to his syncopal episode on Saturday. ROS Constitutional: Denied fever, feels fatigued, slept well last night. Reports anxiety Cardio vascular: Denies chest pain, chest pressure, palpitations Gastrointestinal denied any nausea vomiting Pulmonary: Denies cough, chest discomfort with deep inspiration has improved from yesterday, denying shortness of breath at rest. Neurologic denied any new focal deficits All inpatient medications were reviewed and appropriate changes in these medications as dictated in the interval history and assessment and plan. PHYSICAL EXAMINATION: GENERAL: The patient is alert and oriented x3, not in acute distress, Well developed, well nourished. Obese HEENT: Pupils are round and equally reacting to light. EOMI. No scleral icterus. No conjunctival pallor. Normocephalic, atraumatic. No pharyngeal erythema. No thyromegaly. CARDIOVASCULAR: S1 and S2 present. No murmurs, rubs, or gallops. PULMONARY: Wheezing noted, bilateral rales noted ABDOMEN: Soft, nontender, nondistended, normoactive bowel sounds. No palpable organomegaly. MUSCULOSKELETAL: No joint swelling or deformity. EXTREMITIES: No cyanosis, clubbing, biltateral lower extremity edema, right greater than left Right foot cooler than left with positive pulses NEUROLOGICAL: Gross neurological examination did not reveal any focal deficits. SKIN: No rashes. Assessment and plan -Acute recurrent pulmonary embolism without evidence for right heart strain, however RV dilation found on echocardiogram was new compared to previous echo: His risk factors include smoking, obesity, recent infection. Patient has not been ambulating since his recent upper respiratory infection. He is now evaluated in ICU S/P EKOS procedure for acute bilateral PE. He has been transitioned to Xarelto. Possible of new PE development s/p EKOS -Acute DVT right popliteal with history chronic DVT in the left s/p [place] filter placement today -Near syncope with LOC on Saturday after ambulation received atropine, brain CT negative for acute -Troponin elevation secondary to pulmonary embolism and RV dilation -Fever and tachycardia: Secondary to pulmonary embolism, resolved. -Leukocytosis, most likely reactive from PE and shallow respirations -History of PE and DVT in the past patient will need lifelong anticoagulation patient presently doesn't have IVC filter at this time, was removed in 2014. on Xarelto in the past, noncompliant possible due to reported history of bleeding hemorrhoids. -Nicotine use: Counseling was provided will need ongoing support, nicotine patch offered -History of COPD, not in exacerbation -Obesity with obstructive sleep apnea DVT prophylaxis: Xarelto GI prophylaxis: On pepcid FULL CODE Plan Lexiscan stress test in the morning Continue on oxygen support Nicotine patch Continue IV antbiotics, updrafts, IS Continue to monitor in the ICU Prognosis guarded Objective - Vital Signs Vital signs: Vital Signs Temp 98.2 F 07/31/21 08:00 Pulse 82 07/31/21 10:00 Resp 17 07/31/21 10:00 BP 153/91 07/31/21 10:00 Pulse Ox 95 07/31/21 10:00 Intake & Output 07/30/21 07/31/21 07/31/21 18:59 06:59 18:59 Intake Total 400 440 100 Output Total 675 725 0 Balance -275 -285 100 Weight 168 kg Intake: IV 150 200 100 Cefepime 2 gm In Sodium 100 200 100 Chloride 0.9% 100 ml @ 25 mls/hr IVPB Q12HR [facility] Rx #:[id number] Oral 250 240 Output: Urine 675 725 0 Other: Voiding Method Urinal Urinal # Voids 1 0 0 # Bowel Movements 0 - Labs CBC & Chem 7: 07/31/21 05:36 07/31/21 05:36 Labs: Abnormal Lab Results - Last 24 Hours (Table) 07/31/21 07/31/21 07/31/21 Range/Units 05:36 05:36 05:36 WBC 12.6 H (3.8-10.6) k/uL Chloride 108 H (98-107) mmol/L Troponin I 0.236 H* (0.000-0.034) ng/mL Assessment and Plan Time with Patient: Greater than 30
[2021-07-31] MEDS ORDERED: ALPRAZolam 0.25 MG TAB PO STA (13:35)
[2021-07-31] MEDS ORDERED: IPRATROPIUM-ALBUTEROL 3 ML NEB INHALATION PRN (13:36)
--- NOTE | 2021-07-31 14:22 | P.PN ---
Subjective Progress Note Date: 07/31/21 Principal diagnosis: Acute recurrent unprovoked pulmonary embolism 07/30 2021, I'm seeing the patient for a follow-up. Events from yesterday was noted. The patient while taking a short walk yesterday and within 30-50 feet of walking, the patient became unresponsive. He is up rolling of the eyes. No previous seizure activity was noted. Noted the patient became hemodynamically unstable. He became bradycardic. He did not lose a pulse. He was given atropine. He was immediately placed back on his bedside. He became tachycardic and hypotensive and subsequently his blood pressure improved and his heart rate slowed down. He totally regained back his neurologic functions. Based on that, I did a CT angiogram. The blood clots on extensive and they're bilateral. There is RV strain pattern. I think that there is some interval progression the blood clots. I cannot absolutely say there is any new clots, however, despite being treated with EKOS and anticoagulation with Xarelto, the patient has developed progression of the left main artery clot with possibly a septic component to it. As such, the patient was kept in a bedrest. He is currently on 4 L of oxygen by nasal cannula. Discussed the case with vascular surgery. Discussed the case with cardiology. We'll decide to proceed with an IVC filter placement due to the critical nature of the patient's pulmonary embolism and the hemodynamic instability the patient encountered while being on maximal treatme nt. He does have RV dysfunction. He may not be able to handle another episode of clotting or embolization. The patient has no hemoptysis. The patient is hemodynamically stable at this point in time. No cough. No chest pain. There is some limited troponin leak. The plan is to proceed with an IVC filter placement today. Reevaluated today on , patient remains in the ICU, seems to be quite comfortable, he is on 2 L nasal cannula, O2 sats is 95%. Patient is on Xarelto, he is hemodynamically stable, his Xarelto doses 15 mg twice a day, patient is also status post IVC filter placement, in addition to that the patient has EKOS thrombolytic treatment on 07/29. Patient does not seem to be in any distress today, and I plan to eventually transferred to a cardiac floor. However he was told by cardiology that he may have a stress test done in the next 24 hours. Cardiology is concerned about possible non-ST elevation myocardial infarction. CBC is normal electrolytes are normal renal profile is normal troponin is trending down and is 0.236 today. Objective - Vital Signs Vital signs: Vital Signs Temp 99.0 F 07/31/21 12:00 Pulse 93 07/31/21 14:00 Resp 28 H 07/31/21 14:00 BP 117/68 07/31/21 14:00 Pulse Ox 94 L 07/31/21 14:00 Intake & Output 07/30/21 07/31/21 07/31/21 18:59 06:59 18:59 Intake Total 400 440 100 Output Total 675 725 0 Balance -275 -285 100 Weight 168 kg Intake: IV 150 200 100 Cefepime 2 gm In Sodium 100 200 100 Chloride 0.9% 100 ml @ 25 mls/hr IVPB Q12HR [facility] Rx #:[id number] Oral 250 240 Output: Urine 675 725 0 Other: Voiding Method Urinal Urinal # Voids 1 0 0 # Bowel Movements 0 0 - Exam Physical Exam revealed 41-year-old white male obese in no distress. Head: Atraumatic, normocephalic. HEENT:[Neck is supple.] [No neck masses.] [No thyromegaly.] [No JVD.] Chest: [Clear throughout, no crackles, no rhonchi, no wheezes.] Cardiac Exam: [Normal S1 and S2, no S3 gallop, no murmur.] Abdomen: [Soft, nontender, no megaly, no rebound, no guarding, normal bowel sounds.] Extremities: [No clubbing, no edema, no cyanosis.] Neurological Exam: [No focal neurologic deficit.] Psychiatric: Normal mood affect and normal mental status examination. Skin: No rashes. - Labs CBC & Chem 7: 07/31/21 05:36 07/31/21 05:36 Labs: Abnormal Lab Results - Last 24 Hours (Table) 07/31/21 07/31/21 07/31/21 Range/Units 05:36 05:36 05:36 WBC 12.6 H (3.8-10.6) k/uL Chloride 108 H (98-107) mmol/L Troponin I 0.236 H* (0.000-0.034) ng/mL Assessment and Plan Assessment: acute recurrent unprovoked pulmonary embolism. The patient has significant clot burden on the CT angiogram and the patient has bilateral pulmonary embolism. Troponins are elevated. No evidence of any RV strain pattern based on the CAT scan finding. 2-D echocardiogram was completed and the patient was found to have RV dilatation without any significant pulmonary hypertension or RV strain pattern. EKOS was offered and was complete without any complications. Right lower extremity DVT/popliteal. Status post IVC filter placement Previous history of DVT requiring IVC filter insertion and subsequent removal History of COPD Obstructive sleep apnea syndrome Obesity Troponin leak most likely secondary to pulmonary embolism doubt myocardial infarction. Recommendation: Continue present supportive care measures. Continue Xarelto 15 mg by mouth twice a day. Possible transfer out of the ICU in the next 24 hours. We'll continue to follow. Time with Patient: Less than 30
--- NOTE | 2021-07-31 14:22 | P.PN ---
Subjective Progress Note Date: 07/31/21 Patient was seen and examined lying in bed in the ICU. He appears in no acute distress. No acute changes through the night. He is status post IVC filter placement. Access site without any bleeding. Objective - Vital Signs Vital signs: Vital Signs Temp 99.0 F 07/31/21 12:00 Pulse 93 07/31/21 14:00 Resp 28 H 07/31/21 14:00 BP 117/68 07/31/21 14:00 Pulse Ox 94 L 07/31/21 14:00 Intake & Output 07/30/21 07/31/21 07/31/21 18:59 06:59 18:59 Intake Total 400 440 100 Output Total 675 725 0 Balance -275 -285 100 Weight 168 kg Intake: IV 150 200 100 Cefepime 2 gm In Sodium 100 200 100 Chloride 0.9% 100 ml @ 25 mls/hr IVPB Q12HR [facility] Rx #:[id number] Oral 250 240 Output: Urine 675 725 0 Other: Voiding Method Urinal Urinal # Voids 1 0 0 # Bowel Movements 0 0 - Exam General appearance: The patient is alert, oriented, appears in no acute distress. HET: Head is normocephalic and atraumatic. Pupils are equal and reactive. Neck: Supple without lymphadenopathy. Trachea midline. No audible carotid bruit. Abdomen: Soft, morbidly obese, nontender, nondistended. Extremities: Normal skin color and turgor. No cyanosis, rash, ulceration, clubbing, or edema. Access site without any hematoma or active bleeding. Palpable +2 dorsalis pedis pulses bilaterally. Neurological: No focal deficits. Strength and sensation are grossly intact. - Labs CBC & Chem 7: 07/31/21 05:36 07/31/21 05:36 Labs: Abnormal Lab Results - Last 24 Hours (Table) 07/31/21 07/31/21 07/31/21 Range/Units 05:36 05:36 05:36 WBC 12.6 H (3.8-10.6) k/uL Chloride 108 H (98-107) mmol/L Troponin I 0.236 H* (0.000-0.034) ng/mL Assessment and Plan Assessment: 1. Bilateral lower extremity DVT involving the popliteal segment status post IVC filter placement 2. Acute recurrent pulmonary embolism in spite of adequate anticoagulation 3. Morbid obesity 4. Noncompliance 5. Status post TPA thromboliasis for submassive pulmonary embolism during this hospitalization 6. Possible hypercoagulable syndrome Plan: 1. Patient is status post IVC filter placement 2. Recommend weight loss 3. Recommend support stockings 4. Consider outpatient follow-up with hematology Thank you for this consultation, we will sign off at this time. The impression and plan of care has been dictated as directed. Dr. Neumann I performed a history and examination of this patient, discussed the same with the dictator. I agree with the dictator's note ,documented as a scribe. Any additional findings or plans will be noted.
[2021-07-31] MEDS: polyethylene glycoL 3350 17 GM POWD.PACK PO SCH (20:28)
[2021-08-01] MEDS: HYDROcodone/APAP 10-325MG 1 EACH TAB PO PRN ×3 (00:40→15:16)
[2021-08-01] MEDS: NICOTINE 7MG/24HR PATCH TRANSDERM SCH ×2 (00:47→11:37)
[2021-08-01 07:45] LABS: African American GFR (CKD) >90 (>60 ml/min/1.73 sqM); Anion Gap 3 mmol/L; Blood Urea Nitrogen 21 mg/dL (9-20); Calcium 9.8 mg/dL (8.4-10.2); Carbon Dioxide 28 mmol/L (22-30); Chloride 108 mmol/L (98-107); Glucose 105 mg/dL (74-99); Non-African American GFR(CKD) >90 (>60 ml/min/1.73 sqM); Potassium 4.3 mmol/L (3.5-5.1); Sodium 139 mmol/L (137-145)
--- NOTE | 2021-08-01 08:20 | P.PN ---
Subjective The patient presents with acute dyspnea. His symptoms started 3 days ago, worse on presentation with sharp chest pain. Prior to that he had what he describes as an upper respiratory infection. He was found to have evidence of pulmonary embolism on his CAT scan with multiple large pulmonary embolism in the lower lobe pulmonary arteries. There was no evidence of right heart strain. The patient has a prior history of pulmonary embolism, multiple episodes with the last one 10 years ago and a history of DVT. He was maintained on anticoagulat ion initially Coumadin and subsequently Xarelto he stopped because of bleeding hemorrhoids. He has a prior history of IVC filter that was removed. Patient denies any history of cardiac disease, he denies any dizziness, palpitations or syncope. He has occasional peripheral edema. He is not very active physically. He denies any recent discomfort in the lower extremities or recent trauma. He has no history of hypertension, hyperlipidemia or diabetes. He smokes over a pack a day. He denies any alcohol abuse. He has chronic episodes of wheezing and cough related to his COPD. At a rate of [address]-T segment changes with T-wave inversion anteriorly. His duplex scan of the lower extremities showed evidence of right DVT in the right popliteal vein and nonocclusive thrombus of indeterminate age in the left popliteal vein. His troponin are mildly elevated at 0.318, 0.147, 0.075. His NT proBNP was 1750. 08/01 Patient seen and examined. Patient admits she feels fairly well just sitting there however is still anxious about being up and moving around. Denies any chest pain or pressure. Denies any significant dyspnea however did not do much more than walk from the bathroom to his bed. Lexiscan stress test ordered for today. Head: Normocephalic. Alert and oriented in no acute distress, obese Eyes: Sclerae nonicteric. Neck: Good carotid upstroke, no bruit, no jugular venous distention. Lungs: Clear to auscultation. Heart: Regular rate and rhythm, S1-S2, no S3, no murmur or rub. Abdomen: Soft nontender, positive bowel sounds no organomegaly. Extremities: No edema, intact distal pulses. Meli signs negative Impression: 1. Acute multiple pulmonary embolism 2. NSTEMI 3. Prior history of pulmonary embolism, noncompliant with anticoagulation 4. History of chronic tobacco use 5. Dyspnea on exertion 6. Near syncopal episode with bradycardia after walking with significant bradycardia improved with atropine. May be vagal mediated versus more likely fe lt related to hypoxia from new PE 7. CTA showing worsened PE after bradycardic episode. Concern of further thromboembolism. Status post [place] filter Plan: Continue with anticoagulation with Xarelto. Patient is status post [place] filter placement due to concern of worsened PE, thromboembolism which likely caused his bradycardiac episode. Attempt to increase activity. Most of patient's symptoms were dyspnea with mild exertion given minimally elevated troponins we will further check Lexiscan stress test event patient is still significant weight anxious. Further recommendations pending results. Objective - Vital Signs Vital signs: Vital Signs Temp 97.8 F 08/01/21 04:00 Pulse 70 08/01/21 07:00 Resp 18 08/01/21 07:00 BP 115/63 08/01/21 07:00 Pulse Ox 94 L 08/01/21 07:00 Intake & Output 07/31/21 08/01/21 08/01/21 18:59 06:59 18:59 Intake Total 500 460 Output Total 950 500 0 Balance -450 -40 0 Weight 166.8 kg Intake: IV 100 100 Cefepime 2 gm In Sodium 100 100 Chloride 0.9% 100 ml @ 25 mls/hr IVPB Q12HR [facility] Rx #:[id number] Oral 400 360 Output: Urine 950 500 0 Other: Voiding Method Urinal Urinal # Voids 0 # Bowel Movements 0 - Labs CBC & Chem 7: 07/31/21 05:36 08/01/21 07:01 Labs: Abnormal Lab Results - Last 24 Hours (Table) 07/31/21 08/01/21 Range/Units 05:36 07:01 Chloride 108 H (98-107) mmol/L BUN 21 H (9-20) mg/dL Glucose 105 H (74-99) mg/dL Troponin I 0.236 H* (0.000-0.034) ng/mL
[2021-08-01 09:07] VITALS: TEMP 98.8
[2021-08-01] MEDS: CEFEPIME 2 GM in SODIUM CHLORIDE 0.9% 100 ML IVPB SCH (11:28)
[2021-08-01] MEDS: RIVAROXABAN 15 MG TAB PO SCH (11:35)
[2021-08-01] MEDS: FAMOTIDINE 20 MG TAB PO SCH (11:35)
[2021-08-01] MEDS: DOCUSATE 100 MG CAP PO SCH ×2 (11:36→15:16)
--- NOTE | 2021-08-01 11:47 | NM ---
EXAMINATION TYPE: NM stress lexiscan cardiolite DATE OF EXAM: 08/01/2021 COMPARISON: NONE HISTORY: Myocardial infarction TECHNIQUE: After the intravenous administration of 10.6 mCi Tc 99m Sestamibi - Cardiolite resting SP ECT images acquired 45 minutes post injection. The patient received 0.4mg Lexiscan, 26.6 mCi Tc 99m Sestamibi - Stress images obtained [address] injection FINDINGS: Exam may be somewhat limited technically due to patient body habitus. Review of stress and rest SPECT images demonstrates decreased uptake along the inferior wall and apex seen on stress and rest images. Gated analysis shows normal wall motion with an estimated left vent ricular ejection fraction of 51 %. IMPRESSION: No scintigraphic evidence for reversible ischemia. Difficult to exclude prior infarct.
[2021-08-01 12:50] VITALS: BMI 49.8
--- NOTE | 2021-08-01 13:09 | P.PN ---
Subjective Progress Note Date: 08/01/21 On today's evaluation of 07/27/2021, the patient is still having some vague chest discomfort and some ongoing exertional dyspnea. Nevertheless, no hemodynamic instability. No tachycardia. No hypotension. No hypoxemia and the patient is currently on room air oxygen. 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 There was mild aortic valve sclerosis, mild mitral regurgitation and tricuspid regurgitation. Patient is currently on IV heparin. The patient is going to be switched to antipronation orally with Eliquis. No bleeding complications. The patient also has a right lower extremity popliteal DVT. On today's blood work, the white cell count is at 14.3 with a hemoglobin of 15.5. Patient has a PTT of 49.7. Rest of the carotids are all within normal limits. Room air pulse oximetries 99%. 07/28/2021, seeing the patient for a follow-up. Patient is still short of breath on room air oxygen. I elected discussion with cardiology. Based on an comparison that was done with an earlier echocardiogram, the RV dilatation was significant and there was of a new onset. As such, it was thought that they pulmonary embolism was the culprit. Based on that, it was recommended to proceed with intra-arterial thrombolytic therapy with EKOS. The patient is doing well. Hemodynamically stable. Has not been started on Eliquis yet. He remains on IV heparin. The plan is to proceed with the treatment and the patient will be transferred to the ICU following the intra-arterial thrombolytic therapy. The patient otherwise is doing well. Hemoglobin stable at 13.8 with a rate of down to 228. The renal function is stable with a creatinine of 0.8 and a BUN of 24 with a sodium level of 139. 2021, the patient completed EKOS and the thrombolytic therapy has been discontinued and the patient has completed the procedure without any complicat ion. Hemoglobin is stable at 13.1. He is started on oxygen at 3 L and this could be easily weaned off as the patient was not having any issues oxygenation prior to the procedure. White cell count at 13.7. Hemoglobin was 13.1. No respiratory distress at rest. The groin area is clean. Hemodynamically stable. Tolerating his diet. The plan is to remove the catheters on the patient on anticoagulation with Xarelto. 07/30 2021, I'm seeing the patient for a follow-up. Events from yesterday was noted. The patient while taking a short walk yesterday and within 30-50 feet of walking, the patient became unresponsive. He is up rolling of the eyes. No previous seizure activity was noted. Noted the patient became hemodynamically unstable. He became bradycardic. He did not lose a pulse. He was given atropine. He was immediately placed back on his bedside. He became tachycardic and hypotensive and subsequently his blood pressure improved and his heart rate slowed down. He totally regained back his neurologic functions. Based on that, I did a CT angiogram. The blood clots on extensive and they're bilateral. There is RV strain pattern. I think that there is some interval progression the blood clots. I cannot absolutely say there is any new clots, however, despite being treated with EKOS and anticoagulation with Xarelto, the patient has developed progression of the left main artery clot with possibly a septic component to it. As such, the patient was kept in a bedrest. He is currently on 4 L of oxygen by nasal cannula. Discussed the case with vascular surgery. Discussed the case with cardiology. We'll decide to proceed with an IVC filter placement due to the critical nature of the patient's pulmonary embolism and the hemodynamic instability the patient encountered while being on maximal treatment. He does have RV dysfunction. He may not be able to handle another episode of clotting or embolization. The patient has no hemoptysis. The patient is hemodynamically stable at this point in time. No cough. No chest pain. There is some limited troponin leak. The plan is to proceed with an IVC filter placement today. Reevaluated today on , patient remains in the ICU, seems to be quite comfortable, he is on 2 L nasal cannula, O2 sats is 95%. Patient is on Xarelto, he is hemodynamically stable, his Xarelto doses 15 mg twice a day, patient is also status post IVC filter placement, in addition to that the patient has EKOS thrombolytic treatment on 07/29. Patient does not seem to be in any distress today, and I plan to eventually transferred to a cardiac floor. However he was told by cardiology that he may have a stress test done in the next 24 hours. Cardiology is concerned about possible non-ST elevation myocardial infarction. CBC is normal electrolytes are normal renal profile is normal troponin is trending down and is 0.236 today. The patient is seen today 08/01/2021 in follow-up in the ICU. He is currently sitting up in a chair at the bedside. Awake and alert in no acute distress. Maintaining O2 saturation in the low 90s on room air. He's been afebrile. Hemodynamically stable. Sodium 139. Potassium 4.3. Creatinine 0.75. He remains on cefepime. Anticoagulated with Xarelto. NicoDerm patch is in place. Lexiscan stress test today revealed no evidence of reversible ischemia. Objective - Vital Signs Vital signs: Vital Signs Temp 98.8 F 08/01/21 08:00 Pulse 98 08/01/21 12:00 Resp 19 08/01/21 12:00 BP 135/96 08/01/21 12:00 Pulse Ox 93 L 08/01/21 12:00 Intake & Output 07/31/21 08/01/21 08/01/21 18:59 06:59 18:59 Intake Total 500 460 Output Total 950 500 0 Balance -450 -40 0 Weight 166.8 kg 166.8 kg Intake: IV 100 100 Cefepime 2 gm In Sodium 100 100 Chloride 0.9% 100 ml @ 25 mls/hr IVPB Q12HR [facility] Rx #:[id number] Oral 400 360 Output: Urine 950 500 0 Other: Voiding Method Urinal Urinal # Voids 0 # Bowel Movements 0 - Exam GENERAL EXAM: Alert, very pleasant 41-year-old gentleman, up in a chair at the bedside, on room air oxygen, comfortable in no apparent distress. HEAD: Normocephalic. EYES: Normal reaction of pupils, equal size. NOSE: Clear with pink turbinates. THROAT: No erythema or exudates. NECK: No masses, no JVD. CHEST: No chest wall deformity. LUNGS: Equal air entry with no crackles, wheeze, rhonchi or dullness. CVS: S1 and S2 normal with no audible murmur, regular rhythm. ABDOMEN: No hepatosplenomegaly, normal bowel sounds, no guarding or rigidity. SPINE: No scoliosis or deformity SKIN: No rashes CENTRAL NERVOUS SYSTEM: No focal deficits, tone is normal in all 4 extremities. EXTREMITIES: There is no peripheral edema. No clubbing, no cyanosis. Peripheral pulses are intact. - Labs CBC & Chem 7: 07/31/21 05:36 08/01/21 07:01 Labs: Abnormal Lab Results - Last 24 Hours (Table) 08/01/21 Range/Units 07:01 Chloride 108 H (98-107) mmol/L BUN 21 H (9-20) mg/dL Glucose 105 H (74-99) mg/dL Assessment and Plan Assessment: 1 Acute recurrent unprovoked pulmonary embolism. The patient has significant clot burden on the CT angiogram and the patient has bilateral pulmonary embolism. Troponins are elevated. No evidence of any RV strain pattern based on the CAT scan finding. 2-D echocardiogram was completed and the patient was found to have RV dilatation without any significant pulmonary hypertension or RV strain pattern. This is of a new onset and was not present on previous echocardiogram that was done and [facility]. Based on comparison that was done by cardiology, the patient has obvious RV dysfunction/dilatation is considered to be related to the pulmonary embolism for that reason intra- arterial thrombolytic therapy EKOS was offered and was completed on 07/28/2021 without any complications. The sheath and the catheters were removed 07/29/2021. Nevertheless, while doing some limited activity and within 50 feet of walking, the patient became hemodynamically unstable, bradycardic, hypotensive and he had lost consciousness. We think that this is related to pulmonary embolism and RV dysfunction. Whether this is a progression of the original embolization versus a new embolization is to be determined. Based on the CAT scan findings, the left pulmonary artery clot has extended into the left main pulmonary artery trunk and hasn't several component to it. There are filling defects in the pulmonary arteries bilaterally consistent with extensive embolization despite EKOS and despite being on anticoagulation with Xarelto. Subsequently the patient had undergone an IVC filter placement on 07/30/2021. On today's evaluation 08/01/2021 the patient is doing much better. He is maintaining O2 saturations in the 90s on room air. He's up in a chair at the bedside. 2 Right lower extremity DVT, popliteal 3 Previous history of DVT and pulmonary embolism back in 2009 and this involved the left lower extremity. 4 Previous history of IVC filter insertion and subsequent removal. 5 Previous history of hemorrhoidal bleed 6 COPD 7 Obesity 8 Obstructive sleep apnea 9 Chronic tobacco dependence Plan: The patient was seen and evaluated Stable from the pulmonary and critical care standpoint Could be discharged home if cleared by cardiology If not, cleared for transfer out of the ICU to a selective care Lifelong anticoagulation with Xarelto Educated regarding the importance of complete smoking cessation Follow-up in the office in 1-2 weeks' I, the cosigning physician, performed a history & physical examination of the patient. Lungs sounds are clear. Maintaining good O2 saturations in the 90s on room air. I discussed the assessment and plan of care with my nurse prac titioner, Nandini Nagy. I attest to the above note as dictated by her.
--- NOTE | 2021-08-01 14:43 | EST ---
EXERCISE STRESS DATE OF STUDY: 08/01/2021 AGE: 41 SEX: M HT: 6" WT: 367 lbs. PROTOCOL: Lexiscan STAGE: NA DURATION OF EXERCISE: 5 minutes HEART RATE REST: 83 BLOOD PRESSURE REST: 106/79 MAXIMUM HEART RATE ACHIEVED: 116 MAXIMUM BLOOD PRESSURE: 136/91 85% MPHR: 150 100% MPHR: 177 METS: NA INDICATIONS: Chest pain. CLINICAL INFORMATION: STRESS DATA: Heart rate is 83, pressure is 106/79 mmHg. Baseline EKG showed sinus mechanism. The patient was given 0.4 mg of Lexiscan over 15 seconds per protocol. Max heart rate was 116 beats per minute and maximum pressure was 136/91 mmHg. Clinically the patient did not have any symptoms. The EKG did not show any significant ST or T- wave abnormalities concerning for ischemia. CONCLUSION: 1. Nondiagnostic electrocardiogram stress testing in response to Lexiscan. 2. Please follow up on the Cardiolite portion on a separate report from Radiology Department. MMODL / IJN: [id number] /
[2021-08-01 16:12] VITALS: BP 122/86; PULSE 90; RESP 25
--- NOTE | 2021-08-02 10:02 | P.DS ---
Providers Date of admission: 07/25/21 23:04 Attending physician: Mela Colon Consults: 07/25/21 23:07 Consult Physician Urgent Consulting Provider: [facility] Consult Reason/Comments: acute bilateral pe, nstemi Do you want consulting provider notified?: Already Contacted 07/26/21 07:57 Consult Physician Routine Consulting Provider: Yue Corbett Consult Reason/Comments: pe/copd Do you want consulting provider notified?: Yes Primary care physician: Chinedu Mcfadden Hospital Course: Final Diagnosis -Acute recurrent pulmonary embolism without evidence for right heart strain, however RV dilation found on echocardiogram was new compared to previous echo: His risk factors include smoking, obesity, recent infection. Patient has not been ambulating since his recent upper respiratory infection. He was in ICU S/P EKOS procedure for acute bilateral PE. He has been transitioned to Xarelto. Possible of new PE development s/p EKOS due to syncopal episode after ambulation in a patient with acute right DVT; patient is now S/P angel filter placement. -Acute DVT right popliteal with history chronic DVT in the left s/p Angel filter placement today -Near syncope with LOC on Saturday after ambulation received atropine, brain CT negative for acute -Troponin elevation secondary to pulmonary embolism and RV dilation -Fever and tachycardia: Secondary to pulmonary embolism, resolved. -Leukocytosis, most likely reactive from PE and shallow respirations -History of PE and DVT in the past patient will need lifelong anticoagulation patient presently doesn't have IVC filter at this time, was removed in 2014. on Xarelto in the past, noncompliant possible due to reported history of bleeding hemorrhoids. S/P angel filter placement this admission, xarelto on discharge -Nicotine use: Counseling was provided will need ongoing support, nicotine patch offered -History of COPD, not in exacerbation -Obesity with obstructive sleep apnea -Anxiety, situational, recommend therapy outpt, pt agreeing Discharge Disposition Patient discharged home with to follow up with PCP in 2-3 days, as well as cardiology, pulmonary, and vascular services. Patient cleared by consultations. He would like to be discharged home. Hospital Course This is a pleasant 41-year-old male who presents for hospital with sharp chest pain, sporadic in nature. Patient had a recent upper respiratory infection under May, was negative for COVID-19 at that time. He had taken in home tests. Patient does have a history of DVT in the past he was initially in Coumadin and then switched to draw xarelto because of a hemorrhoidal bleed patient was taken off of the Xarelto and received an IVC filter and was subsequently resumed on Xarelto. IVC filter was removed in 2014. Patient is on medication on and off due to side effects. The patient presented to the [facility] he was short of breath, he does report a smoking a pack of cigarettes per day but was willing to quit this admission. CT of the chest showed pulmonary embolism bilateral lower lobes without evidence of right heart strain and was started on heparin drip. Venous Doppler shows positive for DVT right popliteal vein with possible nonoccluding thrombus of indeterminate age with a left popliteal vein. Cardiology was consult for possible EKOs procedure. Pulmonary and vascular also on consult. Echocardiogram showed an EF of 50-55% with mild concentric left ventricular hypertrophy, right ventricle severely enlarged, right ventricle septal [place] with diastole and systole which is consistent for ventricular volume pressure overload. RV string was not performed. There was also mild aortic valve sclerosis, mild mitral regurgitation and mild tricuspid regurgitation. Reports are obtained from [place] for a previous echocardiogram that was completed in 2019 and when compared it appears right ventricular enlargement was new. Cardiology then recommended EKOs procedure. Patient underwent E Kos transcatheter infusion therapy on 07/28/2021, and was transferred to the intensive care unit. Patient tolerated procedure well. Postop he did develop some scattered wheezing, updrafts were initiated patient was requiring 2-3 L nasal cannula. On July 29 patient is up ambulating in the hallway did not make it very far and went back to his room and was sitting up in the chair with his significant other at bedside. Shortly after patient had a syncopal episode with loss of consciousness and per significant other at the bedside just prior to he stated his vision went blurry, and he was foaming at the mouth. At that time patient's heart rate did drop to the 30s he was given a dose of atropine and his heart rate increased up to 170s to 140s. He was taken for a brain CT which showed no acute intracranial process. He was then taken for repeat CT angiography of the chest which showed interval development of nonocclusive thrombus in the left main pulmonary artery that minimally straddles the pulmonary artery bifurcation. There is now evidence of mild right heart strain. There is redemonstration of multiple large filling defects in the distal main pulmonary arteries bilaterally extending into the upper and lower lobes. There is interval development of left lower lobe pneumonia. On 07/30/2021 patient was taken for IVC filter with Dr. Chris. Additionally cardiology recommended patient undergo a Cardiolite Lexiscan stress test prior to discharge which was completed and shows no reversible ischemia. EKG did not show any significant ST or T-wave abnormalities concerning for ischemia. Blood pressure has remained stable in 120s over 80s. Labs on admission show white count 16.6, platelets stable to 42, hemoglobin 15.8, sodium 141, potassium 5.4, chloride 108, BUN 17, creatinine 0.85, glucose 107, reticulocyte acid 1.4, mag 2.0, troponin elevation of 0.318, 0.147, 0.075. BNP elevated at 1750. Covid and influenza not detected. 08/02/2021 Patient evaluated in the intensive care unit status post stress test. Significant other is at the bedside. He would like to be discharged home, he is having some anxiety. He passed oxygen home test. He has been on room air since this morning. Overall he is feeling significantly better and less short of breath no complaints of any chest pain. He was cleared by cardiology and pulmonary services for discharge today. Patient received 6 days of IV cefepime this hospital stay for possible development of pneumonia as mentioned above we continued on a short coarse of cefdinir on discharge. Patient also encouraged to use IS. He verbalizes he will be quitting smoking, currently denying need for nicotine patch, and also will cut down/ quit drinking pop. He understands need for weight loss. Denies chest pain, denies n/v/d. Lungs clear, S1 S2 auscultated, abdomen is soft and nontender, Focal neurological exam is negative. Vitals stable today. Please see medication reconciliation for a list of current medications. Thank you for allowing us to participate in the care of this patient! Patient Condition at Discharge: Fair Plan - Discharge Summary Discharge Rx Participant: No New Discharge Prescriptions: New Docusate [Colace] 100 mg PO DAILY cap Rivaroxaban [Xarelto Starter Pack] 0 mg PO DIRECTED 30 Days #1 packet Sodium Chloride 0.65% Nasal [Deep Sea (Saline)] 2 spray NASAL QID PRN ml PRN Reason: Dry Nasal Passages Cefdinir [Omnicef] 300 mg PO Q12HR 3 Days #6 capsule Continue Albuterol Sulfate [Ventolin HFA] 2 puff INHALATION RT-Q6H PRN PRN Reason: Shortness Of Breath HYDROcodone/APAP 10-325MG [Clint 10-325] 1 tab PO Q6HR PRN PRN Reason: Pain Famotidine 40 mg PO BID PRN PRN Reason: Gi Upset Ergocalciferol (Vitamin D2) [Drisdol (50,000 Iu)] 1,250 mcg PO MO Discharge Medication List Albuterol Sulfate [Ventolin HFA] 2 puff INHALATION RT-Q6H PRN 07/25/21 [History] Ergocalciferol (Vitamin D2) [Drisdol (50,000 Iu)] 1,250 mcg PO MO 07/25/21 [History] Famotidine 40 mg PO BID PRN 07/25/21 [History] HYDROcodone/APAP 10-325MG [Clint 10-325] 1 tab PO Q6HR PRN 07/25/21 [History] Cefdinir [Omnicef] 300 mg PO Q12HR 3 Days #6 capsule 08/01/21 [Rx] Docusate [Colace] 100 mg PO DAILY cap 08/01/21 [Rx] Rivaroxaban [Xarelto Starter Pack] 0 mg PO DIRECTED 30 Days #1 packet 08/01/21 [Rx] Sodium Chloride 0.65% Nasal [Deep Sea (Saline)] 2 spray NASAL QID PRN ml 08/01/21 [Rx] Follow up Appointment(s)/Referral(s): Omero Miles MD [STAFF PHYSICIAN] - 2 Weeks (Hematology Pt stated he would make his own appointment) Juan Mukherjee MD [STAFF PHYSICIAN] - 1 Week ( Pt stated he would make his own appointment) Chinedu Mcfadden DO [Primary Care Provider] - 1-2 days ( Pt stated he would make his own appointment) Fatimah Neumann DO [STAFF PHYSICIAN] - As Needed ( Pt stated he would make his own appointment if needed) Yue Corbett MD [STAFF PHYSICIAN] - 1 Week ( Pt stated he would make his own appointment) Ambulatory/Diagnostic Orders: Complete Blood Count w/diff [LAB.AMB] Time Frame: 3 Days, Location: None Selected Patient Instructions/Handouts: Pulmonary Embolism (DC), How to Stop Smoking (DC), Heart Healthy Diet (DC), Deep Vein Thrombosis (DC) Discharge Disposition: HOME SELF-CARE
--- NOTE | 2021-08-02 11:02 | CDI ---
Documentation Clarification Form Date: 08/02/2021 10:09:09 AM From: Brandie Fox RN, CCDS Admit Date: 07/25/2021 11:04:00 PM Patient Name: Alejandro Hernandez Visit Number: [id number] Discharge Date: 08/01/2021 04:45:00 PM ATTENTION: The Clinical Documentation Specialists (CDI) and [facility] Coding Staff appreciate your assistance in clarifying documentation. Please respond to the clarification below the line at the bottom and electronically sign. The CDI & [facility] Coding staff will review the response and follow-up if needed. Please note: Queries are made part of the Legal Health Record. If you have any questions, please contact the author of this message via ITS. Dr. Fausto Choi NSTEMI (non-ST elevated myocardial infarction) is documented in the emergency department clinical impression on 07/25/21 and in your progress notes starting on . Additional clarification regarding the status of the NSTEMI is requested. 07/26/21 Cardiology consult: Mild troponin elevation, secondary to the pulmonary embolism, no evidence of acute ischemia History/Risk Factors: PE, DVT, COPD, current every day smoker Clinical Indicators: 41-year-old male present to ED with shortness of breath and chest pain. He was found to have evidence of pulmonary embolism on his CAT scan, He is not very active physically. He is positive for smoking over a pack a day. Prior history of pulmonary embolism and DVT. 2 Vital signs: 165/86 105 22 100.6 94 % RA 2 Ultrasound/Doppler lower extremity: Right leg: positive for DVT, right popliteal vein, and Left leg: possible non-occluding thrombus of in determinant age within left popliteal vein 2 Chest CTA: Multiple large pulmonary emboli mainly in the lower lobe pulmonary arteries. No evidence of right heart strain. 2 Troponin: .0.318, (07/26) Troponin 0.147, 0.075 (07/29) Troponin 0.369 (07/31) Troponin 0.236 07/25 NT proBNP was 1750 07/25 EKG Results: sinus tachycardia with a ventricular rate of 122, there is biphasic T waves in V2 through V4 Treatment: ICU/Telemetry Monitoring Heparin drip 07/25-2/4 .9NS 1,000 Bolus 07/26 07/27 ECHO: Left ventricular systolic function is low -normal with, an EF 50-55% Right ventricle is severely enlarged, dilation of his RV, mild mitral and tricuspid regurgitation present Please clarify NSTEMI: [ X ] NSTEMI, POA [ ] NSTEMI, Not POA [ ] Unable to determine [ ] Other Condition, please specify (Template Last Revised: August 2020) MTDD
--- NOTE | 2021-08-02 11:46 | CDI ---
Documentation Clarification Form Date: 08/02/2021 11:06:58 AM From: Brandie Fox RN CCDS Admit Date: 07/25/2021 11:04:00 PM Patient Name: Alejandro Hernandez Visit Number: [id number] Discharge Date: 08/01/2021 04:45:00 PM ATTENTION: The Clinical Documentation Specialists (CDI) and [facility] Coding Staff appreciate your assistance in clarifying documentation. Please respond to the clarification below the line at the bottom and electronically sign. The CDI & [facility] Coding staff will review the response and follow-up if needed. Please note: Queries are made part of the Legal Health Record. If you have any questions, please contact the author of this message via ITS. Dr. Yue Corbett There is documentation of RV dysfunction in progress note on 07/28/21. Additional clarification is requested. History/Risk Factors: PE, DVT, COPD, Obesity, current every day smoker Clinical Indicators: 41-year-old male present to ED with shortness of breath and chest pain. He was found to have evidence of pulmonary embolism on his CAT scan, He is not very active physically. He is positive for smoking over a pack a day. Prior history of pulmonary embolism and DVT. 2 Vital signs: 165/86 105 22 100.6 94 % RA 2 Ultrasound/Doppler lower extremity: Right leg: positive for DVT, right popliteal vein, and Left leg: possible non-occluding thrombus of in determinant age within left popliteal vein 2/ Chest CTA: Multiple large pulmonary emboli mainly in the lower lobe pulmonary arteries. No evidence of right heart strain. 2 Troponin: .0.318, (07/26) Troponin 0.147, 0.075 (07/29) Troponin 0.369 (07/31) Troponin 0.236 07/25 NT proBNP was 1750 07/28 ECHO: found RV dilation without any significant pulmonary hypertension or RV strain . Progress notes on 07/31/21 " the patient has obvious RV dysfunction/dilation is considered to be related to the pulmonary embolism". Treatment: ICU/Telemetry monitoring Monitor O2 Sat's (Titrate) Heparin drip 07/25-07/28 .9NS 1,000 Bolus 07/26 Xarelto 15 MG PO BID 07/29 EKOS 07/28 IVC filter 07/31 Can you please clarify if the pulmonary embolism is? [ x ] Acute unprovoked Pulmonary Embolism with Acute cor pulmonale [ ] Acute recurrent unprovoked pulmonary embolism without acute cor pulmonale [ ] Other, please specify [ ] Unable to determine (Template Last Revised: August 2020) MTDD
== END 2021-08-01 16:45 | disposition home or self-care (01) | DRG 166 ==
LOC: EC 17:18 → 3SCARD 23:04 → 2SICU 07-28 13:50
PROVIDERS: ADMIT Hospitalist; ATTEND Hospitalist
PROC: 3E06317 Introduction of Other Thrombolytic into Central Artery, Percutaneous Approach (ICD-10-PCS; principal; 2021-07-28 07:30)
PROC: 02FQ3Z0 Fragmentation of Right Pulmonary Artery, Percutaneous Approach, Ultrasonic (ICD-10-PCS; principal; 2021-07-28 07:30)
PROC: 02FR3Z0 Fragmentation of Left Pulmonary Artery, Percutaneous Approach, Ultrasonic (ICD-10-PCS; principal; 2021-07-28 07:30)
PROC: 06H03DZ Insertion of Intraluminal Device into Inferior Vena Cava, Percutaneous Approach (ICD-10-PCS; 2021-07-30)
PROC: B51C1ZZ Fluoroscopy of Left Lower Extremity Veins using Low Osmolar Contrast (ICD-10-PCS; 2021-07-30)
DX: I26.09 Other pulmonary embolism with acute cor pulmonale (principal); I21.4 Non-ST elevation (NSTEMI) myocardial infarction; J18.9 Pneumonia, unspecified organism; I82.431 Acute embolism and thrombosis of right popliteal vein; Z68.43 Body mass index [BMI] 50.0-59.9, adult; J44.0 Chronic obstructive pulmonary disease with (acute) lower respiratory infection; I82.532 Chronic embolism and thrombosis of left popliteal vein; I95.9 Hypotension, unspecified; I08.3 Combined rheumatic disorders of mitral, aortic and tricuspid valves; E66.01 Morbid (severe) obesity due to excess calories; Z20.822 Contact with and (suspected) exposure to COVID-19; R00.1 Bradycardia, unspecified; T45.516A Underdosing of anticoagulants, initial encounter; F41.9 Anxiety disorder, unspecified; G47.33 Obstructive sleep apnea (adult) (pediatric); F32.A Depression, unspecified; K64.9 Unspecified hemorrhoids; Z91.128 Patient's intentional underdosing of medication regimen for other reason; F17.210 Nicotine dependence, cigarettes, uncomplicated; Z71.6 Tobacco abuse counseling; Z79.899 Other long term (current) drug therapy; Z86.711 Personal history of pulmonary embolism; Z71.3 Dietary counseling and surveillance
CPT/HCPCS: 36415; 37191; 37211; 70450; 71045; 71275; 78452; 80048; 80053; 83605; 83735; 83880; 84484; 85025; 85027; 85384; 85610; 85730; 87502; 87635; 93005; 93017; 93306; 93970; 94640; 96361; 96374; 96375; 99285